=== PATIENT | male | born 1955 | race Hispanic/Latino ===

== ENCOUNTER 2017-01-13 09:27 | Inpatient (IN) | payer MEDICARE, OTHER ==
--- NOTE | 2017-01-13 10:01 | ED PDOC ---
Arrival/HPI - General Historian: Patient, Family (sister) - History of Present Illness Time/Duration: Other (see hpi) Context: Home - General Chief Complaint: Lower Extremity Problem/Injury Time Seen by Provider: 01/13/17 09:46 - History of Present Illness Narrative History of Present Illness (Text): 01/13/17 09:57 This 61 yo male with pmh schizophrenia, HTN, presents to this ED with sister c/ o right foot and ankle erythema x 3 weeks. Patient stated ankle/foot redness worsen 2 weeks ago. Patient was seen by his flag football coach 8 days ago, who prescribed him Bactrim DS, and Indomethacin. Patient went back to see his Metrology Specialist today for follow up. According to patient and sister, Metrology Specialist stated redness has worsen, and patient will need to got to ED for IV antibiotic. Denies fever, sob, recent travel, recent surgery, streaking erythema, calf pain , or chills. Dr. Virgil Davis, PMD (Pallavi Torres) Past Medical History - Provider Review Nursing Documentation Reviewed: Yes - Cardiac Hx Cardiac Disorders: Yes Hx Hypertension: Yes - Pulmonary Hx Respiratory Disorders: No - Neurological Hx Neurological Disorder: No - HEENT Hx HEENT Disorder: No - Renal Hx Renal Disorder: No - Endocrine/Metabolic Hx Endocrine Disorders: No - Hematological/Oncological Hx Blood Disorders: No - Integumentary Hx Dermatological Disorder: No - Musculoskeletal/Rheumatological Hx Musculoskeletal Disorders: No - Gastrointestinal Hx Gastrointestinal Disorders: No - Genitourinary/Gynecological Hx Genitourinary Disorders: No - Psychiatric Hx Psychophysiologic Disorder: Yes (mood disorder) Hx Substance Use: No Family/Social History Family/Social History: Other (non-contributory) Smoking Status: Former Smoker Hx Alcohol Use: No Hx Substance Use: No Allergies/Home Meds Allergies/Adverse Reactions: Allergies No Known Allergies Allergy (Verified 01/13/17 09:37) Home Medications: Home Meds Medication Instructions Recorded Confirmed Benztropine [Cogentin] 0.5 mg PO BID 01/13/17 01/13/17 Losartan Potassium [Losartan 50 mg PO DAILY 01/13/17 01/13/17 Potassium] Ziprasidone [Geodon] 40 mg PO BID 01/13/17 01/13/17 Review of Systems - Review of Systems Constitutional: Normal. absent: Fatigue, Weight Change, Fevers Eyes: Normal ENT: Normal Respiratory: Normal Cardiovascular: Normal Gastrointestinal: Normal Genitourinary Male: Normal Musculoskeletal: Other (see hpi) Skin: Normal Neurological: Normal Endocrine: Normal Hemo/Lymphatic: Normal Psychiatric: Normal Physical Exam Temperature: Afebrile Blood Pressure: Normal Pulse: Regular Respiratory Rate: Normal Appearance: Positive for: Well-Appearing, Non-Toxic, Comfortable Pain Distress: None Mental Status: Positive for: Alert and Oriented X 3 - Systems Exam Head: Present: Atraumatic, Normocephalic Pupils: Present: PERRL Extroacular Muscles: Present: EOMI Conjunctiva: Present: Normal Mouth: Present: Moist Mucous Membranes Neck: Present: Normal Range of Motion Respiratory/Chest: Present: Clear to Auscultation, Good Air Exchange. No: Respiratory Distress, Accessory Muscle Use Cardiovascular: Present: Regular Rate and Rhythm, Normal S1, S2. No: Murmurs Abdomen: Present: Normal Bowel Sounds. No: Tenderness, Distention, Peritoneal Signs Back: Present: Normal Inspection. No: CVA Tenderness Upper Extremity: Present: Normal Inspection, Normal ROM, NORMAL PULSES, Neurovascularly Intact, Capillary Refill < 2s. No: Cyanosis, Edema Lower Extremity: Present: NORMAL PULSES, Normal ROM, Erythema, Temperature Abnormalties (right ankle and foot feel warmth on palpation, with surrounding erythema up to mid right lower leg. (+) mild erythema onl left ankle.), Neurovascularly Intact, Capillary Refill < 2 s. No: Edema, CALF TENDERNESS, Yenifer's Sign, Tenderness, Swelling Neurological: Present: GCS=15, CN II-XII Intact, Speech Normal, Motor Func Grossly Intact, Normal Sensory Function, Normal Cerebellar Funct, Gait Normal, Memory Normal Skin: Present: Warm, Dry, Normal Color. No: Rashes Psychiatric: Present: Alert, Oriented x 3, Normal Insight, Normal Concentration Vital Signs Temp Pulse Resp BP Pulse Ox 01/13/17 11:48 89 18 145/74 98 01/13/17 09:36 99.3 F 94 H 16 147/84 97 Medical Decision Making Re-evaluation Time: 12:19 Reassessment Condition: Re-examined, Improving,but remains with symptoms - Lab Interpretations I have reviewed the lab results: Yes Interpretation: No clinic. lab abnormalty ED Course and Treatment: 01/13/17 10:15: I was available for consultation during PA evaluation. The chart was reviewed by me, and I agree with disposition. The documented history was done by the physician manager commercial real estate. The documented physical exam was done by the physician manager commercial real estate. The documented procedures were done by the physician manager commercial real estate. (Kun Mercado) 01/13/17 12:[address] Graves , who is covering for Dr. Virgil Davis. He agrees with plan for admission for cellulitis and failure of out-patient treatment. (Pallavi Torres) - Lab Interpretations Lab Results: 01/13/17 10:00 01/13/17 10:00 Lab Results 01/13/17 11:50: Urine Color Yellow, Urine Appearance Clear, Urine pH 6.0, Ur Specific [place] >= 1.030, Urine Protein Negative, Urine Glucose (UA) Negative, Urine Ketones Negative, Urine Blood Trace-lysed H, Urine Nitrate Negative, Urine Bilirubin Negative, Urine Urobilinogen 0.2, Ur Leukocyte Esterase Negative , Urine RBC 0 - 2, Urine WBC Negative 01/13/17 10:21: pO2 100 H, VBG pH 7.41, VBG pCO2 35.0 L, VBG HCO3 22.2, VBG Total CO2 23.3, VBG O2 Sat (Calc) 99.2 H, VBG Base Excess -1.8 L, VBG Potassium 4.5, Glucose 100, Lactate 1.3, FiO2 21.0, Sodium 135.0, Chloride 103.0, Venous Blood Potassium 4.5 01/13/17 10:20: Uric Acid 4.4 01/13/17 10:00: Sodium 138, Potassium 4.6, Chloride 105, Carbon Dioxide 19 L, Anion Gap 19, BUN 15, Creatinine 1.3, Est GFR ( Amer) > 60, Est GFR (Non- Af Amer) 56, Random Glucose 101, Calcium 9.4, Phosphorus 3.3, Magnesium 2.1, Total Bilirubin 1.0, AST 25, ALT 24, Alkaline Phosphatase 56, Troponin I < 0.01 , NT-Pro-B Natriuret Pep 65.0, Total Protein 8.0, Albumin 4.6, Globulin 3.4, Albumin/Globulin Ratio 1.4 01/13/17 10:00: PT 10.8, INR 1.00, APTT 29.0 01/13/17 10:00: WBC 5.4, RBC 4.63, Hgb 15.3, Hct 42.1, MCV 90.9, MCH 33.0, MCHC 36.3, RDW 13.7, Plt Count 87 L, MPV 8.8, Gran % 72.9 H, Lymph % (Auto) 17.2 L, Russell % (Auto) 7.1 H, Eos % (Auto) 2.1, Baso % (Auto) 0.7, Gran # 3.91, Lymph # 0.9 L, Russell # 0.4, Eos # 0.1, Baso # 0.04, ESR 5 - RAD Interpretation Narrative RAD Interpretations (Text): 01/13/17 11:21 Accession No. : [id number] Patient Name / ID : STEPHANIE COBB / [id number] Exam Date : 01/13/2017 10:14:07 ( Approved ) Study Comment : Sex / Age : M / 61Y Creator : Angela Glasgow V. Dictator : Angela Glasgow V. Weave Room Supervisor : [employer] Equipment Tender : Angela Glasgow V. Approver2 : Report Date : 01/13/2017 11:04:08 My Comment : HISTORY: admission COMPARISON: No prior. FINDINGS: LUNGS: Shallow lung volumes No consolidation. Right hilum borderline prominent -prominent vessel on end 1 consideration. Recommend comparison with prior studies to ensure stability and to exclude any right hilar neoplastic pathology. PLEURA: No significant pleural effusion identified, no pneumothorax apparent. CARDIOVASCULAR: Top-normal heart size OSSEOUS STRUCTURES: Thoracic spondylosis VISUALIZED UPPER ABDOMEN: Normal. OTHER FINDINGS: None. IMPRESSION: No infiltrate. Possible prominent right hilum due to vessel seen on end. No comparison studies to ensure stability. Comparison recommended. 01/13/17 12:26 Venous doppler lower extremity: No DVT , as per US (Torres,Nahim P) Radiology Orders: 01/13/17 10:04 CHEST PORTABLE [RAD] Stat 01/13/17 10:09 DUPLEX LOWER EXTRM VEIN BILAT [US] Stat 01/13/17 10:10 ANKLE RIGHT 3 VIEWS ROUTINE [RAD] Stat FOOT RIGHT 3 VIEWS ROUTINE [RAD] Stat - Medication Orders Current Medication Orders: Discontinued Medications Piperacillin Sod/Tazobactam Sod (Zosyn 4.5 Gm In Ns 100ml) 4.6 gm in 102.22 mls @ 200 mls/hr IVPB STAT STA PRN Reason: Protocol Stop: 01/13/17 10:41 Last Admin: 01/13/17 10:20 Dose: 200 mls/hr Vancomycin HCl (Vancomycin 1gm) 1 gm in 250 mls @ 167 mls/hr IVPB STAT STA PRN Reason: Protocol Stop: 01/13/17 11:42 Last Admin: 01/13/17 12:15 Dose: 167 mls/hr Disposition/Present on Arrival - Present on Arrival Any Indicators Present on Arrival: No History of DVT/PE: No History of Uncontrolled Diabetes: No Urinary Catheter: No History of Decub. Ulcer: No History Surgical Site Infection Following: None - Disposition Have Diagnosis and Disposition been Completed?: Yes Disposition Time: 12:21 Patient Plan: Discharge - Disposition Diagnosis: Cellulitis, Failure of outpatient treatment, Abnormal chest xray Disposition: HOSPITALIZED Patient Problems: Current Active Problems Problem Status Onset Cellulitis Acute Failure of outpatient treatment Acute Condition: STABLE Discharge Instructions (ExitCare): Cellulitis (ED) Referrals: PCP,NO [Primary Care Provider] - Follow up with primary Forms: [employer] (Irish)
[2017-01-13] MEDS ORDERED: Piperacill/Tazo 4.5gm in NS 100 ML IVPB STA (10:04)
[2017-01-13] MEDS ORDERED: Vancomycin 1gm in NS 250ml 250 ML IVPB STA (10:04)
[2017-01-13] MEDS ORDERED: PIPERACILL IVPB STA (10:11)
[2017-01-13] MEDS ORDERED: NS IVPB STA (10:11)
[2017-01-13] MEDS ORDERED: TAZO IVPB STA (10:11)
[2017-01-13] MEDS ORDERED: Vancomycin 1gm in NS 250ml 1 GM/250 ML BAG IVPB STA (10:13)
[2017-01-13 10:17] LABS: BASO # 0.04 K/mm3 (0.0-2.0); BASO % 0.7 % (0.0-3.0); EOS # 0.1 (0.0-0.7); EOS % 2.1 % (1.5-5.0); GRAN # 3.91 (1.4-6.5); GRAN % 72.9 % (50.0-68.0); HEMATOCRIT 42.1 % (42.0-52.0); LYMPH # 0.9 (1.2-3.4); LYMPH % 17.2 % (22.0-35.0); MEAN CELL VOLUME 90.9 fl (80.0-105.0); MEAN CORPUSCULAR HGB CONC 36.3 g/dl (31.0-37.0); MEAN PLATELET VOLUME 8.8 fl (7.0-11.0); MONO # 0.4 (0.1-0.6); MONO % 7.1 % (1.0-6.0); RED CELL DISTRIBUTION WIDTH 13.7 % (11.5-14.5); WHITE BLOOD COUNT 5.4 10^3/ul (4.5-11.0)
[2017-01-13 10:29] LABS: VENOUS BLOOD GAS BASE EXCESS -1.8 mmol/L (0.0-2.0); VENOUS BLOOD PH 7.41 (7.32-7.43)
[2017-01-13 10:33] LABS: ALB/GLOB RATIO 1.4 (1.1-1.8); ALKALINE PHOSPHATASE 56 U/L (38-133); ALT/SGPT 24 U/L (7-56); AST/SGOT 25 U/L (15-59); BLOOD UREA NITROGEN 15 mg/dL (7-21); CALCIUM 9.4 mg/dL (8.4-10.5); CARBON DIOXIDE 19 mmol/L (21-33); CHLORIDE 105 mmol/L (98-107); GFR AFRICAN-AMERICAN > 60; GLUCOSE,RANDOM 101 mg/dL (70-110); MAGNESIUM 2.1 mg/dL (1.7-2.2); PHOSPHOROUS 3.3 mg/dL (2.5-4.5); POTASSIUM 4.6 mmol/L (3.6-5.0); SODIUM 138 mmol/L (132-148)
[2017-01-13 10:44] LABS: TROPONIN I < 0.01 ng/mL
--- NOTE | 2017-01-13 11:05 | RAD ---
HISTORY: admission COMPARISON: No prior. FINDINGS: LUNGS: Shallow lung volumes No consolidation. Right hilum borderline prominent -prominent vessel on end 1 consideration. Recommend comparison with prior studies to ensure stability and to exclude any right hilar neoplastic pathology. PLEURA: No significant pleural effusion identified, no pneumothorax apparent. CARDIOVASCULAR: Top-normal heart size OSSEOUS STRUCTURES: Thoracic spondylosis VISUALIZED UPPER ABDOMEN: Normal. OTHER FINDINGS: None. IMPRESSION: No infiltrate. Possible prominent right hilum due to vessel seen on end. No comparison studies to ensure stability. Comparison recommended.
--- NOTE | 2017-01-13 11:52 | US ---
HISTORY: Leg pain and swelling. Evaluate for DVT PHYSICIAN(S): Clement Davis MD. TECHNIQUE: Duplex sonography and color-flow Doppler with graded compression were used to evaluate the deep venous systems of both lower extremities. The tibial veins are not adequately seen. FINDINGS: The visualized deep venous systems of both lower extremities are sonographically normal and compressible. Normal wave forms and augmentation are seen. There is no sonographic evidence for deep venous thrombosis in the visualized segments of both lower extremities. IMPRESSION: No sonographic evidence for deep venous thrombosis in the visualized segments of both lower extremities. Limited study.
[2017-01-13 12:05] LABS: URINE BILIRUBIN NEGATIVE (NEGATIVE); URINE BLOOD TRACE-LYSED (NEGATIVE); URINE GLUCOSE (UA) NEGATIVE (NEGATIVE); URINE KETONE NEGATIVE (NEGATIVE); URINE LEUKOCYTE ESTERASE NEGATIVE Leu/uL (NEGATIVE); URINE PROTEIN NEGATIVE mg/dL (<30 mg/dL); URINE UROBILINOGEN 0.2 E.U./dL (<1 E.U./dL)
[2017-01-13 12:06] LABS: URINE APPEARANCE CLEAR (CLEAR); URINE COLOR YELLOW (YELLOW)
[2017-01-13 12:12] LABS: URINE RBC 0 - 2 /hpf (0-2); URINE WBC NEGATIVE /hpf (0-6)
--- NOTE | 2017-01-13 12:18 | RAD ---
PROCEDURE: Right Foot Radiographs. HISTORY: swelling COMPARISON: None. FINDINGS: BONES: . No fracture. Inferior and posterior calcaneal spurring. Achilles tendon insertional blending enthesophyte. JOINTS: First metatarsal-phalangeal joint osteoarthrosis SOFT TISSUES: Normal. OTHER FINDINGS: None. IMPRESSION: No fracture Mild 1st metatarsal-phalangeal joint arthrosis. Calcaneal spurring
--- NOTE | 2017-01-13 12:22 | RAD ---
PROCEDURE: Right Ankle Radiographs. HISTORY: swelling COMPARISON: None FINDINGS: BONES: Hypertrophic changes border the border the medial malleolus. No fracture. Inferior posterior calcaneal spurring JOINTS: Partially visualized is 1st metatarsal-phalangeal joint arthrosis. Ankle mortise maintained. Talar dome intact SOFT TISSUES: Reticulated subcutaneous edema circumferential around the lower leg and ankle OTHER FINDINGS: None. IMPRESSION: No fracture or dislocation. Subcutaneous edema -probably relating to lymphedema Osseous hypertrophic productive changes
[2017-01-13] MEDS ORDERED: ZIPRASIDONE 40 MG PO SCH (16:00)
--- NOTE | 2017-01-13 16:27 | CP.PCM.CON ---
<Donny Simpson - Last Filed: 01/13/17 16:21> History of Present Illness - History of Present Illness History of Present Illness: 61 year old male patient with PMHx of schizophrenia, HTN was seen at bedside today with attending Dr. Jacobs concerning erythema to right lower extremity aroudn ankle. Patient is present with his who explains that the redness was first noticed 2 weeks ago, and without any trauma. She suspects a bug bite since she noticed a small bump at the anterior aspect of the right ankle which is not visible anymore. Patient does not have much pain to the area even on palpation. Patient denies any history of gout. Patient denies of any N/V/F/C associated with the redness. Past Patient History - Past Social History Smoking Status: Former Smoker - CARDIAC Hx Cardiac Disorders: Yes Hx Hypertension: Yes - PULMONARY Hx Respiratory Disorders: No - NEUROLOGICAL Hx Neurological Disorder: No - HEENT Hx HEENT Problems: No - RENAL Hx Chronic Kidney Disease: No - ENDOCRINE/METABOLIC Hx Endocrine Disorders: No - HEMATOLOGICAL/ONCOLOGICAL Hx Blood Disorders: No - INTEGUMENTARY Hx Dermatological Problems: No - MUSCULOSKELETAL/RHEUMATOLOGICAL Hx Musculoskeletal Disorders: No - GASTROINTESTINAL Hx Gastrointestinal Disorders: No - GENITOURINARY/GYNECOLOGICAL Hx Genitourinary Disorders: No - PSYCHIATRIC Hx Psychophysiologic Disorder: Yes (mood disorder) Hx Substance Use: No - SURGICAL HISTORY Hx Surgeries: No Meds Allergies/Adverse Reactions: Allergies Allergy/AdvReac Type Severity Reaction Status Date / Time No Known Allergies Allergy Verified 01/13/17 14:46 - Medications Medications: Current Medications Benztropine Mesylate (Cogentin) 0.5 mg PO BID [facility] Last Admin: 01/13/17 16:06 Dose: 0.5 mg Losartan Potassium (Cozaar) 50 mg PO DAILY [facility] Last Admin: 01/13/17 16:06 Dose: 50 mg Ziprasidone (Geodon Cap) 40 mg PO BID [facility] Physical Exam - Constitutional Appears: Well, Non-toxic, No Acute Distress - Head Exam Head Exam: ATRAUMATIC - Extremities Exam Additional comments: Right lower extremity exam DERM: No open wound is noted. No maceration is noted. Moderate erythema is noted to right ankle extending proximally to level of calf and distally to level of digits. No drainage is noted. No mal-odor noted. No point of puncture wound is noted to right lower extremity VASC: Palpable DP and PT noted bilaterally 2/4. MANAGER ART less than 3 seconds to all digits ORTHO: No pain on palpation to right ankle. NEURO: Gross sensation intact - Neurological Exam Neurological exam: Alert, Oriented x3 - Psychiatric Exam Psychiatric exam: Normal Affect, Normal Mood - Skin Skin Exam: Normal Color, Warm Results - Vital Signs Recent Vital Signs: Last Vital Signs Temp 98.3 F 01/13/17 16:00 Pulse 85 01/13/17 16:06 Resp 18 01/13/17 16:00 BP 139/80 01/13/17 16:06 Pulse Ox 100 01/13/17 16:00 - Labs Result Diagrams: 01/13/17 10:00 01/13/17 10:00 Assessment & Plan - Assessment and Plan (Free Text) Assessment: 61 yo male patient presents with cellulitis to right lower extremity poss. secondary to spider bite Plan: Patient was seen, evaluated and treated with all questions and concerns addressed Rounded with attending Dr. Jacbos Labs and vitals reviewed; No leukocytosis, Uric Acid 4.4, ESR 5, Afebrile Xray right ankle reveals no acute fracture Plan for bedside needle aspiration tomorrow Continue IV Abx as per ID Podiatry will continue to follow in-house <Summer Jacobs - Last Filed: 01/24/17 19:33> Results - Vital Signs Recent Vital Signs: Last Vital Signs Temp 99 F 01/16/17 08:03 Pulse 85 01/16/17 10:29 Resp 20 01/16/17 08:03 BP 135/83 01/16/17 10:29 Pulse Ox 97 01/16/17 08:03 - Labs Result Diagrams: 01/15/17 06:30 01/15/17 06:30 Attending/Attestation - Attestation I have personally seen and examined this patient.: Yes I have fully participated in the care of the patient.: Yes I have reviewed all pertinent clinical information: Yes
--- NOTE | 2017-01-13 17:04 | CARD ---
APPROVED REPORT EKG Measurement Heart [id number] MD [id number] <Conclusion> Normal sinus rhythm Inferior infarct, age undetermined Abnormal ECG
[2017-01-13 18:56] VITALS: BMI 30.1
[2017-01-13] MEDS ORDERED: Pneumococcal 23-Valent Vaccine IM ONE (18:56)
[2017-01-14 09:00] VITALS: RESP 20
--- NOTE | 2017-01-14 10:01 | CP.PCM.PN ---
<Donny Simpson - Last Filed: 01/14/17 09:56> Subjective - Date & Time of Evaluation Date of Evaluation: 01/14/17 Time of Evaluation: 09:56 - Subjective Subjective: 61 year old male patient was seen at bedside today with attending Dr. Jacobs concerning cellulitis to right lower extremity. Patient states that he notices improvements in terms of swelling and pain. Patient does not have much pain to the area even on palpation. Patient denies of any N/V/F/C associated with the redness. Objective - Vital Signs/Intake and Output Vital Signs (last 24 hours): Temp Pulse Resp BP Pulse Ox 98.7 F 76 20 143/89 99 01/14/17 08:58 01/14/17 08:58 01/14/17 08:58 01/14/17 08:58 01/14/17 08:58 Intake and Output: 01/14/17 01/14/17 06:59 18:59 Intake Total 240 Balance 240 - Medications Medications: Current Medications Benztropine Mesylate (Cogentin) 0.5 mg PO BID [facility] Last Admin: 01/13/17 16:06 Dose: 0.5 mg Losartan Potassium (Cozaar) 50 mg PO DAILY [facility] Last Admin: 01/13/17 16:06 Dose: 50 mg Ziprasidone (Geodon Cap) 40 mg PO BID [facility] - Labs Labs: PT 10.8 Seconds (9.9-11.8) 01/13/17 10:00 INR 1.00 (0.93-1.08) 01/13/17 10:00 APTT 29.0 Seconds (23.7-30.8) 01/13/17 10:00 - Constitutional Appears: Well, Non-toxic, No Acute Distress - Head Exam Head Exam: ATRAUMATIC - Extremities Exam Additional comments: Right lower extremity exam DERM: Erythema is noticeably decreased from that of yesterday No open wound is noted. No maceration is noted. Moderate erythema is noted to right ankle extending proximally to level of calf and distally to level of digits. No drainage is noted. No mal-odor noted. No point of puncture wound is noted to right lower extremity VASC: Swelling is decreased compared to yesterday. Palpable DP and PT noted bilaterally 2/4. MANAGER SAFE less than 3 seconds to all digits ORTHO: No pain on palpation to right ankle. NEURO: Gross sensation intact - Neurological Exam Neurological Exam: Alert, Awake, Oriented x3 - Psychiatric Exam Psychiatric exam: Normal Affect, Normal Mood - Skin Skin Exam: Normal Color, Warm Assessment and Plan - Assessment and Plan (Free Text) Assessment: 61 yo male patient presents with cellulitis to right lower extremity poss. secondary to spider bite Plan: Patient was seen, evaluated and treated with all questions and concerns addressed Rounded with attending Dr. Jacobs Labs and vitals reviewed; No leukocytosis, Uric Acid 4.4, ESR 5, Afebrile Xray right ankle reveals no acute fracture Needle aspiration not performed as there are noticeable improvements in terms of erythema, swelling and pain Continue IV Abx as per ID Podiatry will continue to follow in-house <Summer Jacobs - Last Filed: 01/24/17 19:35> Objective - Vital Signs/Intake and Output Vital Signs (last 24 hours): Temp Pulse Resp BP Pulse Ox 99 F 85 20 135/83 97 01/16/17 08:03 01/16/17 10:29 01/16/17 08:03 01/16/17 10:29 01/16/17 08:03 - Labs Labs: 01/15/17 06:30 01/15/17 06:30 PT 10.8 Seconds (9.9-11.8) 01/13/17 10:00 INR 1.00 (0.93-1.08) 01/13/17 10:00 APTT 29.0 Seconds (23.7-30.8) 01/13/17 10:00 Attending/Attestation - Attestation I have personally seen and examined this patient.: Yes I have fully participated in the care of the patient.: Yes I have reviewed all pertinent clinical information, including history, physical exam and plan: Yes
[2017-01-14 12:24] LABS: BASO # 0.02 K/mm3 (0.0-2.0); BASO % 0.4 % (0.0-3.0); EOS % 0.8 % (1.5-5.0); GRAN # 3.77 (1.4-6.5); GRAN % 72.2 % (50.0-68.0); HEMATOCRIT 38.4 % (42.0-52.0); LYMPH # 0.9 (1.2-3.4); LYMPH % 17.2 % (22.0-35.0); MEAN CORPUSCULAR HEMOGLOBIN 32.4 pg (25.0-35.0); MEAN CORPUSCULAR HGB CONC 34.9 g/dl (31.0-37.0); MEAN PLATELET VOLUME 8.9 fl (7.0-11.0); MONO # 0.5 (0.1-0.6); MONO % 9.4 % (1.0-6.0); WHITE BLOOD COUNT 5.2 10^3/ul (4.5-11.0)
[2017-01-14 12:51] LABS: FREE T4 1.03 ng/dL (0.78-2.19)
[2017-01-14 13:04] LABS: THYROID STIMULATING HORMONE 5.06 mIU/mL (0.46-4.68)
[2017-01-14] MEDS ORDERED: Vancomycin 1gm in NS 250ml 1 GM/250 ML BAG IVPB SCH (13:30)
[2017-01-14] MEDS ORDERED: Vancomycin 1gm in NS 250ml 1 GM/250 ML BAG IVPB STA (15:56)
[2017-01-14] MEDS ORDERED: Linezolid 600 mg in D5W 300 ml 600 MG/300 ML BAG IVPB SCH (22:00)
--- NOTE | 2017-01-14 23:10 | CON ---
DATE: 01/14/2017 HISTORY OF PRESENT ILLNESS: The patient is a 61-year-old white male, who was brought to the emergency room by his sister and at the advise of his steam locomotive firer/fireman due to increasing swelling and erythema of his right ankle lower leg. The patient has had redness for approximately three weeks of p.o. antibiotics, but failed to respond. Currently in the hospital for the antibiotics for cellulitis. He had a possible insect bite. Patient has a long history of schizophrenia. He has been under my care for many years. PAST MEDICAL HISTORY: Includes history of hypertension. SOCIAL HISTORY: He has a history of alcohol abuse, none in the past 10-15 days. He is non smoker, no substance abuse. MEDICATIONS: The patient has been on antipsychotic medicines for many years. Currently at home taking prescribed Geodon 40 mg twice a day and Cogentin 0.5 mg b.i.d. PERSONAL HISTORY: He is unmarried. He lives in a two-family home. His sister and family lives upstairs. The patient's mother from a lung cancer and father from pancreatic cancer. CURRENT LABORATORY DATA: His sodium 138, potassium 4.2, chloride 105, CO2 of 19, anion gap 19, BUN 15, and creatinine 1.3. Estimated GFR of 56. All his leukocytes, uric acid, all his liver functions are within normal range. He has C-reactive protein of 13.9 with interval 1 to 3. Albumin, globulin, total protein are normal. The patient's CBC has white count is 5400, hemoglobin 15.3, hematocrit 42.1 and he has platelet count of 87, 000. The patient's urinalysis essentially normal. His blood gas has PO2 of 100 on FiO2 21. Patient's venous pH is 7.41, venous CO2 is 35.0. CURRENT MEDICATIONS: Cogentin 0.5 mg b.i.d., Cozaar 50 mg daily, the patient is on trazodone 40 mg b.i.d. He had a dose of Zosyn IV and he had dose of vancomycin IV. The patient also had pneumococcal vaccine. REVIEW OF SYSTEM: He has tenderness to his right lower extremity, otherwise 12-point review of systems is noncontributory. PHYSICAL EXAMINATION: VITAL SIGNS: Blood pressure 143/89, pulse 76, afebrile, saturation 98% on room air. The patient has right lower extremity, which is red and swollen around his ankle area. NEUROLOGIC: He moves all extremities. No obvious focal neurological findings. He has slight tremor. PSYCHIATRIC: Mental status. He is awake, alert, coherent, lucid, sensorium is clear, oriented x3. No hallucination paranoia, depression or suicidal ideations. Recent memory intact. Speech is somewhat pressured, he is somewhat anxious. IMPRESSION: The patient has cellulitis possible secondary to insect bite in his right lower extremity. Has a history of chronic schizophrenia, mostly in remission. He has thrombocytopenia, also has an elevated C-reactive protein. The patient has possible history of cirrhosis. PLAN: We will continue Eder and Saleementin. We will monitor mental status. William Suazo MD G[facility]
[2017-01-15 07:19] LABS: MEAN CELL VOLUME 93.7 fl (80.0-105.0); MEAN CORPUSCULAR HEMOGLOBIN 32.1 pg (25.0-35.0); MEAN CORPUSCULAR HGB CONC 34.3 g/dl (31.0-37.0); MEAN PLATELET VOLUME 8.8 fl (7.0-11.0); RED CELL DISTRIBUTION WIDTH 14.2 % (11.5-14.5); WHITE BLOOD COUNT 4.4 10^3/ul (4.5-11.0)
[2017-01-15 07:37] LABS: ALB/GLOB RATIO 1.3 (1.1-1.8); ALKALINE PHOSPHATASE 46 U/L (38-133); ALT/SGPT 25 U/L (7-56); AST/SGOT 31 U/L (15-59); BILIRUBIN,TOTAL 1.4 mg/dL (0.2-1.3); BLOOD UREA NITROGEN 13 mg/dL (7-21); CALCIUM 8.6 mg/dL (8.4-10.5); CARBON DIOXIDE 24 mmol/L (21-33); CHLORIDE 102 mmol/L (98-107); GFR AFRICAN-AMERICAN > 60; GLUCOSE,RANDOM 90 mg/dL (70-110); POTASSIUM 4.7 mmol/L (3.6-5.0); SODIUM 135 mmol/L (132-148); TOTAL PROTEIN 7.1 g/dL (5.8-8.3)
[2017-01-15] MEDS: Ceftaroline 600 MG in Sodium Chloride 0.9% 100 ML IVPB SCH ×2 (10:27→21:35)
--- NOTE | 2017-01-15 11:53 | HP ---
CHIEF COMPLAINT AND HISTORY OF PRESENT ILLNESS: This is a 61-year-old male who has come in to the hospital with past medical history of hypertension, schizophrenia, and alcoholism. The patient was brought in by his sister complaining of right foot and ankle pain. There was redness that was there for the past 3 days. It has been getting progressively worse. He had gone to see his slicing machine operator/tender about 8 days ago and was given Bactrim for his infection. They did not improve, so he came in. He was advised by his slicing machine operator/tender coming to the ER for further management. The patient states that he is feeling well. He is not complaining of any headache or dizziness. No nausea or vomiting. No dysuria, frequency, nocturia. He is able to walk on his foot. All the review of symptoms are within normal limits except as mentioned. MEDICATIONS: None. ALLERGIES: NO KNOWN DRUG ALLERGIES. PAST MEDICAL HISTORY: Hypertension, schizophrenia,and alcohol. SOCIAL HISTORY: He was a heavy alcoholic, but quit. PAST SURGICAL HISTORY: Tonsillectomy. FAMILY HISTORY: Noncontributory. PHYSICAL EXAMINATION: VITAL SIGNS: He has a temperature of 98.7, pulse 76, Blood pressure 142/89, respirations 20, O2 saturation 99%. Height is 5 feet 10 inches, weight 210 pounds, and BMI 30.1. GENERAL: The patient lying in bed, uncomfortable, and in no acute distress. HEENT: Atraumatic and normocephalic. Anicteric sclerae. Moist mucosa. [place] conjunctivae. No oral lesions. NECK: No JVD, anterior and posterior adenopathy, thyromegaly, or bruits. CARDIOVASCULAR: S1 and S2 regular. No murmur, rubs, or gallop. LUNGS: Clear to auscultation bilaterally. No wheezes, rales, or rhonchi. ABDOMEN: Bowel sounds are positive. Soft, nontender and nondistended. No hepatosplenomegaly. No rebound and no guarding. EXTREMITIES: No cyanosis, clubbing, or edema. In the right foot there is erythema in the upper part of the foot. No lacerations. No discharge. No ulcers. NEUROLOGIC: No facial asymmetry. Tongue is midline. No uvula deviation. Power is 5/5 upper extremity and lower extremity. Sensation intact in upper extremity and lower extremity. PSYCHIATRIC: No blunted affect. No hallucinations. Denies depression. GENITOURINARY: No CVA tenderness. VASCULAR: 2+ pulses in the carotid pulses and pedal pulses. SKIN: No erythema or nodules. SPINE: Shows normal curvature. LABORATORY DATA: Have been reviewed. White count of 5.4, hemoglobin 15.3. INR is just one. He has a chemistry that shows sodium 138, potassium 4.6, and creatinine 1.3. He has TSH of 5.06. Vitamin D is 45. His urine shows glucose is negative, ketones are negative, nitrates are negative. He has CT scan done in March 2013 showing the spleen is in normal size. He has a chest x-ray done that shows no infiltrates. EKG done shows sinus rhythm at 76. No ST-T changes. Right foot x-ray shows no fracture, there is a mild first metatarsophalangeal joint arthrosis. Right ankle x-ray shows fractures and dislocation. He had an ultrasound of the legs that shows no evidence of DVT. ASSESSMENT: 1. Right foot cellulitis. 2. Schizophrenia. 3. Hypertension. 4. Thrombocytopenia. PLAN: The patient is currently comfortable. He is receiving losartan for his hypertension. He is on Geodon twice a day. I did speak to , who is his chief psychiatrist. He will follow the patient for his schizophrenia. His low platelets is most likely secondary to cirrhosis that he may have developed because of his alcoholism. He does not drink any more. The patient is on linezolid. We will get evaluation by infectious disease as well and also get consultation from hematology to evaluate for the thrombocytopenia. Luis Graves MD
[2017-01-15 13:01] LABS: FOLATE 3.4 ng/mL
--- NOTE | 2017-01-15 13:03 | CP.PCM.PN ---
<Donny Simpson - Last Filed: 01/15/17 13:02> Subjective - Date & Time of Evaluation Date of Evaluation: 01/15/17 Time of Evaluation: 10:20 - Subjective Subjective: 61 year old male patient was seen at bedside today concerning cellulitis to right lower extremity. Swelling, redness reduced. Patient does not have much pain to the area even on palpation. Patient denies of any N/V/F/C associated with the redness. Objective - Vital Signs/Intake and Output Vital Signs (last 24 hours): Temp Pulse Resp BP Pulse Ox 98.2 F 82 20 133/81 98 01/15/17 08:39 01/15/17 08:39 01/15/17 08:39 01/15/17 10:28 01/15/17 08:39 Intake and Output: 01/15/17 01/15/17 06:59 18:59 Intake Total 300 240 Balance 300 240 - Medications Medications: Current Medications Benztropine Mesylate (Cogentin) 0.5 mg PO BID [facility] Last Admin: 01/15/17 10:28 Dose: 0.5 mg Ceftaroline Fosamil 600 mg/ (Sodium Chloride) 100 mls @ 100 mls/hr IVPB Q12 [facility] PRN Reason: Protocol Stop: 01/24/17 10:01 Last Admin: 01/15/17 10:27 Dose: 100 mls/hr Losartan Potassium (Cozaar) 50 mg PO DAILY [facility] Last Admin: 01/15/17 10:28 Dose: 50 mg Ziprasidone (Geodon Cap) 40 mg PO BID [facility] Last Admin: 01/15/17 10:27 Dose: 40 mg - Labs Labs: 01/15/17 06:30 01/15/17 06:30 PT 10.8 Seconds (9.9-11.8) 01/13/17 10:00 INR 1.00 (0.93-1.08) 01/13/17 10:00 APTT 29.0 Seconds (23.7-30.8) 01/13/17 10:00 - Constitutional Appears: Well, Non-toxic, No Acute Distress - Extremities Exam Additional comments: Right lower extremity exam DERM: Erythema is noticeably decreased No open wound is noted. No maceration is noted. Moderate erythema is noted to right ankle extending proximally to level of calf and distally to level of digits. No drainage is noted. No mal-odor noted. No point of puncture wound is noted to right lower extremity VASC: Swelling is decreased compared to yesterday. Palpable DP and PT noted bilaterally 2/4. FORENSIC AUDIT EXPERT less than 3 seconds to all digits ORTHO: No pain on palpation to right ankle. NEURO: Gross sensation intact - Neurological Exam Neurological Exam: Alert, Awake, Oriented x3 - Psychiatric Exam Psychiatric exam: Normal Affect, Normal Mood - Skin Skin Exam: Normal Color, Warm Assessment and Plan - Assessment and Plan (Free Text) Assessment: 61 yo male patient presents with cellulitis to right lower extremity poss. secondary to spider bite Plan: Patient was seen, evaluated and treated with all questions and concerns addressed Discussed in detail with attending Dr. Tobar Labs and vitals reviewed; Continue IV Abx Podiatry will continue to follow in-house <Tan Tobar - Last Filed: 01/15/17 16:32> Objective - Vital Signs/Intake and Output Vital Signs (last 24 hours): Temp Pulse Resp BP Pulse Ox 98.2 F 82 20 133/81 98 01/15/17 08:39 01/15/17 08:39 01/15/17 08:39 01/15/17 10:28 01/15/17 08:39 Intake and Output: 01/15/17 01/15/17 06:59 18:59 Intake Total 300 240 Balance 300 240 - Medications Medications: Current Medications Benztropine Mesylate (Cogentin) 0.5 mg PO BID [facility] Last Admin: 01/15/17 10:28 Dose: 0.5 mg Ceftaroline Fosamil 600 mg/ (Sodium Chloride) 100 mls @ 100 mls/hr IVPB Q12 [facility] PRN Reason: Protocol Stop: 01/24/17 10:01 Last Admin: 01/15/17 10:27 Dose: 100 mls/hr Losartan Potassium (Cozaar) 50 mg PO DAILY [facility] Last Admin: 01/15/17 10:28 Dose: 50 mg Ziprasidone (Geodon Cap) 40 mg PO BID [facility] Last Admin: 01/15/17 10:27 Dose: 40 mg - Labs Labs: 01/15/17 06:30 01/15/17 06:30 PT 10.8 Seconds (9.9-11.8) 01/13/17 10:00 INR 1.00 (0.93-1.08) 01/13/17 10:00 APTT 29.0 Seconds (23.7-30.8) 01/13/17 10:00 Attending/Attestation - Attestation I have personally seen and examined this patient.: Yes I have fully participated in the care of the patient.: Yes I have reviewed all pertinent clinical information, including history, physical exam and plan: Yes
--- NOTE | 2017-01-15 13:26 | PN ---
DATE: 01/15/2017 SUBJECTIVE: The patient has no complaints of any chest pain. No shortness of breath. No headaches. He had initially come into the hospital because of cellulitis on the right foot. He was seen by infectious disease, and his antibiotics were adjusted. He had x-rays that showed no signs of osteomyelitis. His erythema redness started to improve. He has no fever or chills. He has no white count. PHYSICAL EXAMINATION: VITAL SIGNS: Temperature is 98.7, pulse is 76, blood pressure is 142/89, and respirations 20. GENERAL: The patient is lying in bed, flat, comfortable. HEENT: No oral lesion. Anicteric sclerae. Moist mucosa. NECK: No JVD, adenopathy, or thyromegaly. CARDIOVASCULAR: S1 and S2, regular. No murmurs, rubs, or gallops. LUNGS: Clear to auscultation bilaterally. No wheeze, rales, or rhonchi. ABDOMEN: Bowel sounds are positive, soft, nontender and nondistended. EXTREMITIES: No cyanosis, clubbing or edema. Right foot with erythema that is improving. ASSESSMENT: 1. Right foot cellulitis. 2. Schizophrenia, chronic, stable. 3. Thrombocytopenia, possibly from cirrhosis. 4. Hypertension. PLAN: The patient is currently comfortable. He is on Zyvox. The patient is on losartan for hypertension. He is receiving Geodon. We will await for the input from the infectious disease. It is possible the patient may be able to get p.o. antibiotics, although the patient feels outpatient treatment was Bactrim. He is on a heart-healthy diet. He is currently comfortable. Condition stable. Activities increase as tolerated. Luis Graves MD
--- NOTE | 2017-01-15 14:35 | CON ---
DATE: 01/15/2017 CHIEF COMPLAINT: Infection of the right leg, right ankle and foot times several days. HISTORY OF PRESENT ILLNESS: This is a 61-year-old male with a history of schizophrenia, hypertension, coronary artery disease, who was admitted with a diagnosis of cellulitis. Infectious disease consultation requested. REVIEW OF SYSTEMS: Reveals no fevers. No chills. No nausea or vomiting. No chest pain. No abdominal pain, diarrhea or constipation. No headaches and blurred vision. PAST MEDICAL HISTORY: Significant for schizophrenia, hypertension and coronary artery disease. PAST SURGICAL HISTORY: Significant for tonsillectomy. ALLERGIES: THE PATIENT HAS NO KNOWN ALLERGIES. MEDICATIONS: Revealed the patient to be on Cogentin, losartan, and Geodon. PHYSICAL EXAMINATION: VITAL SIGNS: The patient's temperature is 98, blood pressure is 130/70, respiratory rate of 18, heart rate of 80. HEENT: Unremarkable NECK: Supple. LUNGS: Decreased breath sounds. HEART: Normal S1 and S2. ABDOMEN: Soft, nontender. LABORATORY DATA: Reveals a white count of 4.4, hemoglobin of 13, and platelets of 70. Chemistry reveals the BUN of 13, creatinine of 1.0. She did have a creatinine of 1.3 two days ago, total bilirubin 1.4, AST and ALT is normal, alkaline phosphatase is normal, C-reactive protein is elevated at 13.98. Urinalysis is noted. Microbiology reveals the blood cultures are no growth. Consultation with Dr. William Suazo is noted. Dr. Simpson's progress note is reviewed and consultation is also reviewed. The patient also had an x-ray of the foot which revealed no fracture. The patient also had an x-ray of an ankle, no fractures. Chest x-ray, no infiltrate. EKG is noted which reveals a QTc of 450. Ultrasound of the extremity is noted. Review of orders reveals the patient to be on vancomycin, Zyvox is on hold. Examination of the right foot and ankle has erythema. No break in the skin. Pulses are intact, no discharge. ASSESSMENT AND PLAN: A 61-year-old male with schizophrenia, hypertension, coronary artery disease who is admitted with compromised renal function, creatinine of 1.3 and erythema in the right ankle, on psychiatric medications, unable to use of Zyvox and not able to use vancomycin because of the creatinine of 1.3 with #1 is right ankle and right foot cellulitis, concerned about methicillin-resistant staphylococcus aureus with negative blood cultures. We will also order a MRSA screen and an HIV test. Further recommendations upon availability of initial results. Case discuss with Dr. Silva at length. Virgil Parnell MD
--- NOTE | 2017-01-15 16:18 | CP.PCM.CON ---
<Fly Heredia - Last Filed: 01/15/17 18:22> History of Present Illness - History of Present Illness History of Present Illness: Heme/onc consult note for Dr Barahona. 61 M with pmh of Hep c (tx with inteferon) , schizophrenia, HTN, and ETOH abuse , presents with RLE cellulites. Pt was previously seen by his bunch maker which prescribed him bactrim aproximalty 1 week ago. He states that he did not see any imprvment and he came to the ED. Pt states that it is painful when he walks with it but he is rafi to walk on it. Pain is 7/10 in severity. He denies any fevers or chills. We are consulted for thrombocytopenia found on labs. PMH: hep c, schizophrenia, HTN, and ETOH abuse, CAD? PSH: Tonsillectomy Med: refer to mar ALL: NKA SH: Pior etoh abuse but states he has quit. Denies any smoking or drug use FH: Denies Review of Systems - Review of Systems All systems: reviewed and no additional remarkable complaints except (HPI) Past Patient History - Past Social History Smoking Status: Former Smoker - CARDIAC Hx Cardiac Disorders: Yes Hx Hypertension: Yes - PULMONARY Hx Respiratory Disorders: Yes (TONSILLECTOMY) Other/Comment: H/O OF SMOKING CIGARETTES .QUIT PPD. - NEUROLOGICAL Hx Neurological Disorder: No - HEENT Hx HEENT Problems: No - RENAL Hx Chronic Kidney Disease: No - ENDOCRINE/METABOLIC Hx Endocrine Disorders: No - HEMATOLOGICAL/ONCOLOGICAL Hx Blood Disorders: No - INTEGUMENTARY Hx Dermatological Problems: Yes Other/Comment: [id number] CELLULITIS TO BILATERAL [place] MORE TO RIGHT.DENIES PAIN.ERYTHEMA.PINPOINT REDDENED RASH. - MUSCULOSKELETAL/RHEUMATOLOGICAL Hx Musculoskeletal Disorders: No Hx Falls: No - GASTROINTESTINAL Hx Gastrointestinal Disorders: No - GENITOURINARY/GYNECOLOGICAL Hx Genitourinary Disorders: No - PSYCHIATRIC Hx Psychophysiologic Disorder: Yes (mood disorder) Hx Schizophrenia: Yes Hx Substance Use: No Other/Comment: USED TO SMOKE AND DRINK ALCOHOL. - SURGICAL HISTORY Hx Surgeries: Yes (TONSILLECTOMY,LEFT PALM STITCHED-HAND WENT THROUGH A WINDOW PANE.) Meds Allergies/Adverse Reactions: Allergies Allergy/AdvReac Type Severity Reaction Status Date / Time No Known Allergies Allergy Verified 01/13/17 14:46 - Medications Medications: Current Medications Benztropine Mesylate (Cogentin) 0.5 mg PO BID [facility] Last Admin: 01/15/17 10:28 Dose: 0.5 mg Ceftaroline Fosamil 600 mg/ (Sodium Chloride) 100 mls @ 100 mls/hr IVPB Q12 [facility] PRN Reason: Protocol Stop: 01/24/17 10:01 Last Admin: 01/15/17 10:27 Dose: 100 mls/hr Losartan Potassium (Cozaar) 50 mg PO DAILY [facility] Last Admin: 01/15/17 10:28 Dose: 50 mg Ziprasidone (Geodon Cap) 40 mg PO BID [facility] Last Admin: 01/15/17 10:27 Dose: 40 mg Physical Exam - Constitutional Appears: No Acute Distress - Head Exam Head Exam: ATRAUMATIC, NORMOCEPHALIC - Eye Exam Eye Exam: EOMI, PERRL - ENT Exam ENT Exam: Mucous Membranes Moist - Neck Exam Neck exam: Positive for: Full Rom - Respiratory Exam Respiratory Exam: Clear to Auscultation Bilateral. absent: Rales, Rhonchi, Wheezes - Cardiovascular Exam Cardiovascular Exam: REGULAR RHYTHM, RRR, +S1, +S2 - GI/Abdominal Exam GI & Abdominal Exam: Normal Bowel Sounds, Soft. absent: Tenderness - Extremities Exam Extremities exam: Negative for: calf tenderness, pedal edema Additional comments: EXT: RLE erthema, slightly warm to touch - Neurological Exam Neurological exam: Alert, CN II-XII Intact, Oriented x3 - Psychiatric Exam Psychiatric exam: Normal Affect, Normal Mood - Skin Skin Exam: Dry, Intact, Normal Color, Warm Results - Vital Signs Recent Vital Signs: Last Vital Signs Temp 98.2 F 01/15/17 08:39 Pulse 82 01/15/17 08:39 Resp 20 01/15/17 08:39 BP 133/81 01/15/17 10:28 Pulse Ox 98 01/15/17 08:39 - Labs Result Diagrams: 01/15/17 06:30 01/15/17 06:30 Labs: Laboratory Results - last 24 hr 01/14/17 01/15/17 01/15/17 12:10 06:30 06:30 WBC 4.4 L RBC 4.27 Hgb 13.7 L Hct 40.0 L MCV 93.7 MCH 32.1 MCHC 34.3 RDW 14.2 Plt Count 70 L MPV 8.8 Sodium 135 Potassium 4.7 Chloride 102 Carbon Dioxide 24 Anion Gap 14 BUN 13 Creatinine 1.0 Est GFR ( Amer) > 60 Est GFR (Non-Af Amer) > 60 Random Glucose 90 Calcium 8.6 Total Bilirubin 1.4 H AST 31 ALT 25 Alkaline Phosphatase 46 Total Protein 7.1 Albumin 4.1 Globulin 3.1 Albumin/Globulin Ratio 1.3 Vitamin B12 195 L 25-OH Vitamin D Total 45.0 Folate 3.4 Assessment & Plan - Assessment and Plan (Free Text) Assessment: 61 M with pmh of Hep c (tx with inteferon) , schizophrenia, HTN, and ETOH abuse , presents with RLE cellulites found to be thrombocytopenic to 70. - Pt with reported hx of Hep C tx with inteferon in the past - Thrombocytopenia: will order anti plt ab, Abd US, Sulfur & colloid liver/ spleen nuclear scan - No indication of transfusion at this time - F/u cold agglutin and manual count - F/u ID recs - Abx - Cont ceftaroline - F/u podiatry recs - Psych consulted for recs Case and plan was reviewed and discussed in detail with Dr Barahnoa. <Sergio Barahona P - Last Filed: 01/15/17 22:27> Meds - Medications Medications: Current Medications Benztropine Mesylate (Cogentin) 0.5 mg PO BID [facility] Last Admin: 01/15/17 17:54 Dose: 0.5 mg Ceftaroline Fosamil 600 mg/ (Sodium Chloride) 100 mls @ 100 mls/hr IVPB Q12 [facility] PRN Reason: Protocol Stop: 01/24/17 10:01 Last Admin: 01/15/17 21:35 Dose: 100 mls/hr Losartan Potassium (Cozaar) 50 mg PO DAILY [facility] Last Admin: 01/15/17 10:28 Dose: 50 mg Multivitamins (Thera Tab) 1 tab PO 0800 [facility] Ziprasidone (Geodon Cap) 40 mg PO BID [facility] Last Admin: 01/15/17 17:54 Dose: 40 mg Results - Vital Signs Recent Vital Signs: Last Vital Signs Temp 97.8 F 01/15/17 16:00 Pulse 78 01/15/17 16:00 Resp 20 01/15/17 16:00 BP 129/80 01/15/17 16:00 Pulse Ox 98 01/15/17 16:00 - Labs Result Diagrams: 01/15/17 06:30 01/15/17 06:30 Labs: Laboratory Results - last 24 hr 01/15/17 01/15/17 01/15/17 06:30 06:30 16:28 WBC 4.4 L RBC 4.27 Hgb 13.7 L Hct 40.0 L MCV 93.7 MCH 32.1 MCHC 34.3 RDW 14.2 Plt Count 70 L Manual Plt Count MPV 8.8 Sodium 135 Potassium 4.7 Chloride 102 Carbon Dioxide 24 Anion Gap 14 BUN 13 Creatinine 1.0 Est GFR ( Amer) > 60 Est GFR (Non-Af Amer) > 60 Random Glucose 90 Calcium 8.6 Total Bilirubin 1.4 H AST 31 ALT 25 Alkaline Phosphatase 46 Total Protein 7.1 Albumin 4.1 Globulin 3.1 Albumin/Globulin Ratio 1.3 Vitamin B12 195 L Folate 3.4 Hepatitis A IgM Ab Negative Hep Bs Antigen Negative Hep B Core IgM Ab Negative 01/15/17 16:28 WBC RBC Hgb Hct MCV MCH MCHC RDW Plt Count Manual Plt Count 90 L MPV Sodium Potassium Chloride Carbon Dioxide Anion Gap BUN Creatinine Est GFR ( Amer) Est GFR (Non-Af Amer) Random Glucose Calcium Total Bilirubin AST ALT Alkaline Phosphatase Total Protein Albumin Globulin Albumin/Globulin Ratio Vitamin B12 Folate Hepatitis A IgM Ab Hep Bs Antigen Hep B Core IgM Ab Attending/Attestation - Attestation I have personally seen and examined this patient.: Yes I have fully participated in the care of the patient.: Yes I have reviewed all pertinent clinical information: Yes
--- NOTE | 2017-01-15 18:22 | US ---
HISTORY: Thrombocyopenia COMPARISON: Comparison is made to the previous CT of the abdomen and pelvis dated 04/07/2013 TECHNIQUE: Sonographic evaluation of the abdomen. FINDINGS: LIVER: Measures 15.9 cm. Heterogeneous and increased echogenicity of the liver parenchyma. No mass. No intrahepatic bile duct dilatation. GALLBLADDER: Unremarkable. No gallstones. COMMON BILE DUCT: Measures 5 mm. No stones. No dilatation. PANCREAS: Unremarkable as visualized. No mass. No ductal dilatation. RIGHT KIDNEY: Measures 10.3 x 5.1 x 6.3cm. Normal echogenicity. No calculus, mass, or hydronephrosis. LEFT KIDNEY: Measures 9.9 x 6.1 x 6.4cm. Normal echogenicity. No calculus, mass, or hydronephrosis. SPLEEN: The spleen is mildly enlarged measures 13.5 centimeter. AORTA: No aneurysmal dilatation. IVC: Unremarkable. OTHER FINDINGS: None. IMPRESSION: Heterogeneous echogenic liver suggestive of [id number] steatosis. Mild splenomegaly measures up to 13.5 centimeter.
--- NOTE | 2017-01-15 23:13 | PN ---
DATE: 01/13/2017 SUBJECTIVE: Patient is a 61-year-old white male currently being treated for an insect bite and cellulitis of his right lower extremity. Patient has a history of schizophrenia. He has been on chronic major tranquilizers for many years. He also has cirrhosis, it was treated many years ago. Alcohol abuse and hepatitis C. He also has impaired renal function. Reviewed consultation notes including infectious disease technology sales consultant. Patient's mental status reveals that he is awake, alert, coherent, lucid, oriented x3. No hallucinations, paranoia, or suicidal ideation. Patient's sister and [id number] are at bedside. Patient's mood is mildly euphoric. No other psychotic symptomatology. Affect slightly restricted. LABORATORY DATA: The patient's current laboratory data, white count is 4400, hemoglobin is 13.7, platelet count manually is 90,000. Patient's metabolic profile is fully over to normal range. He has a total bilirubin of 1.4, B12 is over 195, TSH minimally elevated at 5.06. Patient has had no growth in the urine or blood cultures after 48 hours. CURRENT MEDICATIONS: Include ceftaroline 600 mg IV q. 12 hours, Cogentin 0.5 mg b.i.d., Cozaar 50 mg daily, Geodon 40 mg b.i.d., therapeutic vitamins. Patient also has had 1 dose of Zyvox which is compatible with ziprasidone, his antipsychotic medication. PHYSICAL EXAMINATION VITAL SIGNS: Blood pressure 129/80, pulse 78, afebrile, respirations are 20 per minute. Patient reviewed orders. He has antibodies ordered and hepatitis panel. IMPRESSION: The patient has chronic schizophrenia, stable. He has cellulitis and insect bite in right lower extremity. He has probable cirrhosis secondary to hepatitis C. Patient has thrombocytopenia. PLAN: Patient can receive Zyvox if necessary; there is no inter-reaction with ziprasidone. We will continue Geodon and continue Cogentin, and continue to monitor mental status. William Suazo MD
[2017-01-16] MEDS ORDERED: Multivitamin Therapeutic Tab PO SCH (08:00)
[2017-01-16 08:03] VITALS: BP 135/83; PULSE 85; TEMP 99; O2SAT 97
--- NOTE | 2017-01-16 08:20 | CP.PCM.PN ---
<Donny Simpson - Last Filed: 01/16/17 08:17> Subjective - Date & Time of Evaluation Date of Evaluation: 01/16/17 Time of Evaluation: 08:17 - Subjective Subjective: 61 year old male patient was seen at bedside today concerning cellulitis to right lower extremity. AAO x 3. Swelling, redness continue to decrease. Patient does not have pain to right lower extremity. Patient denies of any other pedal complaints. Patient denies of any N/V/F/C today. Objective - Vital Signs/Intake and Output Vital Signs (last 24 hours): Temp Pulse Resp BP Pulse Ox 99 F 85 20 135/83 97 01/16/17 08:03 01/16/17 08:03 01/16/17 08:03 01/16/17 08:03 01/16/17 08:03 - Medications Medications: Current Medications Benztropine Mesylate (Cogentin) 0.5 mg PO BID [facility] Last Admin: 01/15/17 17:54 Dose: 0.5 mg Ceftaroline Fosamil 600 mg/ (Sodium Chloride) 100 mls @ 100 mls/hr IVPB Q12 [facility] PRN Reason: Protocol Stop: 01/24/17 10:01 Last Admin: 01/15/17 21:35 Dose: 100 mls/hr Losartan Potassium (Cozaar) 50 mg PO DAILY [facility] Last Admin: 01/15/17 10:28 Dose: 50 mg Multivitamins (Thera Tab) 1 tab PO 0800 [facility] Ziprasidone (Geodon Cap) 40 mg PO BID [facility] Last Admin: 01/15/17 17:54 Dose: 40 mg - Labs Labs: 01/15/17 06:30 01/15/17 06:30 PT 10.8 Seconds (9.9-11.8) 01/13/17 10:00 INR 1.00 (0.93-1.08) 01/13/17 10:00 APTT 29.0 Seconds (23.7-30.8) 01/13/17 10:00 - Constitutional Appears: Well, Non-toxic, No Acute Distress - Head Exam Head Exam: ATRAUMATIC - Extremities Exam Additional comments: Right lower extremity exam DERM: Erythema is noticeably decreased No open wound is noted. No maceration is noted. Moderate erythema is noted to right ankle and dorsum of right mid foot. No drainage is noted. No mal-odor noted. No point of puncture wound is noted to right lower extremity VASC: Swelling is decreased. Palpable DP and PT noted bilaterally 2/4. 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 NEURO: Gross sensation intact - Neurological Exam Neurological Exam: Alert, Awake, Oriented x3 - Psychiatric Exam Psychiatric exam: Normal Affect, Normal Mood - Skin Skin Exam: Normal Color, Warm Assessment and Plan - Assessment and Plan (Free Text) Assessment: 61 yo male patient presents with cellulitis to right lower extremity poss. secondary to spider bite Plan: Patient was seen, evaluated and treated with all questions and concerns addressed Discussed in detail with attending Dr. Tobar Labs and vitals reviewed; Continue IV Abx Podiatry will continue to follow in-house <Tan Tobar - Last Filed: 01/16/17 09:27> Objective - Vital Signs/Intake and Output Vital Signs (last 24 hours): Temp Pulse Resp BP Pulse Ox 99 F 85 20 135/83 97 01/16/17 08:03 01/16/17 08:03 01/16/17 08:03 01/16/17 08:03 01/16/17 08:03 - Medications Medications: Current Medications Benztropine Mesylate (Cogentin) 0.5 mg PO BID [facility] Last Admin: 01/15/17 17:54 Dose: 0.5 mg Ceftaroline Fosamil 600 mg/ (Sodium Chloride) 100 mls @ 100 mls/hr IVPB Q12 [facility] PRN Reason: Protocol Stop: 01/24/17 10:01 Last Admin: 01/15/17 21:35 Dose: 100 mls/hr Losartan Potassium (Cozaar) 50 mg PO DAILY [facility] Last Admin: 01/15/17 10:28 Dose: 50 mg Multivitamins (Thera Tab) 1 tab PO 0800 [facility] Last Admin: 01/16/17 09:00 Dose: 1 tab Ziprasidone (Geodon Cap) 40 mg PO BID [facility] Last Admin: 01/15/17 17:54 Dose: 40 mg - Labs Labs: 01/15/17 06:30 01/15/17 06:30 PT 10.8 Seconds (9.9-11.8) 01/13/17 10:00 INR 1.00 (0.93-1.08) 01/13/17 10:00 APTT 29.0 Seconds (23.7-30.8) 01/13/17 10:00 Attending/Attestation - Attestation I have personally seen and examined this patient.: Yes I have fully participated in the care of the patient.: Yes I have reviewed all pertinent clinical information, including history, physical exam and plan: Yes
[2017-01-16] MEDS: Ceftaroline 600 MG in Sodium Chloride 0.9% 100 ML IVPB SCH (10:34)
--- NOTE | 2017-01-17 00:13 | PN ---
DATE: 01/16/2017 SUBJECTIVE: The patient was seen earlier today in the room 378 and the patient is in bed; in no acute distress, nontoxic. Doing well. Was seen earlier today. PHYSICAL EXAMINATION VITAL SIGNS: On exam, the patient's temperature is 98, blood pressure is 130/80, respiratory rate of 20, heart rate of 78. HEENT: Unremarkable. NECK: Supple. LUNGS: Decreased breath sounds. HEART: Normal S1 and S2. ABDOMEN: Soft. LABORATORY DATA: Reveals a white count is 4.4, hemoglobin of 13, platelets of 70. Chemistry reveals a BUN of 13, creatinine of 1.0. Urinalysis is noted and the serology is noted, HIV is negative. Hepatitis profile is negative. Microbiology reveals a blood and urine cultures are negative and examination of the leg appears much improved. ASSESSMENT AND PLAN: This is a 61-year-old male with schizophrenia, hypertension, coronary artery disease, admitted with a compromised renal function and right ankle and right foot cellulitis, which is not greatly improved today, and the patient was to be discharged, will discharge on p.o. doxycycline as discussed with PMD covering doctor. Dr. Tobar's note is reviewed. We will follow the patient as an outpatient. Virgil Parnell MD
[2017-01-19 03:45] LABS: PLATELET AB INDIRECT (IGM) NEGATIVE (NEGATIVE)
--- NOTE | 2017-01-23 17:53 | NM ---
PROCEDURE: NUCLEAR LIVER-SPLEEN SCAN HISTORY: Thrombocytopenia - Sulfur and colloid nuclear scan COMPARISON: Distant prior abdomen pelvis CT examination 04/07/2013. TECHNIQUE: Following the intravenous administration of technetium 99 M sulfur colloid at a dose of 5.5 mCi, a nuclear liver spleen and scan was performed in various planes. FINDINGS: Homogeneous uptake is appreciated throughout the liver and spleen with no focal area hyper activity or hypo activity appreciated throughout. IMPRESSION: Normal liver-spleen scan.
--- NOTE | 2017-02-11 05:30 | DS ---
This is a 61-year-old male, who came to the hospital, was found to have a right foot cellulitis. The patient was started on IV antibiotics and had improvement of his symptoms. He had been on Bactrim as an outpatient. Please see the note dictated on 01/16/2017, for details. The patient was discharged. Luis Graves MD
== END 2017-01-16 11:50 | disposition home or self-care (01) | DRG 603 ==
LOC: ED 09:27 → ERH 12:23 → 3RSO 14:38
PROVIDERS: ADMIT Internal Medicine Nephrology; ATTEND Internal Medicine Nephrology
DX: L03.115 Cellulitis of right lower limb (principal); D69.6 Thrombocytopenia, unspecified; K74.60 Unspecified cirrhosis of liver; F20.9 Schizophrenia, unspecified; I10 Essential (primary) hypertension; I25.10 Atherosclerotic heart disease of native coronary artery without angina pectoris; F10.21 Alcohol dependence, in remission; Z86.19 Personal history of other infectious and parasitic diseases; Z87.891 Personal history of nicotine dependence; W57.XXXA Bitten or stung by nonvenomous insect and other nonvenomous arthropods, initial encounter

== ENCOUNTER 2017-04-25 09:56 | Emergency (ER) | payer MEDICARE, OTHER ==
[2017-04-25 09:57] VITALS: BMI 30.1
[2017-04-25 10:09] VITALS: BP 149/86; PULSE 81; RESP 19; TEMP 99.1; O2SAT 98
[2017-04-25] MEDS ORDERED: Morphine 2 mg/ml ISec IM STA (10:17)
--- NOTE | 2017-04-25 10:28 | ED PDOC ---
Arrival/HPI - General Chief Complaint: Upper Extremity Problem/Injury Time Seen by Provider: 04/25/17 10:09 Historian: Patient, Family - History of Present Illness Narrative History of Present Illness (Text): 04/25/17 10:24 62yr old male presents today with right shoulder pain s/p fall 3 days. pt states he tripped over a curb 3 days ago and fell landing on right shoulder. pt states since the fall he has been unable to fully move the right arm at the shoulder. pt did not take any medications for pain. denies hitting his head. denies headaches, dizziness, weakness. denies cp or sob. no abdominal pain. no n /v/c. no other complaints Time/Duration: Other (3 days) Symptom Onset: Sudden Symptom Course: Unchanged Quality: Aching, Tightness Severity Level: 7 Past Medical History - Provider Review Nursing Documentation Reviewed: Yes - Travel History Have you recently traveled outside [place] w/in the past 3 mons?: No - Infectious Disease Hx of Infectious Diseases: None - Cardiac Hx Cardiac Disorders: Yes Hx Hypertension: Yes - Pulmonary Hx Respiratory Disorders: Yes (TONSILLECTOMY) Other/Comment: H/O OF SMOKING CIGARETTES .QUIT PPD. - Neurological Hx Neurological Disorder: No - HEENT Hx HEENT Disorder: No - Renal Hx Renal Disorder: No - Endocrine/Metabolic Hx Endocrine Disorders: No - Hematological/Oncological Hx Blood Disorders: No - Integumentary Hx Dermatological Disorder: Yes Other/Comment: [id number] CELLULITIS TO BILATERAL LE MORE TO RIGHT.DENIES PAIN.ERYTHEMA.PINPOINT REDDENED RASH. - Musculoskeletal/Rheumatological Hx Musculoskeletal Disorders: No Hx Falls: No - Gastrointestinal Hx Gastrointestinal Disorders: No - Genitourinary/Gynecological Hx Genitourinary Disorders: No - Psychiatric Hx Psychophysiologic Disorder: Yes (mood disorder) Hx Schizophrenia: Yes Hx Substance Use: No Other/Comment: USED TO SMOKE AND DRINK ALCOHOL. - Anesthesia Hx Anesthesia: Yes Hx Anesthesia Reactions: No Hx Malignant Hyperthermia: No Family/Social History - Physician Review Nursing Documentation Reviewed: Yes Family/Social History: Unknown Family HX Smoking Status: Former Smoker Hx Alcohol Use: Yes (H/O.QUIT) Hx Substance Use: No Allergies/Home Meds Allergies/Adverse Reactions: Allergies No Known Allergies Allergy (Verified 04/25/17 10:09) Home Medications: Home Meds Medication Instructions Recorded Confirmed Benztropine [Cogentin] 0.5 mg PO BID 01/13/17 04/25/17 Losartan Potassium 50 mg PO DAILY 01/13/17 04/25/17 Ziprasidone [Geodon] 40 mg PO BID 01/13/17 04/25/17 Review of Systems - Review of Systems Constitutional: absent: Fatigue, Fevers Respiratory: absent: SOB, Cough Cardiovascular: absent: Chest Pain, Palpitations Gastrointestinal: absent: Abdominal Pain, Nausea, Vomiting Genitourinary Male: absent: Dysuria Musculoskeletal: Arthralgias. absent: Back Pain, Neck Pain Skin: absent: Rash, Pruritis Neurological: absent: Headache, Dizziness Psychiatric: absent: Anxiety, Depression, Suicidal Ideation Physical Exam Vital Signs Reviewed: Yes Vital Signs Temp Pulse Resp BP Pulse Ox 04/25/17 10:04 99.1 F 81 19 149/86 98 Temperature: Afebrile Blood Pressure: Normal Pulse: Regular Respiratory Rate: Normal Appearance: Positive for: Well-Appearing, Non-Toxic, Comfortable Pain Distress: None Mental Status: Positive for: Alert and Oriented X 3 - Systems Exam Head: Present: Atraumatic Pupils: Present: PERRL Extroacular Muscles: Present: EOMI Conjunctiva: Present: Normal Mouth: Present: Moist Mucous Membranes Neck: Present: Normal Range of Motion. No: MIDLINE TENDERNESS, Paraspinal Tenderness Respiratory/Chest: Present: Clear to Auscultation, Good Air Exchange. No: Respiratory Distress, Accessory Muscle Use, Tender to Palpation Cardiovascular: Present: Regular Rate and Rhythm, Normal S1, S2. No: Murmurs Abdomen: No: Tenderness, Distention, Rebound, Guarding Back: Present: Normal Inspection. No: Midline Tenderness, Paraspinal Tenderness Upper Extremity: Present: NORMAL PULSES, Tenderness (right shoulder; + ttp of anterior aspect of shoulder; + lateral deformity noted. limited rom of shoulder. ), Neurovascularly Intact, Capillary Refill < 2s, Deformity. No: Normal ROM, Swelling, Erythema, Temperature Abnormalties Neurological: Present: GCS=15, Speech Normal Skin: Present: Warm, Dry, Normal Color. No: Rashes Psychiatric: Present: Alert, Oriented x 3 Medical Decision Making ED Course and Treatment: 04/25/17 10:30 62yr old male with right shoulder pain and limited rom and deformity x 3 days s/ p fall. alert, oriented, no distress. stable vitals. morphine IM xray right shoulder; FINDINGS: BONES: Cortical discontinuity about the humeral head contour suspicious for fracture. The distal clavicle and underlying ribs appear intact. JOINTS: Anterior inferior dislocation of the humeral head. SOFT TISSUES: Soft tissue swelling. No evidence of radiopaque foreign body. IMPRESSION: Anterior inferior dislocation of the humeral head. Cortical discontinuity about the humeral head contour suspicious for fracture. Soft tissue swelling 04/25/17 11:[address] castle who will see patient in er. 04/25/17 11:23 dr. castle at bedside performing reduction. 04/25/17 12:06 post reduction xrays; dislocation reduced. fracture visualized. dr. castle aware of results. he will f/u with patient in the office pt placed into shoulder immobilizer pt reassessment; pt non toxic well appearing; no distress stable vitals. all results discussed in depth with patient and family. advised f/u with orthopedist within the next 2 days. percocet every 6 hours as needed for pain. return immediately if symptoms worsen, persist or if new symptoms develop. impression: shoulder dislocation, fracture, humerus Motrin every 6 hours as needed for pain Percocet 1 tablet every 6 hours as needed for moderate to severe pain: May cause drowsiness Follow-up with the orthopedist within the next 2 days Return immediately if symptoms worsen persist or if new concerning symptoms develop 04/25/17 17:03 - RAD Interpretation Radiology Orders: 04/25/17 10:17 SHOULDER RIGHT [RAD] Stat 04/25/17 11:35 SHOULDER RIGHT [RAD] Stat - Medication Orders Current Medication Orders: Discontinued Medications Morphine Sulfate (Morphine) 2 mg IM STAT STA Stop: 04/25/17 10:18 Last Admin: 04/25/17 10:23 Dose: 2 mg MAR Pain Assessment Document 04/25/17 10:23 [place] (Rec: 04/25/17 10:23 [place] [id number]) Pain Reassessment Is this a pain reassessment? No Sleep Is patient sleeping during reassessment? No Presence of Pain Presence of Pain Yes Pain Scale Used Pain Scale Used Numeric Location Left, Right or Bilateral Right Pain Location Body Site Arm IM Administration Charges Document 04/25/17 10:23 [place] (Rec: 04/25/17 10:23 [place] [id number]) Charges for Administration # of IM Administrations 1 Disposition/Present on Arrival - Present on Arrival Any Indicators Present on Arrival: No History of DVT/PE: No History of Uncontrolled Diabetes: No Urinary Catheter: No History of Decub. Ulcer: No History Surgical Site Infection Following: None - Disposition Have Diagnosis and Disposition been Completed?: Yes Diagnosis: Shoulder dislocation, Fracture, humerus Disposition: HOME/ ROUTINE Disposition Time: 12:09 Patient Plan: Discharge Condition: GOOD Discharge Instructions (ExitCare): Arm Fracture in Adults (ED), Shoulder Dislocation (ED) Additional Instructions: Motrin every 6 hours as needed for pain Percocet 1 tablet every 6 hours as needed for moderate to severe pain: May cause drowsiness Follow-up with the orthopedist within the next 2 days Return immediately if symptoms worsen persist or if new concerning symptoms develop Prescriptions: Ibuprofen [Motrin] 600 mg PO Q6H PRN #20 tab PRN Reason: pain/fever reduction oxyCODONE/Acetaminophen [Percocet 5/325 mg Tab] 1 tab PO Q6H PRN #8 tab PRN Reason: moderate to severe pain Referrals: Alexis Davis MD [Primary Care Provider] - Follow up with primary Kendell Castle DO [Staff Provider] - Follow up with primary Forms: scroll kit (Lithuanian)
--- NOTE | 2017-04-25 10:52 | RAD ---
PROCEDURE: Radiographs of the Right Shoulder HISTORY: fall 3 days ago. pain. deformity COMPARISON: Chest x-ray performed 01/13/17 FINDINGS: BONES: Cortical discontinuity about the humeral head contour suspicious for fracture. The distal clavicle and underlying ribs appear intact. JOINTS: Anterior inferior dislocation of the humeral head. SOFT TISSUES: Soft tissue swelling. No evidence of radiopaque foreign body. IMPRESSION: Anterior inferior dislocation of the humeral head. Cortical discontinuity about the humeral head contour suspicious for fracture. Soft tissue swelling.
--- NOTE | 2017-04-25 12:30 | RAD ---
PROCEDURE: Radiographs of the Right Shoulder, two views HISTORY: post reduction COMPARISON: Right shoulder radiographs performed earlier the same day. FINDINGS: BONES: Defect of the humeral head consistent with acute fracture fragment. The distal clavicle and underlying ribs appear intact. JOINTS: Humeral head appears located. SOFT TISSUES: Soft tissue swelling. No evidence of radiopaque foreign body. IMPRESSION: Defect of the humeral head consistent with acute fracture fragment. Soft tissue swelling.
--- NOTE | 2017-04-26 01:13 | CON ---
DATE: ORTHOPEDIC CONSULT AND PROCEDURE REPORT HISTORY OF PRESENT ILLNESS: A 62-year-old male, seen in the emergency room on the morning of 04/25/2017 for right shoulder pain. He was x-rayed by the ER and he had an anterior fracture dislocation at the right thumb and shoulder. We anesthetized the shoulder with Marcaine and Xylocaine and when it took, we did a close reduction, retraction and rotation, it popped back in. X-rays postreduction showed reduced anterior dislocation in good position. There is a small avulsion fracture at the greater tuberosity which does not need surgery at this time. there was intact neurovascular status to the hand and axillary nerve. Put him in a sling and I will follow him closely in the office. FINAL DIAGNOSIS: Fracture dislocation, right shoulder, successfully reduced with hematoma block and I will follow closely in the office for followup x-rays. He is going to stay on his sling at least for a month. Kendell Humphreys DO GABRIEL
--- NOTE | 2017-04-26 08:36 | CON ---
DATE: 04/25/2017 ORTHOPEDIC CONSULTATION LOCATION: Emergency Room, [facility]. HISTORY OF PRESENT ILLNESS: A 62-year-old male came in complaining of right shoulder pain, found out to have a fracture dislocation, right shoulder with a small avulsion fracture of the greater tuberosity and anterior dislocation, subcoracoid of the right shoulder; right hand-dominant. This occurred on 04/22/2017. Had good neurologic status, can move the fingers, no paresthesia around the deltoid. After we did a hematoma block with intraarticular injection of Marcaine and Xylocaine 20 mL, we gave the time to take it in and did gentle traction of the arm in a combination of external rotation and adduction and we felt an audible pop as indicating that the anterior dislocated shoulder was in place under the acromion. X-rays confirmed improved reduction on both AP and Y views. Patient was placed in a sling. I will follow him in the office in 10 days. FINAL DIAGNOSIS: Fracture dislocation of the right shoulder, anterior. PLAN: Instructions are to keep it in a string, keep the arm free from external rotation and abduction and if he has any trouble, he is to call me. Kendell Humphreys DO
== END 2017-04-25 12:11 | disposition home or self-care (01) ==
LOC: ED 09:56
DX: S42.291A Other displaced fracture of upper end of right humerus, initial encounter for closed fracture (principal); W01.0XXA Fall on same level from slipping, tripping and stumbling without subsequent striking against object, initial encounter; Y92.480 Sidewalk as the place of occurrence of the external cause
CPT/HCPCS: 23650; 73030; 96372; 99284; J2270

== ENCOUNTER 2017-10-06 09:35 | Inpatient (IN) | payer MEDICARE, OTHER ==
[2017-10-06] MEDS ORDERED: Piperacill/Tazo 4.5gm in NS 4.5 GM/100 ML BAG IVPB STA (11:05)
[2017-10-06] MEDS ORDERED: Vancomycin 1gm in NS 250ml 1 GM/250 ML BAG IVPB STA (11:05)
[2017-10-06] MEDS ORDERED: TDAP Vaccine 0.5 mL Syr IM ONE (11:08)
[2017-10-06] MEDS ORDERED: Sodium Chloride 0.9% 1,000 ML IV SCH ×2 (11:15→16:39)
[2017-10-06 11:25] LABS: VENOUS BLOOD GAS BASE EXCESS -1.7 mmol/L (0.0-2.0); VENOUS BLOOD GAS PO2 48 mm/Hg (30-55); VENOUS BLOOD PH 7.34 (7.32-7.43)
--- NOTE | 2017-10-06 11:27 | ED PDOC ---
Arrival/HPI - General Chief Complaint: Lower Extremity Problem/Injury Time Seen by Provider: 10/06/17 10:52 Historian: Patient - History of Present Illness Narrative History of Present Illness (Text): 10/06/17 11:15 62 year old male, whose past medical history includes schizophrenia, hypertension, and alcohol abuse, presents to the emergency department complaining of 3 weeks onset of left lower extremity skin changes consistent with cellulites. Patient states the initial wound is to the left hind foot that progressed up to the medial ankle. Patient was seen by her PCP Dr. Kidd who prescribed 2 antibiotics x 2weeks. His last dose was 6 days ago. Patient was reevaluated by Dr. Kidd yesterday and expressed concerned that patient's left lower leg wound/cellulites is progressing and instructed patient to go to the emergency department for evaluation. He states the foot and ankle would/ cellulites had improved, but the lower left leg wound/cellulites is moving upwards. Patient denies any fever/chills/sweats, chest pain/shortness of breath/ palpitations, abdominal pain/nausea/vomiting, numbness/tingling, urinary/bowel incontinence, fall/trauma/sick contact/travel. Patient arrived to the emergency department for further evaluation. PMD: Dr. Kdid Tetanus: Update Unknown pt lives at home with family Time/Duration: Other (3 weeks) Symptom Onset: Gradual Symptom Course: Worsening Activities at Onset: Light Context: Home Past Medical History - Provider Review Nursing Documentation Reviewed: Yes - Travel History Have you recently traveled outside [place] w/in the past 3 mons?: No - Past History Past History: No Previous - Infectious Disease Hx of Infectious Diseases: None - Tetanus Immunization Tetanus Immunization: Unknown - Cardiac Hx Cardiac Disorders: Yes Hx Hypertension: Yes - Pulmonary Hx Respiratory Disorders: Yes (TONSILLECTOMY) Other/Comment: H/O OF SMOKING CIGARETTES .QUIT PPD. - Neurological Hx Neurological Disorder: No - HEENT Hx HEENT Disorder: No - Renal Hx Renal Disorder: No - Endocrine/Metabolic Hx Endocrine Disorders: No - Hematological/Oncological Hx Blood Disorders: No - Integumentary Hx Dermatological Disorder: Yes Other/Comment: [id number] CELLULITIS TO BILATERAL LE MORE TO RIGHT.DENIES PAIN.ERYTHEMA.PINPOINT REDDENED RASH. - Musculoskeletal/Rheumatological Hx Musculoskeletal Disorders: No Hx Falls: No - Gastrointestinal Hx Gastrointestinal Disorders: No - Genitourinary/Gynecological Hx Genitourinary Disorders: No - Psychiatric Hx Psychophysiologic Disorder: Yes (mood disorder) Hx Schizophrenia: Yes Hx Substance Use: No Other/Comment: USED TO SMOKE AND DRINK ALCOHOL. - Anesthesia Hx Anesthesia: Yes Hx Anesthesia Reactions: No Hx Malignant Hyperthermia: No Family/Social History - Physician Review Nursing Documentation Reviewed: Yes Family/Social History: No Known Family HX Smoking Status: Former Smoker Hx Alcohol Use: Yes (H/O.QUIT) Hx Substance Use: No Hx Substance Use Treatment: No Allergies/Home Meds Allergies/Adverse Reactions: Allergies No Known Allergies Allergy (Verified 04/25/17 10:09) Home Medications: Home Meds Medication Instructions Recorded Confirmed Benztropine [Cogentin] 0.5 mg PO BID 01/13/17 10/06/17 Losartan Potassium 50 mg PO DAILY 01/13/17 10/06/17 Ziprasidone [Geodon Cap] 40 mg PO BID 01/13/17 10/06/17 Folic Acid [Folic Acid] 1 tab PO DAILY 10/06/17 10/06/17 Review of Systems - Physician Review All systems were reviewed & negative as marked: Yes - Review of Systems Constitutional: absent: Fevers, Night Sweats, Other (Chills) Eyes: Normal ENT: Normal Respiratory: absent: SOB Cardiovascular: absent: Chest Pain, Palpitations Gastrointestinal: absent: Abdominal Pain, Diarrhea, Nausea, Vomiting, Other ( urinary/bowel incontinence) Genitourinary Male: Normal Musculoskeletal: Normal Skin: Cellulitis (wound/cellulitis on the left lower extremity ) Neurological: Normal Endocrine: Normal Hemo/Lymphatic: Normal Psychiatric: Normal Physical Exam - Physical Exam Narrative Physical Exam (Text): General: alert/awake, GCS = 15, oriented x 3, resting in bed, mildly uncomfortable, cooperative, interactive; NAD Head: NC/AT EYE: PERRLA, EOMI, sclera anicteric, no nystagmus, no photophobia Facial: WNL Oral: Fair dentition, uvula/tongue are midline, no exudate/lesions, no drooling/ stridor, no dysphonia NECK: intact ROM, no midline tenderness, no nuchal rigidity, no meningeal signs ; no step off Chest: CTA b/l, no w/r/r; no tachypenia, no accessory muscle use noted Cardiac: +S1, +S2, no m/r/r Abdominal: +BS, soft/nd/nt, well nourished patient; no masses/rebound/guarding/ rigidity; no thakur's sign, no mcburney's point tenderness ext: intact ROM to upper ext, slightly decr ROM to b/l lower ext with left worse than right, strength 5/5 grossly intact in all limbs, neurovasc intact b/l ; + swelling noted b/l lower ext up to proximal lower tib/fib region ~ +1/5; NO maximo's sign b/l; noted posterior left knee as well as right knee large ecchymosis with extension into posterior b/l thigh region, irregularly shaped skin ecchymosis without any tenderness/fluctuance; also noted left lower tib/ fib from proximal ankle up to proximal tib/fib region with near circumferential skin erythema with out any skin blisters noted consistent with leg cellullitis; no NIKOSKY's sign, no bullae/pustules/ulcerations/open sores/wounds noted, no gross bleeding, no expressible discharge noted on exam SKIN: cap refill ~ 1 sec, no ulcerations, no petechiae; as described above left leg cellulitic wound NEURO: CNII-XII WNL, no facial asymmetries, no slurr speech, oriented x 3 NIH stroke scale ~ 0 Psych: normal insight, flat affect Vital Signs Reviewed: Yes Vital Signs Temp Pulse Resp BP Pulse Ox 10/06/17 15:37 80 18 121/76 97 10/06/17 12:17 85 18 119/82 100 10/06/17 10:00 98.8 F 94 H 18 124/67 100 Temperature: Afebrile Blood Pressure: Normal Pulse: Regular Respiratory Rate: Normal Appearance: Positive for: Well-Appearing, Non-Toxic Pain Distress: None Mental Status: Positive for: Alert and Oriented X 3 Medical Decision Making ED Course and Treatment: 10/06/17 11:15 Impression: left leg cellulitis, failed outpt txt 62 year old male presents complaining of 3 weeks onset of lower extremity skin changes consistent with cellulites. Patient state lower left leg wound/ cellulites is moving upward I have considered all differential diagnoses regarding patients chief medical complaints/clinical findings which include but are not limited to: left leg cellulitis, failed outpt txt Plan: -- Labs -- EKG -- VBG -- Tibia Fibula Bilat X-ray -- Bootrsix Vaccine Inj, IC Fluids, Vancomycin, Zosyn 4.5 gm -- Blood Culture -- Procalcitonin Serum -- Urinalysis -- Duplex Lower Extrem Vein Bilat US -- Reassess and disposition Progress Notes: 1230 pt is currently doing well pt denied any pain pt denied any distress vital signs are stable paging Dr kidd 1:30pm - Dr Kidd had not return call, will continue to seek her consult 2:15pm - Dr Kidd replied, states she spoke to Dr Dale and pt is to be admitted to Dr Graves and consult Dr Ricks (ID) 2:25pm - I spoke to Dr Graves, made aware, agrees with admission pt is currently comfortable pt is not in any distress, resting in bed 10/06/17 15:30 pt is made aware of his medical results pt agrees with admission Re-evaluation Time: 12:30 Reassessment Condition: Unchanged - Lab Interpretations Lab Results: 10/06/17 11:00 10/06/17 11:00 Lab Results 10/06/17 11:48: Urine Color Dark yellow, Urine Appearance Clear, Urine pH 5.5, Ur Specific [place] 1.025, Urine Protein 30 H, Urine Glucose (UA) Negative, Urine Ketones Negative, Urine Blood Negative, Urine Nitrate Positive H, Urine Bilirubin Small H, Urine Urobilinogen 1.0 H, Ur Leukocyte Esterase Negative, Urine RBC 0 - 2, Urine WBC 1 - 3, Ur Epithelial Cells None, Calcium Oxalate Crystal Small, Amorphous Sediment Few, Urine Bacteria Many, Hyaline Casts 0 - 2 , Coarse Granular Casts Trace H 10/06/17 11:41: PT 14.2 H, INR 1.23 H, APTT 26.9 10/06/17 11:00: Blood Type A POSITIVE, Antibody Screen Negative, BBK History Checked No verified bt 10/06/17 11:00: Sodium 141, Chloride 104, Potassium 3.8, Carbon Dioxide 21, Anion Gap 20, BUN 15, Creatinine 0.9, Est GFR ( Amer) > 60, Est GFR (Non- Af Amer) > 60, Random Glucose 101, Calcium 8.9, Phosphorus 2.8, Magnesium 2.3 H , Total Bilirubin 2.6 H, AST 23, ALT 13, Alkaline Phosphatase 43, Total Protein 7.4, Albumin 4.1, Globulin 3.2, Albumin/Globulin Ratio 1.3 10/06/17 11:00: pO2 48, VBG pH 7.34, VBG pCO2 45.0, VBG HCO3 24.3, VBG Total CO2 25.7, VBG O2 Sat (Calc) 83.1 H, VBG Base Excess -1.7 L, VBG Potassium 3.8, Sodium 136.0, Chloride 104.0, Glucose 102, Lactate 3.5 H, FiO2 21.0, Venous Blood Potassium 3.8 10/06/17 11:00: WBC 7.0 D, RBC 3.38 L, Hgb 10.6 L D, Hct 31.5 L, MCV 93.2, MCH 31.4, MCHC 33.7, RDW 14.1, Plt Count 143, MPV 9.2, Gran % 81.4 H, Lymph % (Auto ) 11.5 L, Will % (Auto) 6.0, Eos % (Auto) 1.0 L, Baso % (Auto) 0.1, Gran # 5.73 , Lymph # (Auto) 0.8 L, Will # (Auto) 0.4, Eos # (Auto) 0.1, Baso # (Auto) 0.01 I have reviewed the lab results: Yes Interpretation: Abnormal lab values (elevated Lactic; abnl U/A) - RAD Interpretation Narrative RAD Interpretations (Text): PROCEDURE: Radiographs of the bilateral Tibiae and Fibulae. Dictator : Sai Christine MD Report Date : 10/06/2017 12:39:53 IMPRESSION: No evidence of acute displaced fracture nor dislocation. No evidence of cortical destructive changes to suggest osteomyelitis however the possibility of early osteomyelitis not excluded. Soft tissue swelling and infiltration subcutaneous tissues left lower extremity likely representing cellulitis. . Consider followup MRI if further evaluation is required. Degenerative osteoarthritis as above. ---- U/S B/L leg: NO DVT b/l Radiology Orders: 10/06/17 11:09 TIBIA FIBULA BI [RAD] Stat 10/06/17 11:10 DUPLEX LOWER EXTRM VEIN BILAT [US] [place] Tax Auditor: Radiologist - EKG Interpretation EKG Interpretation (Text): 10/06/17 15:49 NSR at 75 bpm, normal axis, no ectopy, qs in leads III, inverted T in leads III , V1, non-specific st changes, diffuse low voltage inf leads, ABNL EKG; unchanged compare with old ekg 12/2016 Interpreted by ED Physician: Yes Type: 12 lead EKG Comparison: Similar to previous EKG - Medication Orders Current Medication Orders: Sodium Chloride (Sodium Chloride 0.9%) 1,000 mls @ 150 mls/hr IV .[id number] BHANU Last Admin: 10/06/17 12:58 Dose: 150 mls/hr eMAR Start Stop Document 10/06/17 12:58 GMD (Rec: 10/06/17 12:58 GMD [id number]) Intravenous Solution Start Date 10/06/17 Start Time 12:58 Discontinued Medications Vancomycin HCl (Vancomycin 1gm) 1 gm in 250 mls @ 167 mls/hr IVPB STAT STA PRN Reason: Protocol Stop: 10/06/17 12:34 Last Admin: 10/06/17 15:26 Dose: 167 mls/hr eMAR Start Stop Document 10/06/17 15:26 GMD (Rec: 10/06/17 15:26 GMD [id number]) Intravenous Solution Start Date 10/06/17 Start Time 15:26 End Date 10/06/17 End time 16:56 Total Infusion Time 90 Piperacillin Sod/Tazobactam Sod (Zosyn 4.5 Gm In Ns 100ml) 4.5 gm in 100 mls @ 200 mls/hr IVPB STAT STA PRN Reason: Protocol Stop: 10/06/17 11:34 Last Admin: 10/06/17 12:52 Dose: 200 mls/hr eMAR Start Stop Document 10/06/17 12:52 GMD (Rec: 10/06/17 12:53 GMD [id number]) Intravenous Solution Start Date 05/16/18 Start Time 12:52 End Date 10/06/17 End time 13:22 Total Infusion Time 30 Tetanus/Reduced Diphtheria/Acell Pertussis (Boostrix Vaccine Inj) 0.5 ml IM .ONCE ONE Stop: 10/06/17 11:09 Last Admin: 10/06/17 12:52 Dose: 0.5 ml Immunization Registry Document 10/06/17 12:52 GMD (Rec: 10/06/17 12:52 GMD [id number]) Immunization Registry Consent Date 04/25/17 - Scribe Statement The provider has reviewed the documentation as recorded by the Dioniibe Farheen Ibarra Provider Scribe Attestation: All medical record entries made by the Yahaira were at my direction and personally dictated by me. I have reviewed the chart and agree that the record accurately reflects my personal performance of the history, physical exam, medical decision making, and the department course for this patient. I have also personally directed, reviewed, and agree with the discharge instructions and disposition. Disposition/Present on Arrival - Present on Arrival Any Indicators Present on Arrival: No History of DVT/PE: No History of Uncontrolled Diabetes: No Urinary Catheter: No History of Decub. Ulcer: No History Surgical Site Infection Following: None - Disposition Have Diagnosis and Disposition been Completed?: Yes Diagnosis: Left leg cellulitis, Failure of outpatient treatment, Superficial bruising of lower leg Disposition: HOSPITALIZED Disposition Time: 14:30 Patient Plan: Admission Patient Problems: Current Active Problems Problem Status Onset Failure of outpatient treatment Acute Left leg cellulitis Acute Condition: STABLE
[2017-10-06 11:30] LABS: BASO # 0.01 K/mm3 (0.0-2.0); BASO % 0.1 % (0.0-3.0); EOS # 0.1 (0.0-0.7); GRAN # 5.73 (1.4-6.5); GRAN % 81.4 % (50.0-68.0); HEMOGLOBIN 10.6 g/dL (14.0-18.0); LYMPH # 0.8 (1.2-3.4); LYMPH % 11.5 % (22.0-35.0); MEAN CELL VOLUME 93.2 fl (80.0-105.0); MEAN CORPUSCULAR HEMOGLOBIN 31.4 pg (25.0-35.0); MEAN CORPUSCULAR HGB CONC 33.7 g/dl (31.0-37.0); MEAN PLATELET VOLUME 9.2 fl (7.0-11.0); MONO # 0.4 (0.1-0.6); RBC 3.38 10^6/uL (3.5-6.1); RED CELL DISTRIBUTION WIDTH 14.1 % (11.5-14.5)
[2017-10-06 11:38] LABS: ALB/GLOB RATIO 1.3 (1.1-1.8); ALBUMIN 4.1 g/dL (3.0-4.8); ALT/SGPT 13 U/L (7-56); AST/SGOT 23 U/L (17-59); BLOOD UREA NITROGEN 15 mg/dL (7-21); CALCIUM 8.9 mg/dL (8.4-10.5); GFR AFRICAN-AMERICAN > 60; GFR NON-AFRICAN AMERICAN > 60
[2017-10-06 12:06] LABS: PH,URINE 5.5 (4.7-8.0); URINE BILIRUBIN SMALL (NEGATIVE); URINE BLOOD NEGATIVE (NEGATIVE); URINE GLUCOSE (UA) NEGATIVE (NEGATIVE); URINE LEUKOCYTE ESTERASE NEGATIVE Leu/uL (NEGATIVE); URINE PROTEIN 30 mg/dL (<30 mg/dL)
[2017-10-06 12:15] LABS: URINE APPEARANCE CLEAR (CLEAR); URINE COLOR DARK YELLOW (YELLOW)
[2017-10-06 12:21] LABS: INR 1.23 (0.93-1.08); PARTIAL THROMBOPLASTIN TIME 26.9 Seconds (25.1-36.5); PROTHROMBIN TIME 14.2 SECONDS (9.4-12.5)
[2017-10-06 12:27] LABS: URINE CALCIUM OXALATE CRYSTALS SMALL /hpf; URINE HYALINE CAST 0 - 2 /hpf; URINE RBC 0 - 2 /hpf (0-2)
[2017-10-06 12:28] LABS: URINE AMORPHOUS SEDIMENT FEW; URINE BACTERIA MANY (NEG); URINE COARSE GRANULAR CAST TRACE /hpf (0-2)
--- NOTE | 2017-10-06 12:41 | RAD ---
PROCEDURE: Radiographs of the bilateral Tibiae and Fibulae. HISTORY: r rule out osteomyelitis. COMPARISON: None available. TECHNIQUE: Frontal and lateral views obtained. FINDINGS: BONES: RIGHT TIBIA: No evidence of acute displaced fracture nor dislocation. The osseous structures appear intact. No obvious cortical destructive changes. Degenerative osteoarthritis right knee including the proximal tibiofibular articulation. Mild degenerative osteoarthritis right tibiotalar articulation with slight osteophyte formation arising from the inferior tip of the medial malleolus. Plantar and posterior calcaneal enthesophyte formation noted as well. LEFT TIBIA: No evidence of acute displaced fracture nor dislocation. Osseous structures appear grossly intact. No obvious cortical destructive changes. Degenerative osteoarthritis left knee as well as and proximal left tibia fibular articulation. Degenerative changes left tibia and talar articulation with osteophyte formation arising from the inferior tip medial malleolus. JOINT SPACES: As above. SOFT TISSUES: RIGHT TIBIA: Normal. . No evidence of subcutaneous emphysema LEFT TIBIA: Mild infiltration changes within the subcutaneous tissues right lower extremity nonspecific. Findings could represent cellulitis. Clinical correlation recommended. . No evidence of subcutaneous emphysema OTHER FINDINGS: None. IMPRESSION: No evidence of acute displaced fracture nor dislocation. No evidence of cortical destructive changes to suggest osteomyelitis however the possibility of early osteomyelitis not excluded. Soft tissue swelling and infiltration subcutaneous tissues left lower extremity likely representing cellulitis. . Consider followup MRI if further evaluation is required. Degenerative osteoarthritis as above.
[2017-10-06 15:04] LABS: VENOUS BLOOD GAS BASE EXCESS 0.5 mmol/L (0.0-2.0); VENOUS BLOOD GAS PO2 49 mm/Hg (30-55); VENOUS BLOOD PH 7.38 (7.32-7.43)
--- NOTE | 2017-10-06 20:01 | US ---
HISTORY: Leg pain and swelling. Evaluate for DVT PHYSICIAN(S): Clement Davis MD. TECHNIQUE: Duplex sonography and color-flow Doppler with graded compression were used to evaluate the deep venous systems of both lower extremities. The left tibial veins are not well seen FINDINGS: The visualized deep venous systems of both lower extremities are sonographically normal and compressible. Normal wave forms and augmentation are seen. There is no sonographic evidence for deep venous thrombosis in the visualized segments of both lower extremities. IMPRESSION: No sonographic evidence for deep venous thrombosis in the visualized segments of both lower extremities.
--- NOTE | 2017-10-06 21:43 | CARD ---
APPROVED REPORT EKG Measurement Heart [id number] <Conclusion> Normal sinus rhythm Nonspecific ST and T wave abnormality Abnormal ECG
[2017-10-06] MEDS ORDERED: Pneumococcal 23-Valent Vaccine IM ONE (21:49)
[2017-10-06 21:50] VITALS: BMI 29.4
--- NOTE | 2017-10-07 07:51 | CP.PCM.HP ---
Addendum entered and electronically signed by Juju Raza DO 10/07/17 10: 17: All imaging reviewed. No evidence of DVT at this time. Original Note: <Juju Raza - Last Filed: 10/07/17 09:55> History of Present Illness - History of Present Illness History of Present Illness: H&P for Saranya Rucker PGY2 This is a 62yo male with past medical history of HTN and schizophrenia who came to the ED for L leg redness and swelling x 1 month. Patient reports he was given antibiotics by Dr. Kidd for 2 weeks. He says the swelling and redness improved since then, but is still present. Patient states his redness and swelling included his L foot and ankle, but has now improved. His leg was evaluated by Dr. Kidd who instructed him to go to the ED. He denies any pain, increased swelling, drainage from the leg, fever/chills, chest pain, shortness of breath, nausea/vomiting/diarrhea or constipation. Patient was on Doxycyline and Augmentin for 2 weeks according to [facility] pharmacy. Patient denies trouble ambulating. Past medical history: HTN, schizophrenia Past surgical history: surgery of L thumb as teenager Home meds: As per MAR Allergies: NKDA Social history: Quit EtOH use 17yrs ago. Former tobacco user (quit 12yrs ago). Denies drug use. Lives in multi-family home. Sister lives upstairs. Independent in all ADLs Family history: Non-contributory Present on Admission - Present on Admission Any Indicators Present on Admission: No Review of Systems - Review of Systems All systems: reviewed and no additional remarkable complaints except Review of Systems: 12 point ROS reviewed as per HPI and is otherwise negative. Past Patient History - Infectious Disease Hx of Infectious Diseases: None - Tetanus Immunizations Tetanus Immunization: Unknown - Past Social History Smoking Status: Former Smoker - CARDIAC Hx Cardiac Disorders: Yes Hx Hypertension: Yes - PULMONARY Hx Respiratory Disorders: Yes (TONSILLECTOMY) Other/Comment: H/O OF SMOKING CIGARETTES .QUIT PPD. - NEUROLOGICAL Hx Neurological Disorder: No - HEENT Hx HEENT Problems: Yes (TONSILLECTOMY) - RENAL Hx Chronic Kidney Disease: No - ENDOCRINE/METABOLIC Hx Endocrine Disorders: No - HEMATOLOGICAL/ONCOLOGICAL Hx Blood Disorders: No - INTEGUMENTARY Hx Dermatological Problems: Yes Other/Comment: [id number] CELLULITIS TO BILATERAL LE MORE TO RIGHT.DENIES PAIN.ERYTHEMA.PINPOINT REDDENED RASH. 10-06-17 BILATERAL LEG CELLULITIS.BILATERAL LEG EDEMA AND ECCHYMOSIS EXTENDS TO THIGH. RIGHT LEG REDNESS EXTENDS UPTWARD TO THIGH WITH A DEMARCATION LINE PLACED. LEFT LEG , GABRIEL BONE WITH BLUISH GREENISH HUE,BACK OF KNEE HAS A LARGE ECCHYMOSIS EXTENDS TO THIGH. - MUSCULOSKELETAL/RHEUMATOLOGICAL Hx Musculoskeletal Disorders: Yes (SHOULDER DISLOCATION. RIGHT) Hx Falls: Yes - GASTROINTESTINAL Hx Gastrointestinal Disorders: No - GENITOURINARY/GYNECOLOGICAL Hx Genitourinary Disorders: No - PSYCHIATRIC Hx Psychophysiologic Disorder: Yes (mood disorder) Hx Schizophrenia: Yes Hx Substance Use: No Other/Comment: USED TO SMOKE AND DRINK ALCOHOL. - SURGICAL HISTORY Hx Surgeries: Yes (TONSILLECTOMY,LEFT PALM STITCHED-HAND WENT THROUGH A WINDOW PANE.) - ANESTHESIA Hx Anesthesia: Yes Hx Anesthesia Reactions: No Hx Malignant Hyperthermia: No Meds Allergies/Adverse Reactions: Allergies Allergy/AdvReac Type Severity Reaction Status Date / Time No Known Allergies Allergy Verified 10/06/17 17:09 Physical Exam - Constitutional Appears: In Acute Distress - Head Exam Head Exam: ATRAUMATIC, NORMAL INSPECTION, NORMOCEPHALIC - Eye Exam Eye Exam: EOMI, Normal appearance Pupil Exam: NORMAL ACCOMODATION - ENT Exam ENT Exam: Mucous Membranes Moist - Neck Exam Neck exam: Positive for: Normal Inspection - Respiratory Exam Respiratory Exam: Clear to Auscultation Bilateral, NORMAL BREATHING PATTERN. absent: Rales, Rhonchi - Cardiovascular Exam Cardiovascular Exam: REGULAR RHYTHM, +S1, +S2. absent: Gallop, Rubs, Systolic Murmur - GI/Abdominal Exam GI & Abdominal Exam: Normal Bowel Sounds, Soft. absent: Mass, Rebound, Tenderness - Extremities Exam Additional comments: L lower extremity has erythema and swelling from above ankle to mid calf. No open wounds or drainage noted. - Neurological Exam Neurological exam: Alert, CN II-XII Intact, Oriented x3 - Psychiatric Exam Psychiatric exam: Normal Affect, Normal Mood - Skin Skin Exam: Dry, Intact, Warm Results - Vital Signs Recent Vital Signs: Last Vital Signs Temp 98.8 F 10/06/17 21:22 Pulse 80 10/06/17 21:22 Resp 18 10/06/17 21:22 BP 121/76 10/06/17 21:22 Pulse Ox 97 10/06/17 15:37 - Labs Result Diagrams: 10/06/17 11:00 10/06/17 11:00 Labs: Laboratory Results - last 24 hr 10/06/17 14:46 pO2 49 VBG pH 7.38 VBG pCO2 44.0 VBG HCO3 26.0 VBG Total CO2 27.4 VBG O2 Sat (Calc) 86.1 H VBG Base Excess 0.5 VBG Potassium 4.0 Sodium 136.0 Chloride 105.0 Glucose 96 Lactate 1.1 FiO2 21.0 Venous Blood Potassium 4.0 Assessment & Plan - Assessment and Plan (Free Text) Assessment: This is a 62yo male with past medical history of HTN and schizophrenia who is admitted for: 1. L Leg cellulitis (failed outpatient treatment) 2. HTN 3. schizophrenia 4. Anemia (most likely anemia of chronic disease) Plan: Patient is on Teflaro for L leg cellulitis. He has no evidence of leukocytosis or fever at this time. ID is on consult. Will continue home medications. Cozaar for HTN as well as Cogentin and Geodon for his schizophrenia. Patient will continue to take folic acid and follow up with Dr. Kidd as outpatient for his anemia. He has no overt signs of bleeding at this time and is hemodynamically stable. Will await PT eval for discharge planning. Case seen, discussed and reviewed with Dr. Graves. Saranya Raza PGY2 - Date & Time Date: 10/07/17 Time: 09:55 <Luis Graves - Last Filed: 10/07/17 21:13> Results - Vital Signs Recent Vital Signs: Last Vital Signs Temp 98 F 10/07/17 06:00 Pulse 70 10/07/17 10:28 Resp 20 10/07/17 06:00 BP 148/90 10/07/17 10:28 Pulse Ox 98 10/07/17 06:00 - Labs Result Diagrams: 10/06/17 11:00 10/06/17 11:00 Labs: Laboratory Results - last 24 hr 10/07/17 08:05 Blood Type Confirm A POSITIVE Assessment & Plan - Assessment and Plan (Free Text) Plan: Pt seen and examined. Agree with above note of biomedical engineering technologist. Labs and medications have been reviewed. Pt with cellulitis of L leg. Pt started on IV Abx. He has hx of ITP. He failed out-pt treatment for the cellulitis.
[2017-10-07] MEDS: Ceftaroline 600 MG in Sodium Chloride 0.9% 100 ML IVPB SCH ×2 (10:27→22:14)
--- NOTE | 2017-10-07 10:30 | CON ---
DATE: 10/07/2017 REASON FOR CONSULTATION: Left lower extremity cellulitis, ITP. HISTORY OF PRESENT ILLNESS: Mr. Huerta is a 62-year-old male seen in the office. He developed left lower extremity cellulitis two weeks ago, he was advised admission in the hospital, but he refused. He was given oral antibiotics, Augmentin and doxycycline. Cellulitis in left lower extremity improved, but on completion of antibiotic, he had again flare-up of cellulitis on the left lower extremity, increased erythema and swelling. He was still able to ambulate. He was advised admission to the hospital for IV antibiotics and further evaluation. Blood counts have been stable. In the past month, platelet counts have been more than 100,000. Lowest platelet count was 60,000. PAST MEDICAL HISTORY: ITP, hypertension, schizophrenia, recurrent cellulitis of left lower extremity. PAST SURGICAL HISTORY: Tonsillectomy. REVIEW OF SYSTEMS: As per HPI. Rest of 12-point review of systems reviewed negative. PERSONAL HISTORY: Ex-smoker. History alcohol abuse. ALLERGIES: NO KNOWN DRUG ALLERGIES. HOME MEDICATIONS: Cogentin, losartan, Geodon, folic acid. PHYSICAL EXAMINATION: GENERAL: Comfortable in bed, in no acute distress. VITAL SIGNS: Temperature 98.8, heart rate 80 per minute, respiratory rate 15 per minute, blood pressure 120/70, pulse ox is 97% on room air. HEENT: No pallor. NECK: No lymphadenopathy. CHEST: Air entry present and equal bilateral. No added sound. CARDIOVASCULAR EXAM: S1, S2 normal. No murmur. No gallop. ABDOMEN: Soft, nontender. No hepatosplenomegaly. EXTREMITIES: Left extremity erythema present, swelling present. No open wounds. FISCAL OFFICER: Alert, oriented x3. No focal sensorimotor deficits. SPINE: Nontender. LABORATORY DATA: White count 7, hemoglobin 10.6, hematocrit 31.5, platelet 143. Sodium 141, potassium 3.8, BUN 15, creatinine 0.9, glucose 101. Doppler, left lower extremity, no DVT. ASSESSMENT AND PLAN: 1. Left lower extremity cellulitis. Failed oral antibiotics. Completed 2 weeks of Augmentin and doxycycline. Infectious Disease consultation, Dr. Parnell appreciated. Currently, on ceftaroline. Blood count stable. Platelet count is 143. We will continue to monitor closely the blood counts. 2. Mild anemia, hemoglobin 10.6. We will do anemia workup, iron studies. 3. Renal function stable. Creatinine 0.9. Coags mildly elevated. INR 1.3. 4. Bilirubin elevated to 2.6. We will repeat the LFTs. Thank you, Dr. Graves for allowing us to participate in Mr. Huerta's care. We will continue to follow. Jojo Kidd MD G[facility]EL
--- NOTE | 2017-10-07 17:00 | US ---
PROCEDURE: Lower extremity KRISHNA exam HISTORY: Peripheral vascular disease with pain and claudication. Previous smoker PHYSICIAN(S): Clement Davis MD. FINDINGS: The resting KRISHNA's are normal: right, 1.29and left, 1.17. The brachial systolic pressures are symmetric. The high thigh pressures and waveforms are relatively normal. The calf PVR waveforms augment normally. No significant gradients are noted across the thighs. The ankle and metatarsal waveforms are relatively normal and symmetric. No significant pressure gradients are noted across the lower legs. IMPRESSION: 1. Normal KRISHNA and PVR examination at rest.
--- NOTE | 2017-10-07 20:49 | MRI ---
EXAM: MR Left Lower Extremity Without Intravenous Contrast, Foot EXAM DATE/TIME: 10/07/2017 2:53 PM CLINICAL HISTORY: The patient age is 62 years old and is male; Pain; Foot; Left; Additional info: R/O osteo Facility exam id and description: Mri footwoconl foot w/o contrast left TECHNIQUE: Multiplanar magnetic resonance images of the left foot without intravenous contrast. COMPARISON: No relevant prior studies available. FINDINGS: Limitations: A partial failure of fat saturation limits evaluation of the toes on the coronal sequence. LIGAMENTS: Medial collateral: Limited by a failure of fat saturation. Lateral collateral: Limited by a failure of fat saturation. Lisfranc: No visualized acute tear. TENDONS: Flexor: There is increased fluid surrounding the flexor hallucis tendon at the plantar aspect of the foot, consistent with tenosynovitis. Extensor: No visualized acute tear. Peroneal: No visualized acute tear of the distal peroneus longus tendon. This tendon is incompletely visualized. Muscles: Muscle atrophy is visualized. Fluid: No significant joint effusion. Bones/joints: There is no definitive acute marrow edema involving the visualized foot to suggest osteomyelitis. There is a small cyst within the base of the proximal first phalanx, likely secondary to arthropathy. No dislocation. Soft tissues: There is mild soft tissue swelling of the foot, suggestive of cellulitis in the appropriate clinical setting. Other findings: This study concentrates on the mid to forefoot. IMPRESSION: 1. There is no definitive acute marrow edema involving the visualized foot to suggest osteomyelitis. 2. There is tenosynovitis of the flexor hallucis tendon. 3. There is mild soft tissue swelling of the foot, suggestive of cellulitis in the appropriate clinical setting. 4. Additional findings described above.
--- NOTE | 2017-10-08 01:23 | CON ---
DATE: 10/07/2017 LOCATION: The patient was seen in room 573, bed 2. CHIEF COMPLAINT: Left lower extremity erythema times several days. HISTORY OF PRESENT ILLNESS: This is a 62-year-old male with history of schizophrenia, hypertension, coronary artery disease, history of right foot cellulitis, history of renal disease, alcohol abuse, history of tonsillectomy, has no known allergies who was admitted now with diagnosis of left leg cellulitis and Infectious Diseases consultation requested for antibiotics. The patient states that he has had low-grade fevers with no chills. No chest pain, shortness of breath or cough. No hemoptysis, abdominal pain or diarrhea. REVIEW OF SYSTEMS: Twelve-point review of systems was performed. PAST MEDICAL HISTORY: Significant for schizophrenia, hypertension, coronary artery disease, right foot cellulitis, renal disease, and alcohol use. PAST SURGICAL HISTORY: Significant for tonsillectomy. ALLERGIES: THE PATIENT HAS NO KNOWN ALLERGIES. MEDICATIONS AT HOME: Include folic acid, lorazepam, Cogentin, and Geodon. PHYSICAL EXAMINATION: GENERAL: The patient is in bed, appears comfortable, somewhat disheveled. VITAL SIGNS: Temperature of 98, blood pressure is 107/50, respiratory rate of 20, heart rate of 80, it was up as far as 94. The patient's BMI is 29. HEENT: Unremarkable. NECK: Supple. LUNGS: Decreased breath sounds. HEART: Normal S1, S2. ABDOMEN: Soft, nontender. No organomegaly. No rebound. No guarding. No masses. EXTREMITIES: Examination of the left leg showed significant erythema and edema, warm to touch. No discharge. Pulses are intact. LABORATORY EXAMINATION: Reveals a white count of 7, hemoglobin of 10, platelets of 143. Chemistries reveals the patient has a BUN of 15, creatinine of 0.9, procalcitonin 0.19. Urinalysis reveals many bacteria with hyaline casts 0 to 2, coarse granular cast is trace, negative leukocyte esterase. The patient does have proteinuria of 30 with a positive nitrates and bilirubin. Microbiology reveals the blood cultures have no growth at 24 hours. The urine cultures has no growth at 24 hours. Imaging; the patient has had a tibia-fibula x-ray, which was read by Dr. Sai Reyes with no evidence of any acute displaced fracture nor dislocation. No cortical destruction to suggest osteomyelitis. Degenerative osteoarthritis is noted. The patient also had an EEG, which reveals a QTC of 443, had an HIV test negative in 2017. The patient also had an ultrasound of the lower extremity, had a venous Doppler's with no evidence of DVT is noted. History and physical examination is reviewed. Dr. Jojo Kidd's consultation regarding ITP is also renewed and reviewed. The patient was given Augmentin and doxycycline as outpatient without improvement. ASSESSMENT AND PLAN: A 62-year-old male with schizophrenia, hypertension, coronary artery disease, cellulitis of right foot, renal disease and alcohol abuse, admitted now with a left lower extremity cellulitis, failed as outpatient with two antibiotics, with proteinuria and renal insufficiency. We will treat with Teflaro. We will order an arterial Doppler's of the lower extremities. We will also order an MRI of the left lower extremity without contrast, the left ankle and the left foot. In addition, we will also order sed rate, and C-reactive protein, and we will make further recommendations upon availability of initial results. Virgil Parnell MD
[2017-10-08 08:57] VITALS: O2SAT 100
--- NOTE | 2017-10-08 09:02 | CP.PCM.PN ---
<Juju Raza - Last Filed: 10/08/17 11:06> Subjective - Date & Time of Evaluation Date of Evaluation: 10/08/17 Time of Evaluation: 08:00 - Subjective Subjective: Progress Note for Saranya Rucker PGY2 Patient seen and examined at bedside. As per nursing staff, there were no acute overnight events. Patient was ambulating well without assistance on examination. He reports feeling well today. He denies pain, chest pain, shortness of breath, fever/chills, nausea/vomiting/diarrhea, constipation, numbness or tingling. Objective - Vital Signs/Intake and Output Vital Signs (last 24 hours): Temp Pulse Resp BP Pulse Ox 98.3 F 78 20 142/74 100 10/08/17 06:00 10/08/17 06:00 10/08/17 06:00 10/08/17 06:00 10/08/17 06:00 Intake and Output: 10/08/17 10/08/17 06:59 18:59 Intake Total 120 Balance 120 - Medications Medications: Current Medications Benztropine Mesylate (Cogentin) 0.5 mg PO BID [facility] Last Admin: 10/07/17 17:35 Dose: 0.5 mg Folic Acid (Folic Acid) 1 mg PO DAILY [facility] Last Admin: 10/07/17 10:28 Dose: 1 mg Ceftaroline Fosamil 600 mg/ (Sodium Chloride) 100 mls @ 100 mls/hr IVPB Q12 [facility] PRN Reason: Protocol Stop: 10/16/17 10:01 Last Admin: 10/07/17 22:14 Dose: 100 mls/hr Losartan Potassium (Cozaar) 50 mg PO DAILY [facility] Last Admin: 10/07/17 10:28 Dose: 50 mg Ziprasidone (Geodon Cap) 40 mg PO BID [facility] Last Admin: 10/07/17 17:34 Dose: 40 mg - Labs Labs: PT 14.2 SECONDS (9.4-12.5) H 10/06/17 11:41 INR 1.23 (0.93-1.08) H 10/06/17 11:41 APTT 26.9 Seconds (25.1-36.5) 10/06/17 11:41 - Constitutional Appears: No Acute Distress - Head Exam Head Exam: ATRAUMATIC, NORMAL INSPECTION, NORMOCEPHALIC - Eye Exam Eye Exam: Normal appearance, PERRL Pupil Exam: NORMAL ACCOMODATION, PERRL - ENT Exam ENT Exam: Mucous Membranes Moist - Respiratory Exam Respiratory Exam: Clear to Ausculation Bilateral, NORMAL BREATHING PATTERN. absent: Rales, Rhonchi, Wheezes - Cardiovascular Exam Cardiovascular Exam: REGULAR RHYTHM, +S1, +S2. absent: Gallop, Rubs, Murmur - GI/Abdominal Exam GI & Abdominal Exam: Soft, Normal Bowel Sounds. absent: Rigid, Tenderness, Mass , Rebound - Extremities Exam Extremities Exam: Pedal Edema (on L leg ). absent: Calf Tenderness - Neurological Exam Neurological Exam: Alert, Awake, CN II-XII Intact, Normal Gait, Oriented x3 - Psychiatric Exam Psychiatric exam: Normal Affect - Skin Skin Exam: Dry, Erythema (on L pagan from ankle to mid calf. no drainage noted ) , Warm Assessment and Plan - Assessment and Plan (Free Text) Assessment: This is a 62yo male with past medical history of HTN and schizophrenia who is admitted for: 1. L Leg cellulitis (failed outpatient treatment) 2. HTN 3. Schizophrenia 4. Anemia (anemia of chronic disease) Plan: Patient is on Teflaro. Labs were reviewed. Imaging was reviewed and no evidence of osteomyelitis or DVT were noted. KRISHNA was normal. ID was consulted and recommendations were appreciated. We will continue his Cozaar, Geodon and Cogentin. His hgb is stable at this time and will continue Folic acid. He will follow up with Dr. Kidd as outpatient. He is able to ambulate without assistance. Patient will need one more day of IV antibiotics. Plan for discharge is tomorrow. Case seen, discussed and reviewed with Dr. Graves. Saranya Raza PGY2 <Luis Graves - Last Filed: 10/08/17 13:03> Objective - Vital Signs/Intake and Output Vital Signs (last 24 hours): Temp Pulse Resp BP Pulse Ox 98.3 F 78 20 142/74 100 10/08/17 06:00 10/08/17 06:00 10/08/17 06:00 10/08/17 09:07 10/08/17 06:00 Intake and Output: 10/08/17 10/08/17 06:59 18:59 Intake Total 120 Balance 120 - Medications Medications: Current Medications Benztropine Mesylate (Cogentin) 0.5 mg PO BID [facility] Last Admin: 10/08/17 09:07 Dose: 0.5 mg Folic Acid (Folic Acid) 1 mg PO DAILY [facility] Last Admin: 10/08/17 09:08 Dose: 1 mg Ceftaroline Fosamil 600 mg/ (Sodium Chloride) 100 mls @ 100 mls/hr IVPB Q12 [facility] PRN Reason: Protocol Stop: 10/16/17 10:01 Last Admin: 10/08/17 09:09 Dose: 100 mls/hr Losartan Potassium (Cozaar) 50 mg PO DAILY [facility] Last Admin: 10/08/17 09:07 Dose: 50 mg Ziprasidone (Geodon Cap) 40 mg PO BID [facility] Last Admin: 10/08/17 09:06 Dose: 40 mg - Labs Labs: PT 14.2 SECONDS (9.4-12.5) H 10/06/17 11:41 INR 1.23 (0.93-1.08) H 10/06/17 11:41 APTT 26.9 Seconds (25.1-36.5) 10/06/17 11:41 Assessment and Plan - Assessment and Plan (Free Text) Plan: Pt seen and examined. Agree with the note of the medical diagnostic radiographer. Labs and medications have been reviewed. Continue with Teflaro. ID input appreciated. No hallucinations or psychosis. Will speak to ID about length of antibiotics.
[2017-10-08] MEDS: Ceftaroline 600 MG in Sodium Chloride 0.9% 100 ML IVPB SCH ×2 (09:09→22:36)
--- NOTE | 2017-10-08 09:31 | MRI ---
PROCEDURE: MRI Left Ankle HISTORY: Pain. COMPARISON: None available. TECHNIQUE: Multiecho multiplanar sequences were performed through the left ankle without the use of intravenous contrast. FINDINGS: ANTERIOR EXTENSOR TENDONS: Normal. MEDIAL FLEXOR TENDONS: Normal. PERONEAL TENDONS: Normal. ANTERIOR INFERIOR TIBIOFIBULAR (SYNDESMOSIS): Normal. POSTERIOR INFERIOR TIBIOFIBULAR (SYNDESMOSIS): Normal. ANTERIOR TALOFIBULAR LIGAMENT: Normal. POSTERIOR TALOFIBULAR LIGAMENT: Normal. PLANTAR FASCIA: Plantar heel spurring.. SINUS TARSI: Normal. ACHILLES TENDON: Normal. Retro calcaneal heel spurring. 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 CALCANEOFIBULAR LIGAMENT: Normal. SPRING (PLANTAR CALCANEO-NAVICULAR) LIGAMENT: Normal. BONES: Normal marrow signal. CARTILAGE: Preserved. JOINT FLUID: Normal. MUSCLES: Normal. OTHER FINDINGS: Bimalleolar soft tissue swelling.. IMPRESSION: Chronic partial tear of the deltoid lesion with partial ossification. Circumferential soft tissue swelling. Retrocalcaneal and plantar heel spurs..
--- NOTE | 2017-10-08 14:56 | CP.PCM.PN ---
Subjective - Date & Time of Evaluation Date of Evaluation: 10/08/17 Time of Evaluation: 12:30 - Subjective Subjective: Comfortable in bed, less pain in the left leg, no fevers. Objective - Vital Signs/Intake and Output Vital Signs (last 24 hours): Temp Pulse Resp BP Pulse Ox 98.3 F 78 20 142/74 100 10/08/17 06:00 10/08/17 06:00 10/08/17 06:00 10/08/17 09:07 10/08/17 06:00 Intake and Output: 10/08/17 10/08/17 06:59 18:59 Intake Total 120 Balance 120 - Medications Medications: Current Medications Benztropine Mesylate (Cogentin) 0.5 mg PO BID [facility] Last Admin: 10/08/17 09:07 Dose: 0.5 mg Folic Acid (Folic Acid) 1 mg PO DAILY [facility] Last Admin: 10/08/17 09:08 Dose: 1 mg Ceftaroline Fosamil 600 mg/ (Sodium Chloride) 100 mls @ 100 mls/hr IVPB Q12 [facility] PRN Reason: Protocol Stop: 10/16/17 10:01 Last Admin: 10/08/17 09:09 Dose: 100 mls/hr Losartan Potassium (Cozaar) 50 mg PO DAILY [facility] Last Admin: 10/08/17 09:07 Dose: 50 mg Ziprasidone (Geodon Cap) 40 mg PO BID [facility] Last Admin: 10/08/17 09:06 Dose: 40 mg - Labs Labs: PT 14.2 SECONDS (9.4-12.5) H 10/06/17 11:41 INR 1.23 (0.93-1.08) H 10/06/17 11:41 APTT 26.9 Seconds (25.1-36.5) 10/06/17 11:41 - Constitutional Appears: Chronically Ill - Head Exam Head Exam: NORMAL INSPECTION - ENT Exam ENT Exam: Mucous Membranes Moist - Neck Exam Neck Exam: absent: Lymphadenopathy, Meningismus - Respiratory Exam Respiratory Exam: Decreased Breath Sounds - Cardiovascular Exam Cardiovascular Exam: +S1, +S2 - GI/Abdominal Exam GI & Abdominal Exam: Soft. absent: Tenderness - Extremities Exam Additional comments: left leg with decreasing swelling and erythema, resolving hematoma Assessment and Plan - Assessment and Plan (Free Text) Plan: Assessment left leg cellulitis with tenosynovitis, slowly improving, with no evidence of osteomyelitis or abscess HTN schizophrenia alcohol abuse HTN chronic renal failure Plan continue Teflaro day 2; cultures have been negative; if patient continues to improve, may be able to switch to PO antibiotics by tomorrow
[2017-10-09 08:00] VITALS: BP 126/69; PULSE 72; RESP 20; TEMP 98
--- NOTE | 2017-10-09 09:50 | PN ---
DATE: 10/09/2017 SUBJECTIVE: The patient seen in room 573, bed 3. No fevers and no chills. No nausea or vomiting. The patient's leg is much improved. PHYSICAL EXAMINATION: VITAL SIGNS: Temperature is 98, blood pressure is 120/70, respiratory rate of 16. HEENT: Examination of HEENT is unremarkable. NECK: Supple. LUNGS: Have decreased breath sounds. HEART: Normal S1, S2. ABDOMEN: Soft. EXTREMITIES: Examination of leg is much improved. LABORATORY DATA: Laboratory examination reveals a white count of 7, hemoglobin of 10, platelets of 143 and the chemistries reveals the patient has BUN of 15, creatinine of 0.5. Microbiology reveals the blood cultures are negative, urine cultures are negative. ASSESSMENT AND PLAN: A 62-year-old male, seen earlier today in 573, bed 3 with a left leg cellulitis and tenosynovitis, slowly improving. No evidence of osteomyelitis on MRI. Currently, on Teflaro day #3, may be able to switch to p.o. doxycycline and p.o. Augmentin x10 days. Review of the MRI is noted. Negative for osteomyelitis. Tenosynovitis is noted. Virgil Parnell MD
--- NOTE | 2017-10-10 07:42 | DS ---
HISTORY OF PRESENT ILLNESS: This is a 62-year-old male who had come into the hospital with left-sided cellulitis. The patient was placed on Teflaro. He had improvement of his symptoms. He has no pain or swelling. He was seen by Infectious Disease. He is going to be discharged home today to follow up as an outpatient. He has no complaints of any headaches or dizziness. PHYSICAL EXAMINATION: VITAL SIGNS: Temperature is 98, pulse is 72, blood pressure 126/69, respirations 20, O2 saturation is 100%. GENERAL: The patient is lying in bed, flat, comfortable. HEENT: No oral lesion. Anicteric sclerae. Moist mucosa. NECK: No JVD, adenopathy, or thyromegaly. CARDIOVASCULAR: S1 and S2, regular. No murmurs, rubs, or gallops. LUNGS: Clear to auscultation bilaterally. No wheeze, rales, or rhonchi. ABDOMEN: Bowel sounds are positive, soft, nontender and nondistended. EXTREMITIES: No cyanosis, clubbing or edema. ASSESSMENT: 1. Left leg cellulitis. 2. Hypertension. 3. Schizophrenia. 4. Anemia, chronic. 5. Idiopathic thrombocytopenic purpura PLAN: The patient is on Teflaro. He will be switched over to oral antibiotics with doxycycline and Augmentin. I did speak to Dr. Parnell regarding the case. He is going to get 10 more days. He is going to follow up with Dr. Kidd as well for his ITP. Patient is on his Geodon, he is going to continue. He is on losartan for his hypertension. He is on a heart-healthy diet. CONDITION: Stable. ACTIVITIES: Increase as tolerated. Follow up with Dr. Graves, in 1-2 weeks. Follow up with Dr. Kidd in 2 to 3 weeks. Luis Graves MD
== END 2017-10-09 12:12 | disposition home or self-care (01) | DRG 603 ==
LOC: ED 09:35 → ERH 13:56 → 5RSO 16:00
PROVIDERS: ADMIT Internal Medicine Nephrology; ATTEND Internal Medicine Nephrology
DX: L03.116 Cellulitis of left lower limb (principal); D69.3 Immune thrombocytopenic purpura; L03.115 Cellulitis of right lower limb; M19.90 Unspecified osteoarthritis, unspecified site; M65.9 Synovitis and tenosynovitis, unspecified; I12.9 Hypertensive chronic kidney disease with stage 1 through stage 4 chronic kidney disease, or unspecified chronic kidney disease; N18.9 Chronic kidney disease, unspecified; F20.9 Schizophrenia, unspecified; F10.10 Alcohol abuse, uncomplicated; D63.8 Anemia in other chronic diseases classified elsewhere; F39 Unspecified mood [affective] disorder; I25.10 Atherosclerotic heart disease of native coronary artery without angina pectoris; S80.10XA Contusion of unspecified lower leg, initial encounter; Z87.891 Personal history of nicotine dependence

== ENCOUNTER 2017-11-03 10:32 | Inpatient (IN) | payer MEDICARE, OTHER ==
[2017-11-03 10:49] VITALS: BMI 27.9
--- NOTE | 2017-11-03 11:26 | ED PDOC ---
Arrival/HPI - General Chief Complaint: Lower Extremity Problem/Injury Time Seen by Provider: 11/03/17 11:03 Historian: Patient, Spouse - History of Present Illness Narrative History of Present Illness (Text): 11/03/17 11:23 Patient reports "infection" to bilateral legs for the past 15 days. Also reports bruising to his legs which he noted today. No injury. Denies any pain or numbness. States that he has no strength, but throughout his entire body. He was recently admitted one month ago for L leg cellulitis, completed a course of IV abx and then was discharged on 10 days of PO abx. However he states he only completed 7 of 10 days of the PO abx because he kept choking on the pills. He denies fever, nausea, vomiting or any pain. notes that patient has not been eating much for the past two weeks. Time/Duration: > week Symptom Course: Unchanged Past Medical History - Provider Review Nursing Documentation Reviewed: Yes - Travel History Have you recently traveled outside [place] w/in the past 3 mons?: No - Infectious Disease Hx of Infectious Diseases: None - Tetanus Immunization Tetanus Immunization: Unknown - Cardiac Hx Cardiac Disorders: Yes Hx Hypertension: Yes - Pulmonary Hx Respiratory Disorders: Yes (TONSILLECTOMY) Other/Comment: H/O OF SMOKING CIGARETTES .QUIT PPD. - Neurological Hx Neurological Disorder: No - HEENT Hx HEENT Disorder: Yes (TONSILLECTOMY) - Renal Hx Renal Disorder: No - Endocrine/Metabolic Hx Endocrine Disorders: No - Hematological/Oncological Hx Blood Disorders: No - Integumentary Hx Dermatological Disorder: Yes Other/Comment: [id number] CELLULITIS TO BILATERAL LE MORE TO RIGHT.DENIES PAIN.ERYTHEMA.PINPOINT REDDENED RASH. 18 BILATERAL LEG CELLULITIS.BILATERAL LEG EDEMA AND ECCHYMOSIS EXTENDS TO THIGH. RIGHT LEG REDNESS EXTENDS UPTWARD TO THIGH WITH A DEMARCATION LINE PLACED. LEFT LEG , GABRIEL BONE WITH BLUISH GREENISH HUE,BACK OF KNEE HAS A LARGE ECCHYMOSIS EXTENDS TO THIGH. - Musculoskeletal/Rheumatological Hx Musculoskeletal Disorders: Yes (SHOULDER DISLOCATION. RIGHT) Hx Falls: Yes - Gastrointestinal Hx Gastrointestinal Disorders: No - Genitourinary/Gynecological Hx Genitourinary Disorders: No - Psychiatric Hx Psychophysiologic Disorder: Yes (mood disorder) Hx Schizophrenia: Yes Hx Substance Use: No Other/Comment: USED TO SMOKE AND DRINK ALCOHOL. - Anesthesia Hx Anesthesia: Yes Hx Anesthesia Reactions: No Hx Malignant Hyperthermia: No Family/Social History - Physician Review Nursing Documentation Reviewed: Yes Family/Social History: Unknown Family HX Smoking Status: Former Smoker Hx Alcohol Use: Yes (ETOH ABUSE. QUIT) Hx Substance Use: No Hx Substance Use Treatment: No Allergies/Home Meds Allergies/Adverse Reactions: Allergies No Known Allergies Allergy (Verified 10/06/17 17:09) Home Medications: Home Meds Medication Instructions Recorded Confirmed Benztropine [Cogentin] 0.5 mg PO BID 01/13/17 11/03/17 Losartan Potassium 50 mg PO DAILY 01/13/17 11/03/17 Ziprasidone [Geodon Cap] 40 mg PO BID 01/13/17 11/03/17 Folic Acid 1 tab PO DAILY 10/06/17 11/03/17 OLANZapine [Zyprexa Zydis] 1 tab PO BID 11/03/17 11/03/17 Review of Systems - Review of Systems Constitutional: Fatigue, Other (Decreased PO intake) Eyes: Normal ENT: Normal Respiratory: Normal Cardiovascular: Normal Gastrointestinal: Normal Musculoskeletal: Other (No leg pain) Skin: Other (Ecchymosis) Hemo/Lymphatic: Easy Bruising. absent: Easy Bleeding Physical Exam Vital Signs Reviewed: Yes Vital Signs Temp Pulse Resp BP Pulse Ox 11/03/17 15:29 97.6 F 78 18 104/57 L 11/03/17 15:21 97.6 F 77 17 104/57 L 100 11/03/17 10:50 98.4 F 120 H 18 92/60 L 100 Temperature: Afebrile Blood Pressure: Hypotensive Pulse: Tachycardic Respiratory Rate: Normal Appearance: Positive for: Uncomfortable Pain Distress: None Mental Status: Positive for: Alert and Oriented X 3 - Systems Exam Head: Present: Atraumatic Pupils: Present: PERRL Extroacular Muscles: Present: EOMI Conjunctiva: Present: Normal Mouth: Present: Moist Mucous Membranes Respiratory/Chest: Present: Clear to Auscultation Cardiovascular: Present: Tachycardic Abdomen: No: Tenderness, Rebound, Guarding Rectal: Present: Normal Rectal Tone. No: Occult Blood, Rectal Tenderness, Gross Blood, Melena, Hemorrhoids, Fissures, Nodule/Mass/Lesions Upper Extremity: Present: Normal Inspection Lower Extremity: Present: NORMAL PULSES, Other (Scattered ecchymosis and petechiae to bilateral lower extremities, from the knees down) Skin: Present: Warm, Other (Jaundice) Psychiatric: Present: Alert Medical Decision Making ED Course and Treatment: 11/03/17 11:37 Labs ordered. 1L NS bolus ordered. 11/03/17 12:30 Elevated lactate and anemia noted. Type/screen and 2u PRBC ordered. Consent obtained. Second liter NS given. Rectal exam done, patient hemoccult negative. Zosyn ivpb ordered for sepsis prophylaxis given initial hypotension and tachycardia, with elevated lactate, however this is likely secondary to anemia/ blood loss rather than sepsis. 11/03/17 14:[address] Graves who accepts admission. Bridging orders placed. Re-evaluation Time: 14:29 Reassessment Condition: Improved (BP 100/54, HR 88) - Lab Interpretations Lab Results: 11/03/17 12:08 11/03/17 12:08 Lab Results 11/03/17 12:45: Blood Type A POSITIVE, Antibody Screen Negative, Crossmatch See Detail, BBK History Checked Patient has bt 11/03/17 12:08: Lactic Acid 4.5 H* 11/03/17 12:08: Sodium 142, Potassium 3.6, Chloride 106, Carbon Dioxide 18 L, Anion Gap 21 H, BUN 21, Creatinine 1.3, Est GFR ( Amer) > 60, Est GFR ( Non-Af Amer) 56, Random Glucose 126 H, Calcium 8.9, Phosphorus 2.6, Magnesium 2.1, Total Bilirubin 4.7 H, AST 41, ALT 20, Alkaline Phosphatase 43, Total Protein 6.9, Albumin 3.8, Globulin 3.1, Albumin/Globulin Ratio 1.2 11/03/17 12:08: PT 17.8 H, INR 1.53 H, APTT 26.3 11/03/17 12:08: WBC 6.5, RBC 2.14 L, Hgb 6.8 L* D, Hct 21.2 L, MCV 99.1 D, MCH 31.8, MCHC 32.1, RDW 17.6 H, Plt Count 196, MPV 9.4, Gran % 91.6 H, Lymph % ( Auto) 6.3 L, [place] % (Auto) 2.1, Eos % (Auto) 0.0 L, Baso % (Auto) 0.0, Gran # 5.98, Lymph # (Auto) 0.4 L, [place] # (Auto) 0.1, Eos # (Auto) 0.0, Baso # (Auto) 0.00, Neutrophils % (Manual) 94 H, Lymphocytes % (Manual) 5 L, Monocytes % ( Manual) 1, Platelet Evaluation Normal, Hypochromasia Slight - RAD Interpretation Narrative RAD Interpretations (Text): Accession No. : [id number] Patient Name / ID : STEPHANIE COBB / [id number] Exam Date : 11/03/2017 11:47:05 ( Approved ) Study Comment : Sex / Age : M / 62Y Creator : Angela Schwartz Dictator : Angela Schwartz Prom Burn Off Operator : Software Application Tester : Angela Schwartz Approver2 : Report Date : 11/03/2017 12:31:53 My Comment : HISTORY: Sepsis Patient COMPARISON: 01/13/2017 FINDINGS: LUNGS: No active pulmonary disease. The right hilar appearance is less pronounced on the current study -the prior appearance is attributed to the right hilar vessels being prominent seen on end. PLEURA: No significant pleural effusion identified, no pneumothorax apparent. CARDIOVASCULAR: Normal. OSSEOUS STRUCTURES: Thoracic spondylosis VISUALIZED UPPER ABDOMEN: Normal. OTHER FINDINGS: None. IMPRESSION: No active disease. Radiology Orders: 11/03/17 11:33 CHEST PORTABLE [RAD] Stat Inspector Screen Printing: Radiologist - EKG Interpretation EKG Interpretation (Text): Sinus tachycardia rate 108 short AK at 104, normal QRS, prolonged QTc 549, normal axis, ST depression/TWI in lateral leads Interpreted by ED Physician: Yes Type: 12 lead EKG Comparison: Different from prev. EKG (when compared to 10/06/17, ST/T changes are new) - Medication Orders Current Medication Orders: Discontinued Medications Sodium Chloride (Sodium Chloride 0.9%) 1,000 mls @ 999 mls/hr IV .Q1H1M STA Stop: 11/03/17 12:30 Last Admin: 11/03/17 12:22 Dose: 999 mls/hr eMAR Start Stop Document 11/03/17 12:22 HI (Rec: 11/03/17 12:22 HI [id number]) Intravenous Solution Start Date 11/03/17 Start Time 12:22 Piperacillin Sod/Tazobactam Sod (Zosyn 4.5 Gm In Ns 100ml) 4.5 gm in 100 mls @ 200 mls/hr IVPB STAT STA PRN Reason: Protocol Stop: 11/03/17 13:49 Last Admin: 11/03/17 14:17 Dose: 200 mls/hr eMAR Start Stop Document 11/03/17 14:17 HI (Rec: 11/03/17 14:17 HI [id number] Intravenous Solution Start Date 11/03/17 Start Time 14:17 Disposition/Present on Arrival - Present on Arrival Any Indicators Present on Arrival: No History of DVT/PE: No History of Uncontrolled Diabetes: No Urinary Catheter: No History of Decub. Ulcer: No History Surgical Site Infection Following: None - Disposition Have Diagnosis and Disposition been Completed?: Yes Diagnosis: Anemia Disposition: HOSPITALIZED Disposition Time: 14:28 (Admitted to Dr. Graves) Patient Plan: Admission, Telemetry Patient Problems: Current Active Problems Problem Status Onset Anemia Acute Condition: GUARDED
[2017-11-03] MEDS ORDERED: Sodium Chloride 0.9% 1,000 ML IV STA (11:30)
[2017-11-03 12:15] LABS: GRAN # 5.98 (1.4-6.5); GRAN % 91.6 % (50.0-68.0); LYMPH # 0.4 (1.2-3.4); LYMPH % 6.3 % (22.0-35.0); MEAN CELL VOLUME 99.1 fl (80.0-105.0); MEAN CORPUSCULAR HEMOGLOBIN 31.8 pg (25.0-35.0); MEAN CORPUSCULAR HGB CONC 32.1 g/dl (31.0-37.0); MEAN PLATELET VOLUME 9.4 fl (7.0-11.0); MONO # 0.1 (0.1-0.6); MONO % 2.1 % (1.0-6.0); PLATELET COUNT 196 10^3/uL (120.0-450.0); RBC 2.14 10^6/uL (3.5-6.1); RED CELL DISTRIBUTION WIDTH 17.6 % (11.5-14.5); WHITE BLOOD COUNT 6.5 10^3/ul (4.5-11.0)
[2017-11-03 12:24] LABS: HEMOGLOBIN 6.8 g/dL (14.0-18.0)
[2017-11-03 12:27] LABS: ALB/GLOB RATIO 1.2 (1.1-1.8); ALBUMIN 3.8 g/dL (3.0-4.8); ALT/SGPT 20 U/L (7-56); AST/SGOT 41 U/L (17-59); BLOOD UREA NITROGEN 21 mg/dL (7-21); CALCIUM 8.9 mg/dL (8.4-10.5); GFR AFRICAN-AMERICAN > 60; GFR NON-AFRICAN AMERICAN 56
[2017-11-03 12:29] LABS: PARTIAL THROMBOPLASTIN TIME 26.3 Seconds (25.1-36.5)
--- NOTE | 2017-11-03 12:33 | RAD ---
HISTORY: Sepsis Patient COMPARISON: 01/13/2017 FINDINGS: LUNGS: No active pulmonary disease. The right hilar appearance is less pronounced on the current study -the prior appearance is attributed to the right hilar vessels being prominent seen on end. PLEURA: No significant pleural effusion identified, no pneumothorax apparent. CARDIOVASCULAR: Normal. OSSEOUS STRUCTURES: Thoracic spondylosis VISUALIZED UPPER ABDOMEN: Normal. OTHER FINDINGS: None. IMPRESSION: No active disease.
[2017-11-03 12:35] LABS: INR 1.53 (0.93-1.08); PROTHROMBIN TIME 17.8 SECONDS (9.4-12.5)
[2017-11-03] MEDS ORDERED: Piperacill/Tazo 4.5gm in NS 4.5 GM/100 ML BAG IVPB STA (13:20)
[2017-11-03 13:28] LABS: HYPOCHROMIA SLIGHT; LYMPHOCYTE 5 % (22.0-35.0); MONOCYTE 1 % (1.0-6.0); NEUTROPHIL 94 % (50.0-70.0); PLATELET ESTIMATE NORMAL (NORMAL)
[2017-11-03] MEDS ORDERED: Pneumococcal 23-Valent Vaccine IM ONE (21:44)
[2017-11-03] MEDS: ceFAZolin 1 gm in NS 1 GM/100 ML BAG IVPB SCH (23:50)
[2017-11-04 01:40] LABS: URINE BILIRUBIN NEGATIVE (NEGATIVE); URINE BLOOD NEGATIVE (NEGATIVE); URINE GLUCOSE (UA) NEGATIVE (NEGATIVE); URINE LEUKOCYTE ESTERASE NEGATIVE Leu/uL (NEGATIVE); URINE PROTEIN NEGATIVE mg/dL (<30 mg/dL); URINE UROBILINOGEN 0.2 E.U./dL (<1 E.U./dL)
[2017-11-04 01:49] LABS: URINE APPEARANCE CLEAR (CLEAR); URINE COLOR DARK YELLOW (YELLOW)
[2017-11-04] MEDS: ceFAZolin 1 gm in NS 1 GM/100 ML BAG IVPB SCH ×3 (05:31→21:30)
[2017-11-04 07:06] LABS: HEMOGLOBIN 7.5 g/dL (14.0-18.0); MEAN CELL VOLUME 96.2 fl (80.0-105.0); MEAN CORPUSCULAR HEMOGLOBIN 31.5 pg (25.0-35.0); MEAN CORPUSCULAR HGB CONC 32.8 g/dl (31.0-37.0); MEAN PLATELET VOLUME 9.5 fl (7.0-11.0); RBC 2.38 10^6/uL (3.5-6.1); RED CELL DISTRIBUTION WIDTH 18.9 % (11.5-14.5)
--- NOTE | 2017-11-04 07:38 | CP.PCM.CON ---
<Juju Raza - Last Filed: 11/04/17 11:33> History of Present Illness - History of Present Illness History of Present Illness: GI Consult Note for Saranya Marino PGY2 Reason for consult: Anemia This is a 62yo male with past medical history of HTN, schizophrenia, ITP, hep C (treated) who came to ED for "infection in his legs". Patient reports he was taking PO antibiotics for cellulitis, but was only able to complete 7 of 10 days of antibiotics. He reports the pills were very had to swallow. Patient states he then noticed some bruising in his legs bilaterally. He denies having any trauma, nausea/vomiting/diarrhea, fever/chills, chest pain, shortness of breath, abdominal pain, numbness or tingling. Patient states he has never had an EGD or colonoscopy before. He sees Dr. Kidd as outpatient, but has not seen her since his last admission about 1 month ago. He denies having any dark colored stool or blood in stool. His bowel movements are regular. Patient states he does have some decrease in appetite, but denies weight loss. Past medical history: HTN, schizophrenia, ITP, Hep C (treated) Past surgical history: surgery of L thumb as teenager, no EGD or colonoscopy Home meds: Reviewed as per MAR Allergies: NKDA Social history: Quit EtOH use 17yrs ago. Former tobacco user (quit 12yrs ago). Denies drug use. Lives in multi-family home. Sister lives upstairs. Independent in all ADLs Family history: Dad- pancreatic cancer (), Mom- lung cancer () Heme: Dr. Kidd Review of Systems - Review of Systems All systems: reviewed and no additional remarkable complaints except Review of Systems: 12 point ROS reviewed as per HPI and is otherwise negative. Past Patient History - Infectious Disease Hx of Infectious Diseases: None - Tetanus Immunizations Tetanus Immunization: Unknown - Past Social History Smoking Status: Former Smoker - CARDIAC Hx Cardiac Disorders: Yes Hx Hypertension: Yes - PULMONARY Hx Respiratory Disorders: Yes (TONSILLECTOMY) Other/Comment: H/O OF SMOKING CIGARETTES .QUIT PPD. - NEUROLOGICAL Hx Neurological Disorder: No - HEENT Hx HEENT Problems: Yes (TONSILLECTOMY) - RENAL Hx Chronic Kidney Disease: No - ENDOCRINE/METABOLIC Hx Endocrine Disorders: No - HEMATOLOGICAL/ONCOLOGICAL Hx Blood Disorders: No - INTEGUMENTARY Hx Dermatological Problems: Yes Other/Comment: [id number] CELLULITIS TO BILATERAL LE MORE TO RIGHT.DENIES PAIN.ERYTHEMA.PINPOINT REDDENED RASH. 10-06-17 BILATERAL LEG CELLULITIS.BILATERAL LEG EDEMA AND ECCHYMOSIS EXTENDS TO THIGH. RIGHT LEG REDNESS EXTENDS UPTWARD TO THIGH WITH A DEMARCATION LINE PLACED. LEFT LEG , GABRIEL BONE WITH BLUISH GREENISH HUE,BACK OF KNEE HAS A LARGE ECCHYMOSIS EXTENDS TO THIGH. - MUSCULOSKELETAL/RHEUMATOLOGICAL Hx Musculoskeletal Disorders: Yes (SHOULDER DISLOCATION. RIGHT) Hx Falls: Yes - GASTROINTESTINAL Hx Gastrointestinal Disorders: No - GENITOURINARY/GYNECOLOGICAL Hx Genitourinary Disorders: No - PSYCHIATRIC Hx Psychophysiologic Disorder: Yes (mood disorder) Hx Schizophrenia: Yes Hx Substance Use: No Other/Comment: USED TO SMOKE AND DRINK ALCOHOL. - SURGICAL HISTORY Hx Surgeries: Yes (TONSILLECTOMY,LEFT PALM STITCHED-HAND WENT THROUGH A WINDOW PANE.) - ANESTHESIA Hx Anesthesia: Yes Hx Anesthesia Reactions: No Hx Malignant Hyperthermia: No Meds Allergies/Adverse Reactions: Allergies Allergy/AdvReac Type Severity Reaction Status Date / Time No Known Allergies Allergy Verified 11/03/17 19:36 - Medications Medications: Current Medications Folic Acid (Folic Acid) 1 mg PO DAILY [facility] Cefazolin Sodium (Ancef 1gm In Ns) 1 gm in 100 mls @ 100 mls/hr IVPB Q8 [facility] PRN Reason: Protocol Last Admin: 11/04/17 05:31 Dose: 100 mls/hr Losartan Potassium (Cozaar) 50 mg PO DAILY [facility] Physical Exam - Constitutional Appears: No Acute Distress - Head Exam Head Exam: ATRAUMATIC, NORMAL INSPECTION, NORMOCEPHALIC - Eye Exam Eye Exam: Normal appearance, PERRL Pupil Exam: NORMAL ACCOMODATION, PERRL - ENT Exam ENT Exam: Mucous Membranes Moist - Respiratory Exam Respiratory Exam: Clear to Auscultation Bilateral, NORMAL BREATHING PATTERN. absent: Rales, Rhonchi, Wheezes - Cardiovascular Exam Cardiovascular Exam: REGULAR RHYTHM, +S1, +S2. absent: Gallop, Rubs, Systolic Murmur - GI/Abdominal Exam GI & Abdominal Exam: Normal Bowel Sounds, Soft. absent: Rebound, Rigid, Tenderness - Extremities Exam Additional comments: discoloration to shins bilaterally - Neurological Exam Neurological exam: Alert, CN II-XII Intact, Oriented x3 - Psychiatric Exam Psychiatric exam: Normal Affect, Normal Mood - Skin Skin Exam: Dry, Warm Results - Vital Signs Recent Vital Signs: Last Vital Signs Temp 98.5 F 11/04/17 05:54 Pulse 88 11/04/17 05:54 Resp 19 11/04/17 05:54 BP 139/79 11/04/17 05:54 Pulse Ox 100 11/04/17 05:54 - Labs Result Diagrams: 11/04/17 06:30 11/04/17 06:30 Labs: Laboratory Results - last 24 hr 11/04/17 11/04/17 11/04/17 00:01 06:30 06:30 WBC 4.0 L D RBC 2.38 L Hgb 7.5 L Hct 22.9 L MCV 96.2 MCH 31.5 MCHC 32.8 RDW 18.9 H Plt Count 128 MPV 9.5 Retic Count 6.69 H Urine Color Dark yellow Urine Appearance Clear Urine pH 6.0 Ur Specific [place] 1.015 Urine Protein Negative Urine Glucose (UA) Negative Urine Ketones Negative Urine Blood Negative Urine Nitrate Negative Urine Bilirubin Negative Urine Urobilinogen 0.2 Ur Leukocyte Esterase Negative Assessment & Plan - Assessment and Plan (Free Text) Assessment: This is a 62yo male with past medical history of HTN, schizophrenia, ITP, hep C (treated) who is admitted for 1. Anemia (most likely hemolytic) 2. Cellulitis of lower extremities 3. Hx of ITP 4. Hx of Hep C (treated) 5. Schizophrenia Plan: Patient is s/p 2U PRBC. No overt signs of bleeding. Anemia seems hemolytic in nature (bilirubin elevated, reticulocyte count elevated). We will obtain LDH, haptoglobin and AFP levels. Will obtain hep panel and hepatitis C viral load. Recommend hematology consult. Will continue to monitor Hgb. Will obtain abdominal U/S to rule out splenomegaly and to evaluated the gallbladder in the setting of elevated bilirubin. Will obtain stool occult blood. Patient does have bilateral lower extremity edema. Duplex U/S and KRISHNA one month ago were negative. Consider repeat lower extremity ultrasound. Case seen, discussed and reviewed with Dr. Beverly. Saranya Raza PGY2 - Date & Time Date: 11/04/17 Time: 08:47 <Hiren Beverly V - Last Filed: 11/04/17 23:26> Meds - Medications Medications: Current Medications Folic Acid (Folic Acid) 1 mg PO DAILY [facility] Last Admin: 11/04/17 10:05 Dose: 1 mg Cefazolin Sodium (Ancef 1gm In Ns) 1 gm in 100 mls @ 100 mls/hr IVPB Q8 [facility] PRN Reason: Protocol Last Admin: 11/04/17 21:30 Dose: 100 mls/hr Sodium Chloride (Sodium Chloride 0.9%) 1,000 mls @ 100 mls/hr IV .Q10H [facility] Stop: 11/05/17 10:00 Last Admin: 11/04/17 20:30 Dose: Not Given Losartan Potassium (Cozaar) 50 mg PO DAILY [facility] Last Admin: 11/04/17 10:07 Dose: 50 mg Olanzapine (Zyprexa) 5 mg PO 1000,2200 [facility] Last Admin: 11/04/17 21:31 Dose: 5 mg Results - Vital Signs Recent Vital Signs: Last Vital Signs Temp 98.4 F 11/04/17 18:00 Pulse 112 H 11/04/17 18:00 Resp 16 11/04/17 18:00 BP 129/82 11/04/17 18:00 Pulse Ox 100 11/04/17 05:54 - Labs Result Diagrams: 11/04/17 06:30 11/04/17 06:30 Labs: Laboratory Results - last 24 hr 11/04/17 11/04/17 11/04/17 00:01 06:30 06:30 WBC 4.0 L D RBC 2.38 L Hgb 7.5 L Hct 22.9 L MCV 96.2 MCH 31.5 MCHC 32.8 RDW 18.9 H Plt Count 128 MPV 9.5 Gran % Lymph % (Auto) [place] % (Auto) Eos % (Auto) Baso % (Auto) Gran # Lymph # (Auto) [place] # (Auto) Eos # (Auto) Baso # (Auto) Retic Count Haptoglobin Sodium 143 Potassium 3.3 L Chloride 110 H Carbon Dioxide 20 L Anion Gap 16 BUN 17 Creatinine 1.1 Est GFR ( Amer) > 60 Est GFR (Non-Af Amer) > 60 Random Glucose 90 Calcium 8.1 L Iron TIBC % Saturation Ferritin Total Bilirubin 4.0 H Direct Bilirubin AST 19 ALT 21 Alkaline Phosphatase 33 L D Lactate Dehydrogenase Total Protein 5.9 Albumin 3.1 Globulin 2.8 Albumin/Globulin Ratio 1.1 Alpha Fetoprotein Vitamin B12 Folate Urine Color Dark yellow Urine Appearance Clear Urine pH 6.0 Ur Specific [place] 1.015 Urine Protein Negative Urine Glucose (UA) Negative Urine Ketones Negative Urine Blood Negative Urine Nitrate Negative Urine Bilirubin Negative Urine Urobilinogen 0.2 Ur Leukocyte Esterase Negative Urine RBC Urine WBC Ur Epithelial Cells Urine Bacteria Hepatitis A IgM Ab Hep Bs Antigen Hep B Core IgM Ab Hepatitis C Antibody GUILLERMO, Poly Interpret Indirect Antiglob Test 11/04/17 11/04/17 11/04/17 06:30 06:30 06:30 WBC RBC Hgb Hct MCV MCH MCHC RDW Plt Count MPV Gran % Lymph % (Auto) [place] % (Auto) Eos % (Auto) Baso % (Auto) Gran # Lymph # (Auto) [place] # (Auto) Eos # (Auto) Baso # (Auto) Retic Count 6.69 H Haptoglobin Sodium Potassium Chloride Carbon Dioxide Anion Gap BUN Creatinine Est GFR ( Amer) Est GFR (Non-Af Amer) Random Glucose Calcium Iron TIBC % Saturation Ferritin Total Bilirubin Direct Bilirubin 0.6 H AST ALT Alkaline Phosphatase Lactate Dehydrogenase 394 Total Protein Albumin Globulin Albumin/Globulin Ratio Alpha Fetoprotein Vitamin B12 Folate Urine Color Urine Appearance Urine pH Ur Specific [place] Urine Protein Urine Glucose (UA) Urine Ketones Urine Blood Urine Nitrate Urine Bilirubin Urine Urobilinogen Ur Leukocyte Esterase Urine RBC Urine WBC Ur Epithelial Cells Urine Bacteria Hepatitis A IgM Ab Negative Hep Bs Antigen Negative Hep B Core IgM Ab Negative Hepatitis C Antibody Reactive GUILLERMO, Poly Interpret Indirect Antiglob Test 11/04/17 11/04/17 11/04/17 06:30 06:30 06:30 WBC 3.9 L RBC 2.41 L Hgb 7.5 L Hct 23.2 L MCV 96.3 MCH 31.1 MCHC 32.3 RDW 18.9 H Plt Count 131 MPV 9.5 Gran % 70.4 H Lymph % (Auto) 22.1 [place] % (Auto) 6.2 H Eos % (Auto) 1.0 L Baso % (Auto) 0.3 Gran # 2.75 Lymph # (Auto) 0.9 L [place] # (Auto) 0.2 Eos # (Auto) 0.0 Baso # (Auto) 0.01 Retic Count Haptoglobin 113.6 Sodium Potassium Chloride Carbon Dioxide Anion Gap BUN Creatinine Est GFR ( Amer) Est GFR (Non-Af Amer) Random Glucose Calcium Iron TIBC % Saturation Ferritin Total Bilirubin Direct Bilirubin AST ALT Alkaline Phosphatase Lactate Dehydrogenase Total Protein Albumin Globulin Albumin/Globulin Ratio Alpha Fetoprotein 3.6 Vitamin B12 Folate Urine Color Urine Appearance Urine pH Ur Specific [place] Urine Protein Urine Glucose (UA) Urine Ketones Urine Blood Urine Nitrate Urine Bilirubin Urine Urobilinogen Ur Leukocyte Esterase Urine RBC Urine WBC Ur Epithelial Cells Urine Bacteria Hepatitis A IgM Ab Hep Bs Antigen Hep B Core IgM Ab Hepatitis C Antibody GUILLERMO, Poly Interpret Indirect Antiglob Test 11/04/17 11/04/17 11/04/17 10:10 10:10 10:10 WBC RBC Hgb Hct MCV MCH MCHC RDW Plt Count MPV Gran % Lymph % (Auto) [place] % (Auto) Eos % (Auto) Baso % (Auto) Gran # Lymph # (Auto) [place] # (Auto) Eos # (Auto) Baso # (Auto) Retic Count Haptoglobin Sodium Potassium Chloride Carbon Dioxide Anion Gap BUN Creatinine Est GFR ( Amer) Est GFR (Non-Af Amer) Random Glucose Calcium Iron 61 TIBC 290 % Saturation 21 Ferritin 223.0 Total Bilirubin Direct Bilirubin AST ALT Alkaline Phosphatase Lactate Dehydrogenase 370 Total Protein Albumin Globulin Albumin/Globulin Ratio Alpha Fetoprotein Vitamin B12 234 L Folate 5.4 Urine Color Urine Appearance Urine pH Ur Specific [place] Urine Protein Urine Glucose (UA) Urine Ketones Urine Blood Urine Nitrate Urine Bilirubin Urine Urobilinogen Ur Leukocyte Esterase Urine RBC Urine WBC Ur Epithelial Cells Urine Bacteria Hepatitis A IgM Ab Hep Bs Antigen Hep B Core IgM Ab Hepatitis C Antibody GUILLERMO, Poly Interpret Indirect Antiglob Test 11/04/17 11/04/17 10:10 15:38 WBC RBC Hgb Hct MCV MCH MCHC RDW Plt Count MPV Gran % Lymph % (Auto) [place] % (Auto) Eos % (Auto) Baso % (Auto) Gran # Lymph # (Auto) [place] # (Auto) Eos # (Auto) Baso # (Auto) Retic Count Haptoglobin Sodium Potassium Chloride Carbon Dioxide Anion Gap BUN Creatinine Est GFR ( Amer) Est GFR (Non-Af Amer) Random Glucose Calcium Iron TIBC % Saturation Ferritin Total Bilirubin Direct Bilirubin AST ALT Alkaline Phosphatase Lactate Dehydrogenase Total Protein Albumin Globulin Albumin/Globulin Ratio Alpha Fetoprotein Vitamin B12 Folate Urine Color Dark yellow Urine Appearance Clear Urine pH 6.0 Ur Specific [place] 1.020 Urine Protein Trace H Urine Glucose (UA) Negative Urine Ketones Negative Urine Blood Negative Urine Nitrate Positive H Urine Bilirubin Negative Urine Urobilinogen 0.2 Ur Leukocyte Esterase Negative Urine RBC 0 - 2 Urine WBC 0 - 2 Ur Epithelial Cells 0 - 2 Urine Bacteria Neg Hepatitis A IgM Ab Hep Bs Antigen Hep B Core IgM Ab Hepatitis C Antibody GUILLERMO, Poly Interpret Negative Indirect Antiglob Test Negative Attending/Attestation - Attestation I have personally seen and examined this patient.: Yes I have fully participated in the care of the patient.: Yes I have reviewed all pertinent clinical information: Yes Notes (Text): This is an addendum to GI consult report dictated by the Ethics Officer.The patient was seen and examined earlier. Medical records, lab studies, imagings were reviewed. Last 24 hours events reviewed. Agreed with the above treatment plan as outlined in Ethics Officer 's notes the with the addition of the following hemolytic anemia history of ITP Cellulitis was on antibiotics teflora Now on ancef On examination abdomen soft no tenderness Hemolytic anemia? drug induced ?te[place]ora repeat sonogram reviewed Hematology follow-up WILL MELVI Kidd 11/04/17 23:20
[2017-11-04 07:41] LABS: BILIRUBIN,DIRECT 0.6 mg/dL (0.0-0.4)
[2017-11-04 07:43] LABS: ALB/GLOB RATIO 1.1 (1.1-1.8); ALBUMIN 3.1 g/dL (3.0-4.8); ALT/SGPT 21 U/L (7-56); AST/SGOT 19 U/L (17-59); BLOOD UREA NITROGEN 17 mg/dL (7-21); CALCIUM 8.1 mg/dL (8.4-10.5); GFR AFRICAN-AMERICAN > 60; GFR NON-AFRICAN AMERICAN > 60
[2017-11-04] MEDS ORDERED: Potassium Chloride 20 mEq ER Tab PO ONE (08:23)
[2017-11-04 08:37] LABS: BASO # 0.01 K/mm3 (0.0-2.0); BASO % 0.3 % (0.0-3.0); GRAN # 2.75 (1.4-6.5); GRAN % 70.4 % (50.0-68.0); HEMOGLOBIN 7.5 g/dL (14.0-18.0); LYMPH # 0.9 (1.2-3.4); LYMPH % 22.1 % (22.0-35.0); MEAN CELL VOLUME 96.3 fl (80.0-105.0); MEAN CORPUSCULAR HEMOGLOBIN 31.1 pg (25.0-35.0); MEAN CORPUSCULAR HGB CONC 32.3 g/dl (31.0-37.0); MEAN PLATELET VOLUME 9.5 fl (7.0-11.0); MONO # 0.2 (0.1-0.6); MONO % 6.2 % (1.0-6.0); RBC 2.41 10^6/uL (3.5-6.1); RED CELL DISTRIBUTION WIDTH 18.9 % (11.5-14.5); WHITE BLOOD COUNT 3.9 10^3/ul (4.5-11.0)
--- NOTE | 2017-11-04 09:48 | HP ---
DATE OF EXAM: 11/04/2017 HISTORY OF PRESENT ILLNESS: Mr. Huerta is a 62-year-old male admitted to the hospital for bilateral lower extremity cellulitis. He follows in the clinic for ITP. During this admission, hemoglobin was found to be 6.8 g/dL. He was admitted last month for lower extremity cellulitis and completed 10 days of oral and IV antibiotics. No fever, no cough with expectoration. Platelet count has been stable in office for past few months. It has been around 90,000. PAST MEDICAL HISTORY: ITP, hypertension, mood disorder. PAST SURGICAL HISTORY: Tonsillectomy. PERSONAL HISTORY: Former smoker. No history of alcohol abuse. SOCIAL HISTORY: Lives at home. ALLERGIES: NO KNOWN DRUG ALLERGIES. HOME MEDICATIONS: Cogentin, losartan, Geodon, folic acid, Zyprexa. REVIEW OF SYSTEMS: As per HPI. Rest of 12-point review of systems reviewed, negative. PHYSICAL EXAMINATION GENERAL: Comfortable in bed, in no acute distress. VITAL SIGNS: Temperature 98.7, heart rate is 80 per minute, respiratory rate 18 per minute, blood pressure 104/57,pulse ox is 100% on room air. HEENT: Pallor positive. NECK: No lymphadenopathy. CHEST: Air entry present and equal bilateral. No added sound. CARDIOVASCULAR: S1 and S2 normal. No murmur. No gallop. ABDOMEN: Soft, nontender. No hepatosplenomegaly. EXTREMITIES: Bilateral lower extremity cellulitis. LABORATORY DATA: White count 6.5, hemoglobin 6.8, hematocrit 21.2, platelets 196. Sodium 146, potassium 3.6, BUN 21, creatinine 1.3, glucose 126. Hemoccult negative. Chest x-ray, no active disease. EKG normal sinus rhythm. ASSESSMENT AND PLAN: 1. Bilateral lower extremity cellulitis. 2. Severe anemia. 3. History of idiopathic thrombocytopenic purpura. 4. Mood disorder. PLAN: He will be admitted to tele monitoring, 2 units of blood transfusion to be given. Lower extremity cellulitis. ID consulted. Recommended Ancef every 8 hours, started. We will continue folic acid and losartan. Bilirubin elevated at 4. Urobilinogen negative. He might be hemolysis, we will sent workup for hemolysis, slide will be reviewed. LDH, haptoglobin will be sent. Repeat UA. GI consultation with Dr. Beverly requested, ID consultation with Dr. Parnell. Psych consultation, Dr. Suazo. Jojo Kidd MD [facility]
[2017-11-04 10:25] LABS: IRON 61 ug/dL (45-180)
[2017-11-04 10:34] LABS: % IRON SATURATION 21 % (20-55); TOTAL IRON BINDING CAPACITY 290 ug/dL (261-462)
[2017-11-04] MEDS: Sodium Chloride 0.9% 1,000 ML IV SCH ×2 (10:45→20:30)
--- NOTE | 2017-11-04 12:24 | CP.PCM.CON ---
History of Present Illness - History of Present Illness History of Present Illness: 62 year old male with PMH of HTN, schizophrenia, alcohol abuse, HTN, chronic renal failure [place] [facility] [place] that he was not able to complete his therapy for cellulitis of his legs because he was choking on his pills and he was only able to finish half the course of his antibiotics. He states that his legs have improved but still feels he needs antibiotics. He denies fever or chills, has somewhat decreased appetite, no nausea or vomiting, on chest pain, no cough or rhinorrhea, no abdominal pain, no chest pain, no diarrhea, no dysuria. Infectious Diseases consult is requested to further evaluate and manage. Review of Systems - Review of Systems All systems: reviewed and no additional remarkable complaints except (as per HPI ) Past Patient History - Infectious Disease Hx of Infectious Diseases: None - Tetanus Immunizations Tetanus Immunization: Unknown - Past Social History Smoking Status: Former Smoker - CARDIAC Hx Cardiac Disorders: Yes Hx Hypertension: Yes - PULMONARY Hx Respiratory Disorders: Yes (TONSILLECTOMY) Other/Comment: H/O OF SMOKING CIGARETTES .QUIT PPD. - NEUROLOGICAL Hx Neurological Disorder: No - HEENT Hx HEENT Problems: Yes (TONSILLECTOMY) - RENAL Hx Chronic Kidney Disease: No - ENDOCRINE/METABOLIC Hx Endocrine Disorders: No - HEMATOLOGICAL/ONCOLOGICAL Hx Blood Disorders: No - INTEGUMENTARY Hx Dermatological Problems: Yes Other/Comment: [id number] CELLULITIS TO BILATERAL LE MORE TO RIGHT.DENIES PAIN.ERYTHEMA.PINPOINT REDDENED RASH. 5-16-18 BILATERAL LEG CELLULITIS.BILATERAL LEG EDEMA AND ECCHYMOSIS EXTENDS TO THIGH. RIGHT LEG REDNESS EXTENDS UPTWARD TO THIGH WITH A DEMARCATION LINE PLACED. LEFT LEG , GABRIEL BONE WITH BLUISH GREENISH HUE,BACK OF KNEE HAS A LARGE ECCHYMOSIS EXTENDS TO THIGH. - MUSCULOSKELETAL/RHEUMATOLOGICAL Hx Musculoskeletal Disorders: Yes (SHOULDER DISLOCATION. RIGHT) Hx Falls: Yes - GASTROINTESTINAL Hx Gastrointestinal Disorders: No - GENITOURINARY/GYNECOLOGICAL Hx Genitourinary Disorders: No - PSYCHIATRIC Hx Psychophysiologic Disorder: Yes (mood disorder) Hx Schizophrenia: Yes Hx Substance Use: No Other/Comment: USED TO SMOKE AND DRINK ALCOHOL. - SURGICAL HISTORY Hx Surgeries: Yes (TONSILLECTOMY,LEFT PALM STITCHED-HAND WENT THROUGH A WINDOW PANE.) - ANESTHESIA Hx Anesthesia: Yes Hx Anesthesia Reactions: No Hx Malignant Hyperthermia: No Meds Allergies/Adverse Reactions: Allergies Allergy/AdvReac Type Severity Reaction Status Date / Time No Known Allergies Allergy Verified 11/03/17 19:36 - Medications Medications: Current Medications Folic Acid (Folic Acid) 1 mg PO DAILY [facility] Cefazolin Sodium (Ancef 1gm In Ns) 1 gm in 100 mls @ 100 mls/hr IVPB Q8 [facility] PRN Reason: Protocol Losartan Potassium (Cozaar) 50 mg PO DAILY [facility] Physical Exam - Constitutional Appears: Non-toxic, Chronically Ill - Head Exam Head Exam: NORMAL INSPECTION - ENT Exam ENT Exam: Mucous Membranes Moist - Neck Exam Neck exam: Negative for: Lymphadenopathy, Meningismus - Respiratory Exam Respiratory Exam: Decreased Breath Sounds - Cardiovascular Exam Cardiovascular Exam: +S1, +S2 - GI/Abdominal Exam GI & Abdominal Exam: Soft. absent: Tenderness - Extremities Exam Additional comments: both lower extremities with some swelling but no erythema or tenderness Results - Vital Signs Recent Vital Signs: Last Vital Signs Temp 98 F 11/03/17 21:04 Pulse 89 11/03/17 21:04 Resp 20 11/03/17 21:04 BP 118/61 11/03/17 21:04 Pulse Ox 100 11/03/17 16:45 - Labs Result Diagrams: 11/04/17 06:30 11/04/17 06:30 Assessment & Plan - Assessment and Plan (Free Text) Plan: Assessment left leg cellulitis with tenosynovitis, clinically improved, with no evidence of osteomyelitis or abscess HTN schizophrenia alcohol abuse HTN chronic renal failure Plan was on Teflaro and PO antibiotics - will start Cefazolin , check blood cx and will monitor clinically
[2017-11-04 12:33] LABS: HEPATITIS B SURFACE AG Negative (NEGATIVE)
[2017-11-04 12:39] LABS: HEPATITIS A IGM NEGATIVE (NEGATIVE); HEPATITIS B CORE AB NEGATIVE (NEGATIVE)
--- NOTE | 2017-11-04 13:25 | US ---
HISTORY: anemia, ITP, hep C COMPARISON: None. TECHNIQUE: Sonographic evaluation of the abdomen. FINDINGS: LIVER: Measures 15.2 cm. Normal echogenicity of the liver parenchyma. No mass. No intrahepatic bile duct dilatation. GALLBLADDER: Cholelithiasis. Contracted gallbladder. Thickening of the gallbladder wall, up to 4 mm, likely related to contracted status. No pericholecystic fluid. Negative sonographic Long sign. COMMON BILE DUCT: Measures 5 mm. No stones. No dilatation. PANCREAS: Unremarkable as visualized. No mass. No ductal dilatation. RIGHT KIDNEY: Measures 10.9cm. Normal echogenicity. No calculus, mass, or hydronephrosis. LEFT KIDNEY: Measures 10.2cm. Normal echogenicity. No calculus, mass, or hydronephrosis. SPLEEN: Mild splenomegaly. The spleen measures 14.1 cm in greatest dimension. AORTA: No aneurysmal dilatation. IVC: Unremarkable. OTHER FINDINGS: None. IMPRESSION: Cholelithiasis without evidence cholecystitis. Mild splenomegaly. Otherwise unremarkable.
[2017-11-04 14:14] LABS: HEPATITIS C ANTIBODY REACTIVE (NEGATIVE)
[2017-11-04 15:53] LABS: URINE APPEARANCE CLEAR (CLEAR); URINE BILIRUBIN NEGATIVE (NEGATIVE); URINE BLOOD NEGATIVE (NEGATIVE); URINE COLOR DARK YELLOW (YELLOW); URINE GLUCOSE (UA) NEGATIVE (NEGATIVE); URINE LEUKOCYTE ESTERASE NEGATIVE Leu/uL (NEGATIVE); URINE PROTEIN TRACE mg/dL (<30 mg/dL); URINE UROBILINOGEN 0.2 E.U./dL (<1 E.U./dL)
[2017-11-04 16:06] LABS: URINE BACTERIA NEG (NEG); URINE EPITHELIAL CELLS 0 - 2 /hpf (0-5); URINE RBC 0 - 2 /hpf (0-2); URINE WBC 0 - 2 /hpf (0-6)
[2017-11-04 17:43] LABS: FOLATE 5.4 ng/mL
--- NOTE | 2017-11-05 02:38 | CON ---
DATE: 11/04/2017 PSYCHIATRIC CONSULTATION HISTORY OF PRESENT ILLNESS: Patient is a 62-year-old white male. I reviewed the chart. Patient was admitted to the hospital yesterday after being brought to the emergency room. I saw him. He has been under my care for many years for schizophrenia. He failed to appear for his usual appointment 2 days ago in my office. Called his sister and went to visit him at home. He has been going out of his house very little since being treated here last month for a cellulitis of his leg. He has been also eating poorly at home when he has had no appetite. Patient has gotten out of the bed at home, sitting in a chair. However, patient gives no reason for his not wanting to leave the house. PAST MEDICAL HISTORY: Includes a history of hepatitis C. He has a history of alcohol abuse in the past. He has a history of hypertension. He has a history of recent cellulitis. Patient has also a recent history in the past of thrombocytopenia. SOCIAL HISTORY: As follows: He is unmarried. He has currently been a nonsmoker for 10 years. No alcohol abuse or substance abuse for past many years. He lives in a 2-family home with a sister who lives upstairs with her . Patient's mother from lung cancer approximately 5 years ago. Father from pancreatic cancer 8 years ago. I see him in recent years every 3 months, although he has been under the care for 20 years or more. LABORATORY DATA: His CBC reveals a white count of 6500. On admission, his hemoglobin was 6.8; after 2 units of packed red cells today, it was 7.5. His platelet count today was 128. His MCV was 96.3. Today his white count is 3900. Patient's reticulocyte count is 6.69. His haptoglobin is 113, which is normal. His lactic acid was 4.5. His sodium 143, potassium 3.3, chloride 110, CO2 20, anion gap 16, BUN 17, creatinine 1.1, estimated GFR greater than 60, calcium 8.1. His total bilirubin is 4. His total iron binding capacity and percent saturation were all normal. Alkaline phosphatase is 33, direct bilirubin elevated at 0.6. LDH is 394. Rest of his profile is within normal range. Patient was seen in consultation by Infectious Disease physician. He had abdominal ultrasound, which showed cholelithiasis without cholecystitis. He had mild splenomegaly. Patient had a chest x-ray on admission, which revealed no pleural effusions, no active pulmonary disease. CURRENT MEDICATIONS: Include Ancef IV, normal saline, Cozaar, folate. REVIEW OF SYSTEMS: He feels weak. He says "I'm at fall risk, I was told" but denies dizziness or syncope. Patient's other 12-point review is noncontributory. PHYSICAL EXAMINATION: VITAL SIGNS: Blood pressure 129/82, pulse of 88, afebrile, respirations 16 per minute. EXTREMITIES: He has a swollen discolored lower left extremity. PSYCHIATRIC: His mental status: He is awake. He is alert. He is coherent. His affect is somewhat flat. His sensorium is clear, recognizes me, able to give a history; however, somewhat vague and evasive about certain questions. Denies suicidal ideation. No hallucinations or paranoid delusions. Denies depression. IMPRESSION: Patient has a history of chronic schizophrenia, he has severe anemia, he has elevated direct bilirubin, elevated bilirubin; probably he has hemolytic anemia, history of hepatitis C, history of cellulitis and swelling of left lower extremity, and bruising on the back of his left extremity. Patient has a history in the past of idiopathic thrombocytopenic purpura. History in the distant past of alcohol abuse and hypertension. PLAN: Patient was switched in the recent days from Geodon 40 mg twice a day to Zyprexa. We will restart Zyprexa 5 mg in a.m. and at bedtime, and we will evaluate patient p.r.n. at your request. William Suazo MD
[2017-11-05] MEDS: ceFAZolin 1 gm in NS 1 GM/100 ML BAG IVPB SCH ×3 (05:09→21:59)
[2017-11-05] MEDS: Sodium Chloride 0.9% 1,000 ML IV SCH (05:10)
[2017-11-05 07:43] LABS: MEAN CELL VOLUME 92.3 fl (80.0-105.0); MEAN CORPUSCULAR HEMOGLOBIN 30.9 pg (25.0-35.0); MEAN CORPUSCULAR HGB CONC 33.5 g/dl (31.0-37.0); MEAN PLATELET VOLUME 9.5 fl (7.0-11.0); RBC 2.85 10^6/uL (3.5-6.1); RED CELL DISTRIBUTION WIDTH 19.5 % (11.5-14.5); WHITE BLOOD COUNT 3.6 10^3/ul (4.5-11.0)
[2017-11-05 07:50] LABS: HEMOGLOBIN 8.8 g/dL (14.0-18.0)
--- NOTE | 2017-11-05 08:13 | CP.PCM.PN ---
<Juju Raza - Last Filed: 11/05/17 10:25> Subjective - Date & Time of Evaluation Date of Evaluation: 11/05/17 Time of Evaluation: 07:00 - Subjective Subjective: GI Progress Note for Saranya Marino PGY2 Patient seen and examined at bedside. There were no acute overnight events as per nursing staff. Patient feels well today. He denies chest pain, abdominal pain, shortness of breath, nausea/vomiting/diarrhea/constipation, fever/chills, melena, numbness/tingling. Objective - Vital Signs/Intake and Output Vital Signs (last 24 hours): Temp Pulse Resp BP Pulse Ox 99 F 86 18 119/66 98 11/05/17 05:46 11/05/17 05:46 11/05/17 05:46 11/05/17 05:46 11/05/17 05:46 Intake and Output: 11/05/17 11/05/17 06:59 18:59 Intake Total 1580 Output Total 1900 Balance -320 - Medications Medications: Current Medications Folic Acid (Folic Acid) 1 mg PO DAILY [facility] [place] Last Admin: 11/04/17 10:05 Dose: 1 mg Cefazolin Sodium (Ancef 1gm In Ns) 1 gm in 100 mls @ 100 mls/hr IVPB Q8 [facility] [place] PRN Reason: Protocol Last Admin: 11/05/17 05:09 Dose: 100 mls/hr Sodium Chloride (Sodium Chloride 0.9%) 1,000 mls @ 100 mls/hr IV .Q10H [facility] Stop: 11/05/17 10:00 Last Admin: 11/05/17 05:10 Dose: 100 mls/hr Losartan Potassium (Cozaar) 50 mg PO DAILY [facility] [place] Last Admin: 11/04/17 10:07 Dose: 50 mg Olanzapine (Zyprexa) 5 mg PO 1000,2200 [facility] [place] Last Admin: 11/04/17 21:31 Dose: 5 mg - Labs Labs: 11/05/17 07:30 11/04/17 06:30 PT 17.8 SECONDS (9.4-12.5) H 11/03/17 12:08 INR 1.53 (0.93-1.08) H 11/03/17 12:08 APTT 26.3 Seconds (25.1-36.5) 11/03/17 12:08 - Constitutional Appears: No Acute Distress - Head Exam Head Exam: ATRAUMATIC, NORMAL INSPECTION, NORMOCEPHALIC - Eye Exam Eye Exam: Normal appearance Pupil Exam: Miosis, NORMAL ACCOMODATION - ENT Exam ENT Exam: Mucous Membranes Moist - Respiratory Exam Respiratory Exam: Clear to Ausculation Bilateral, NORMAL BREATHING PATTERN. absent: Rales, Rhonchi, Wheezes - Cardiovascular Exam Cardiovascular Exam: REGULAR RHYTHM, +S1, +S2. absent: Gallop, Rubs, Murmur - GI/Abdominal Exam GI & Abdominal Exam: Soft, Normal Bowel Sounds. absent: Guarding, Rigid, Tenderness, Mass, Rebound - Rectal Exam Rectal Exam: NORMAL INSPECTION. absent: Black Stool, Bloody Stool, Hemorrhoids - Extremities Exam Extremities Exam: Pedal Edema Additional comments: bruising on shins bilaterally - Neurological Exam Neurological Exam: Alert, Awake, CN II-XII Intact - Skin Skin Exam: Dry, Warm Assessment and Plan - Assessment and Plan (Free Text) Assessment: This is a 62yo male with past medical history of HTN, schizophrenia, ITP, hep C (treated) who is admitted for 1. Anemia (most likely hemolytic) - can be secondary to medications such as antibiotics (Teflaro) 2. Cellulitis of lower extremities 3. Hx of ITP 4. Hx of Hep C (treated) 5. Schizophrenia Plan: Hgb has improved after 2U PRBC. Haptoglobin, LDH, AFP noted to be normal. He is on Ancef for cellulitis. Abdominal U/S reviewed. It showed cholelithiasis without CBD dilation and mild splenomegaly. Hep C viral load is pending. Patient noted to be vitamin B12 deficient. Will give him one dose of B12 shot. Stool for occult blood is pending, but no overt bleeding seen on rectal exam. Medications adjusted as per psych for schizophrenia. Will discuss with PMD. Case seen, discussed and reviewed with Dr. Beverly. Saranya Raza PGY2 <Hiren Beverly V - Last Filed: 11/05/17 22:55> Objective - Vital Signs/Intake and Output Vital Signs (last 24 hours): Temp Pulse Resp BP Pulse Ox 98.2 F 73 20 126/68 98 11/05/17 17:33 11/05/17 18:00 11/05/17 17:33 11/05/17 17:33 11/05/17 05:46 Intake and Output: 11/05/17 11/06/17 18:59 06:59 Intake Total 720 Output Total 625 Balance 95 - Medications Medications: Current Medications Folic Acid (Folic Acid) 1 mg PO DAILY [facility] [place] Last Admin: 11/05/17 09:02 Dose: 1 mg Cefazolin Sodium (Ancef 1gm In Ns) 1 gm in 100 mls @ 100 mls/hr IVPB Q8 [facility] PRN Reason: Protocol Last Admin: 11/05/17 21:59 Dose: 100 mls/hr Losartan Potassium (Cozaar) 50 mg PO DAILY [facility] Last Admin: 11/05/17 09:01 Dose: 50 mg Olanzapine (Zyprexa) 5 mg PO 1000,2200 [facility] [place] Last Admin: 11/05/17 22:00 Dose: 5 mg - Labs Labs: 11/05/17 07:30 11/05/17 09:30 PT 17.8 SECONDS (9.4-12.5) H 11/03/17 12:08 INR 1.53 (0.93-1.08) H 11/03/17 12:08 APTT 26.3 Seconds (25.1-36.5) 11/03/17 12:08 Attending/Attestation - Attestation I have personally seen and examined this patient.: Yes I have fully participated in the care of the patient.: Yes I have reviewed all pertinent clinical information, including history, physical exam and plan: Yes Notes (Text): This is an addendum to GI progress report dictated by the Well Testing Operator.The patient was seen and examined earlier. Medical records, lab studies, imagings were reviewed. Last 24 hours events reviewed. Agreed with the above treatment plan as outlined in Well Testing Operator 's notes the with the addition of the following On examination abdomen soft no tend Tolerating the diet Hemolytic anemia mainly indirect bilirubin Drug-induced hemolytic process probable drug-induced History of ITP Cellulitis on antibiotics as per ID Follows up Hep C PCR 11/05/17 22:51
[2017-11-05 10:34] LABS: ALB/GLOB RATIO 1.1 (1.1-1.8); ALT/SGPT 18 U/L (7-56); AST/SGOT 22 U/L (17-59); BLOOD UREA NITROGEN 14 mg/dL (7-21); CALCIUM 8.1 mg/dL (8.4-10.5); GFR AFRICAN-AMERICAN > 60; GFR NON-AFRICAN AMERICAN > 60
--- NOTE | 2017-11-05 12:14 | CP.PCM.PN ---
Subjective - Date & Time of Evaluation Date of Evaluation: 11/05/17 Time of Evaluation: 10:40 - Subjective Subjective: Legs feel better, no fevers, not in distress. Objective - Vital Signs/Intake and Output Vital Signs (last 24 hours): Temp Pulse Resp BP Pulse Ox 99 F 86 18 119/66 98 11/05/17 05:46 11/05/17 05:46 11/05/17 05:46 11/05/17 05:46 11/05/17 05:46 Intake and Output: 11/05/17 11/05/17 06:59 18:59 Intake Total 1580 Output Total 1900 Balance -320 - Medications Medications: Current Medications Folic Acid (Folic Acid) 1 mg PO DAILY [facility] Last Admin: 11/04/17 10:05 Dose: 1 mg Cefazolin Sodium (Ancef 1gm In Ns) 1 gm in 100 mls @ 100 mls/hr IVPB Q8 [facility] PRN Reason: Protocol Last Admin: 11/05/17 05:09 Dose: 100 mls/hr Sodium Chloride (Sodium Chloride 0.9%) 1,000 mls @ 100 mls/hr IV .Q10H [facility] Stop: 11/05/17 10:00 Last Admin: 11/05/17 05:10 Dose: 100 mls/hr Losartan Potassium (Cozaar) 50 mg PO DAILY [facility] Last Admin: 11/04/17 10:07 Dose: 50 mg Olanzapine (Zyprexa) 5 mg PO 1000,2200 [facility] Last Admin: 11/04/17 21:31 Dose: 5 mg - Labs Labs: 11/05/17 07:30 11/04/17 06:30 PT 17.8 SECONDS (9.4-12.5) H 11/03/17 12:08 INR 1.53 (0.93-1.08) H 11/03/17 12:08 APTT 26.3 Seconds (25.1-36.5) 11/03/17 12:08 - Constitutional Appears: Chronically Ill - Head Exam Head Exam: NORMAL INSPECTION - ENT Exam ENT Exam: Mucous Membranes Moist - Neck Exam Neck Exam: absent: Lymphadenopathy, Meningismus - Respiratory Exam Respiratory Exam: Decreased Breath Sounds - Cardiovascular Exam Cardiovascular Exam: +S1, +S2 - GI/Abdominal Exam GI & Abdominal Exam: Soft. absent: Tenderness - Extremities Exam Additional comments: both legs with decreased swelling Assessment and Plan - Assessment and Plan (Free Text) Plan: Assessment left leg cellulitis with tenosynovitis, clinically improved, with no evidence of osteomyelitis or abscess HTN schizophrenia alcohol abuse HTN chronic renal failure Plan was on Teflaro and PO antibiotics - continue Cefazolin day 2; blood cx are negative - complete 7-10 days of therapy
[2017-11-06] MEDS: ceFAZolin 1 gm in NS 1 GM/100 ML BAG IVPB SCH ×3 (05:39→22:03)
[2017-11-06 07:08] LABS: HEMOGLOBIN 8.1 g/dL (14.0-18.0); MEAN CELL VOLUME 93.1 fl (80.0-105.0); MEAN CORPUSCULAR HEMOGLOBIN 31.2 pg (25.0-35.0); MEAN CORPUSCULAR HGB CONC 33.5 g/dl (31.0-37.0); MEAN PLATELET VOLUME 9.6 fl (7.0-11.0); RBC 2.6 10^6/uL (3.5-6.1); RED CELL DISTRIBUTION WIDTH 19.1 % (11.5-14.5); WHITE BLOOD COUNT 3.4 10^3/ul (4.5-11.0)
--- NOTE | 2017-11-06 08:29 | PN ---
DATE: 11/06/2017 FOLLOWUP NOTE SUBJECTIVE: He is comfortable in bed, in no acute distress. Bilateral lower extremity cellulitis reduced. No events overnight. He is able to ambulate. No abdominal pain. No nausea. No vomiting. REVIEW OF SYSTEMS: As per HPI. Rest of 12-point review of systems reviewed negative. MEDICATIONS: Cefazolin 1 g daily, folic acid 1 mg daily, Cozaar 50 mg daily, Zyprexa 5 mg p.o. b.i.d. LABORATORY DATA: No current labs. Hemoglobin from 11/06/2017 of 8.1. Bilirubin 4.1, potassium 3.5, creatinine 0.9. B12 of 234. PHYSICAL EXAMINATION: GENERAL: Comfortable in bed, in no acute distress. VITAL SIGNS: Temperature 94, blood pressure 121 x 65, heart rate is 83 per minute, blood pressure 121/65, respiratory rate 18 per minute, oxygen saturation 99% on room air. HEENT: No lymphadenopathy. CHEST: Air entry present and equal bilateral. No added sound. CARDIOVASCULAR: S1 and S2 normal. No murmur. No gallop. ABDOMEN: Soft, nontender. No hepatosplenomegaly. EXTREMITIES: Bilateral lower extremity cellulitis improved. Bilateral leg swelling improved. HOSPITAL FELLOW: Alert and oriented x3. No focal sensorimotor deficit. ASSESSMENT: 1. Anemia. 2. Leukopenia. 3. ITP. 4. Splenomegaly. 5. Bilateral lower extremity cellulitis. 6. Hepatitis C. PLAN: We will continue current medications. We will monitor the blood counts. No evidence of hemolysis on peripheral smear. He has pancytopenia, likely related to antibiotics. Haptoglobin, LDH normal. Urine normal. Urine culture is negative. UA was positive. Hepatitis C positive. Viral load pending. GI following. We will continue to monitor blood closely. CBC, CMP ordered for today. Currently status stable. Jojo Kidd MD MTDDemetrius
--- NOTE | 2017-11-06 09:00 | PN ---
DATE: 11/05/2017 SUBJECTIVE: He is comfortable in bed, in no acute distress. Bilateral lower extremity cellulitis improved. He was transfused 2 units of blood. Hemoglobin was 7.5, today is 8.8. Platelet count is 103. He has a history of ITP. Haptoglobin is within normal limits, 1.3. Retic count is 6.69. Bilirubin elevated to 4. LDH is normal. Urine did not show urobilinogen. No events overnight. REVIEW OF SYSTEMS: As per HPI. Rest of 12-point review of systems reviewed negative. PHYSICAL EXAMINATION: GENERAL: Comfortable in bed, in no acute distress. VITAL SIGNS: Temperature 98.7, heart rate is 80 per minute, blood pressure 120/65, respiratory rate 18 per minute, oxygen saturation 99% on room air. HEENT: Pallor positive. NECK: No lymphadenopathy. CHEST: Air entry present and equal bilateral. No added sound. CARDIOVASCULAR: S1, S2 normal. No murmur. No gallop. ABDOMEN: Soft, nontender. No hepatosplenomegaly. EXTREMITIES: Bilateral erythema reduced. Bilateral lower extremity swelling reduced. ELECTRON BEAM WELDER: Alert and oriented x3. No focal sensorimotor deficits. LABORATORY DATA: White count 3.6, hemoglobin 8.8, hematocrit 26.3, platelet 103. Sodium 140, potassium 3.5, creatinine 0.9, bilirubin 4.1, LDH 370. Urine nitrite positive. MEDICATIONS: Cefazolin, folic acid 1 mg daily, Cozaar, Zyprexa 5 mg b.i.d. ASSESSMENT: 1. Anemia. 2. Bilateral lower extremity cellulitis. 3. Immune thrombocytopenic purpura. 4. Hyperbilirubinemia. PLAN: Currently, hemoglobin and hematocrit stable. Bilirubin still elevated at 4. Ultrasound of abdomen did show mild splenomegaly with spleen size of 14 cm. There is no evidence of hemolysis. Peripheral smear reviewed. No hemolysis. LDH not elevated. Urine negative for urobilinogen. Haptoglobin within normal limits. We will continue to monitor CBC closely. He has leukopenia also, looks like transient bone marrow suppression, might be related to antibiotics. He received several courses of antibiotics for lower extremity cellulitis. Bilirubin still elevated at 4. We will continue to monitor. GI following. We will continue Zyprexa 5 mg b.i.d., Cozaar 50 mg daily. Continue folic acid 1 mg daily. Jojo Kidd MD [facility] # [id number]
[2017-11-06 09:17] LABS: BASO # 0.01 K/mm3 (0.0-2.0); BASO % 0.4 % (0.0-3.0); EOS # 0.1 (0.0-0.7); EOS % 3.4 % (1.5-5.0); GRAN # 1.84 (1.4-6.5); GRAN % 69.4 % (50.0-68.0); HEMOGLOBIN 8.3 g/dL (14.0-18.0); LYMPH # 0.5 (1.2-3.4); MEAN CELL VOLUME 92.5 fl (80.0-105.0); MEAN CORPUSCULAR HGB CONC 33.5 g/dl (31.0-37.0); MEAN PLATELET VOLUME 8.9 fl (7.0-11.0); MONO # 0.3 (0.1-0.6); MONO % 9.8 % (1.0-6.0); RBC 2.68 10^6/uL (3.5-6.1); RED CELL DISTRIBUTION WIDTH 18.7 % (11.5-14.5)
[2017-11-06 09:20] LABS: ALT/SGPT 24 U/L (7-56); AST/SGOT 23 U/L (17-59); BLOOD UREA NITROGEN 13 mg/dL (7-21); CALCIUM 8.1 mg/dL (8.4-10.5); GFR AFRICAN-AMERICAN > 60; GFR NON-AFRICAN AMERICAN > 60; WHITE BLOOD COUNT 2.7 10^3/ul (4.5-11.0)
--- NOTE | 2017-11-06 12:09 | PN ---
DATE: 11/06/2017 SUBJECTIVE: The patient is in bed, in no acute distress, nontoxic. PHYSICAL EXAMINATION: VITAL SIGNS: Temperature is 97, blood pressure is 120/60, respiratory rate of 18. HEENT: Unremarkable. NECK: Supple. LUNGS: Have decreased breath sounds. HEART: Normal S1, S2. ABDOMEN: Soft, nontender. EXTREMITIES: Examination of the legs are noted. LABORATORY EXAMINATION: Reveals a white count of 3.4, hemoglobin of 8. Chemistries reveals a BUN of 14, creatinine of 0.9. Urinalysis is noted and serology is hepatitis C reactive is positive. Microbiology reveals the blood cultures are no growth. ASSESSMENT AND PLAN: A 62-year-old male who initially had tachycardia, has leukopenia with sepsis secondary to left leg cellulitis with tenosynovitis improving and the patient with hypertension, schizophrenia, alcohol abuse, renal disease. He was on Teflaro, day #3 at this time of antibiotics. The patient is currently on cefazolin. We will follow clinically. Will need 7-10 days of antibiotics. Currently, day #3. Maybe able to switch to p.o. once the leg is improved. Virgil Parnell MD
[2017-11-06 18:21] VITALS: O2SAT 100
[2017-11-07] MEDS: ceFAZolin 1 gm in NS 1 GM/100 ML BAG IVPB SCH (05:50)
[2017-11-07 07:56] LABS: HEMOGLOBIN 7.9 g/dL (14.0-18.0); MEAN CELL VOLUME 93.3 fl (80.0-105.0); MEAN CORPUSCULAR HEMOGLOBIN 31.2 pg (25.0-35.0); MEAN CORPUSCULAR HGB CONC 33.5 g/dl (31.0-37.0); MEAN PLATELET VOLUME 8.9 fl (7.0-11.0); RBC 2.53 10^6/uL (3.5-6.1); RED CELL DISTRIBUTION WIDTH 17.6 % (11.5-14.5)
[2017-11-07 08:04] LABS: WHITE BLOOD COUNT 2.2 10^3/ul (4.5-11.0)
[2017-11-07] MEDS: Cefpodoxime (Vantin) 200 mg Tab PO SCH ×2 (09:32→22:40)
--- NOTE | 2017-11-07 09:58 | PN ---
DATE: 11/07/2017 FOLLOWUP NOTE SUBJECTIVE: He is comfortable in bed, in no acute distress. He has bilateral ecchymosis on the legs. He has history of ITP. Platelet count declined from 131,000 to 88,000. White count is worsening too, it is 2.2 today, it was 3.9. He has been requiring blood transfusion for the past 1 week. Hemoglobin declined to 7.9. Bilirubin has improved. He also has vitamin B12 deficiency. Denies any complaint except lower extremity pain and weakness. No fever. No cough with expectoration. REVIEW OF SYSTEMS: As per HPI. Rest of 12-point review of systems reviewed negative. PHYSICAL EXAMINATION: GENERAL: Comfortable in bed, in no acute distress. VITAL SIGNS: Temperature 98.7, heart rate is 97 per minute, blood pressure 110/70, respiratory rate 20 per minute, oxygen saturation 100% on room air. HEENT: Pallor positive. NECK: No lymphadenopathy. CHEST: Air entry present and equal bilateral. No added sound. CARDIOVASCULAR: S1, S2 normal. No murmur. No gallop. ABDOMEN: Soft, nontender. No hepatosplenomegaly. EXTREMITIES: Bilateral edema and bilateral ecchymosis present. MEDICATIONS: Vantin every 12 hours, doxycycline 100 mg every 12 hours, folic 1 mg daily, Cozaar 50 mg daily, Zyprexa 5 mg b.i.d. ASSESSMENT: 1. Pancytopenia. 2. Immune thrombocytopenic purpura. 3. Hyperbilirubinemia. 4. Bilateral leg cellulitis. PLAN: He has worsening of blood counts. He has been requiring blood transfusion every few days. He has diagnosis of ITP with antiplatelet antibody positive in the past. Worsening blood counts are concerning for bone marrow disorder. He will need bone marrow aspiration and biopsy for further evaluation. Bilirubin is declining. B12 deficiency, we will give IM B12 daily. He might have mild hemolysis. Blood work is negative for hemolysis workup. Peripheral smear negative for hemolysis. He is on psych medication, Zyprexa for a long time that might cause bone marrow disorder, bone marrow aplasia. Currently, on doxycycline and Vantin. We will continue that. Continue folic acid 1 mg daily. Jojo Kidd MD
--- NOTE | 2017-11-07 16:27 | PN ---
DATE: 11/07/2017 SUBJECTIVE: The patient is seen earlier this morning, is doing well. No nausea. No vomiting. His legs have much improved. PHYSICAL EXAMINATION: VITAL SIGNS: Temperature is 98, blood pressure is 110/70, respiratory rate of 20, heart rate of 73. HEENT: Examination of HEENT is unremarkable. NECK: Supple. LUNGS: Have decreased breath sounds. HEART: Normal S1, S2. ABDOMEN: Soft, nontender. No rebound or guarding. LABORATORY DATA: Laboratory examination reveals a white count of 2.2, hemoglobin of 7.9, platelets of 88. Chemistries reveals a BUN of 13, creatinine of 0.8. Cultures are negative. Dr. Kidd's note is reviewed from today. ASSESSMENT AND PLAN: A 62-year-old male who was seen earlier today in 269, bed 1 who was admitted with tachycardia, leukopenia and sepsis secondary to left leg cellulitis and tenosynovitis, which is greatly improved in a patient with hypertension, schizophrenia, alcohol abuse, renal disease, day #4 of antibiotics. We will switch to p.o. doxycycline and p.o. Vantin to complete therapy in a patient with pancytopenia, I am concerned about underlying hematologic disorder. Workup as per Dr. Kidd. We will follow with you. Virgil Parnell MD
--- NOTE | 2017-11-07 19:04 | PN ---
DATE: 11/07/2017 SUBJECTIVE: This patient was seen and evaluated earlier today. PHYSICAL EXAMINATION: GENERAL: The patient not in any distress. VITAL SIGNS: Stable. HEENT: Atraumatic, icteric. NECK: Supple. HEART: S1 and S2 heard. LUNGS: Bilateral air entry present. ABDOMEN: Soft. There is no tenderness. EXTREMITIES: Mild erythema present and edema present. NEUROLOGIC: Alert and oriented. LABORATORY DATA: The hemoglobin is 7.9, hematocrit 23.9, WBC 2.2, platelet count is now 88. IMPRESSION:and PLAN This is a 62-year-old patient now has cellulitis, on antibiotics; has elevated liver function tests, elevated total bilirubin; now has pancytopenia. I did discuss with Dr. Kidd before, less likely this is a hepatitis etiology. The patient had hepatitis C antibody positive, but we are waiting for the hepatitis C RNA quantitative assay His pancytopenia is less likely related to the hepatic etiology and would follow up. Request reticulocyte count Hematology followup Thank you very much for allowing us to participate in the care of this patient. Hiren Beverly MD [facility]
--- NOTE | 2017-11-07 22:28 | CP.PCM.PN ---
Subjective - Date & Time of Evaluation Date of Evaluation: 11/06/17 Time of Evaluation: 15:00 - Subjective Subjective: tolerating the diet no c/o of abdominal pain Objective - Vital Signs/Intake and Output Vital Signs (last 24 hours): Temp Pulse Resp BP Pulse Ox 98.5 F 88 20 123/67 100 11/07/17 00:01 11/07/17 00:01 11/07/17 00:01 11/07/17 00:01 11/07/17 00:01 Intake and Output: 11/06/17 11/07/17 18:59 06:59 Intake Total 480 Balance 480 - Medications Medications: Current Medications Folic Acid (Folic Acid) 1 mg PO DAILY [facility] Last Admin: 11/06/17 09:21 Dose: 1 mg Cefazolin Sodium (Ancef 1gm In Ns) 1 gm in 100 mls @ 100 mls/hr IVPB Q8 [facility] PRN Reason: Protocol Last Admin: 11/06/17 22:03 Dose: 100 mls/hr Losartan Potassium (Cozaar) 50 mg PO DAILY [facility] Last Admin: 11/06/17 09:21 Dose: 50 mg Olanzapine (Zyprexa) 5 mg PO 1000,2200 [facility] Last Admin: 11/06/17 22:03 Dose: 5 mg - Labs Labs: 11/06/17 09:00 11/06/17 09:00 PT 17.8 SECONDS (9.4-12.5) H 11/03/17 12:08 INR 1.53 (0.93-1.08) H 11/03/17 12:08 APTT 26.3 Seconds (25.1-36.5) 11/03/17 12:08 - Head Exam Head Exam: ATRAUMATIC, NORMAL INSPECTION - Eye Exam Eye Exam: EOMI, Normal appearance - Neck Exam Neck Exam: Full ROM (this gentleman on), Normal Inspection - Respiratory Exam Respiratory Exam: NORMAL BREATHING PATTERN. absent: Rales, Rhonchi ( only mildly) - Cardiovascular Exam Cardiovascular Exam: Irregular Rhythm, REGULAR RHYTHM, +S1. absent: JVD - GI/Abdominal Exam GI & Abdominal Exam: Soft, Normal Bowel Sounds (nadia August,). absent: Tenderness - Extremities Exam Extremities Exam: absent: Calf Tenderness Additional comments: patchy edema present - Neurological Exam Neurological Exam: Awake, Oriented x3 Assessment and Plan - Assessment and Plan (Free Text) Assessment: 1. Anemia, reticulocyte doses, increased to indirect bilirubin more suggestive of hemolytic anemia Stool for occult blood negative 2. Hips c antibody positive PCR RNA pending Other comorbidities include scizophrenia Plan: Followup LFT Reticulocyte count Followup Hematology followup
[2017-11-08 06:21] LABS: MEAN CORPUSCULAR HGB CONC 34.1 g/dl (31.0-37.0); MEAN PLATELET VOLUME 9.1 fl (7.0-11.0); RBC 2.9 10^6/uL (3.5-6.1); RED CELL DISTRIBUTION WIDTH 17.9 % (11.5-14.5)
--- NOTE | 2017-11-08 06:36 | CP.PCM.PN ---
Subjective - Date & Time of Evaluation Date of Evaluation: 11/08/17 Time of Evaluation: 07:00 - Subjective Subjective: GI Progress Note for Saranya Marino PGY2 Patient seen and examined at bedside. There were no acute overnight events as per nursing staff. Patient is resting comfortably in bed. He denies chest pain, shortness of breath, nausea/vomiting/diarrhea/constipation, fever/chills, numbness/tingling, or leg pain. He is able to ambulate to and from the bathroom. Objective - Vital Signs/Intake and Output Vital Signs (last 24 hours): Temp Pulse Resp BP Pulse Ox 98.0 F 83 18 106/60 100 11/08/17 00:01 11/08/17 05:12 11/08/17 00:01 11/08/17 00:01 11/08/17 00:01 Intake and Output: 11/07/17 11/08/17 18:59 06:59 Intake Total 865 575 Output Total 2 Balance 863 575 - Medications Medications: Current Medications Cefpodoxime Proxetil (Vantin) 200 mg PO Q12 [facility] PRN Reason: Protocol Stop: 11/12/17 10:01 Last Admin: 11/07/17 22:40 Dose: 200 mg Doxycycline Hyclate (Doryx) 100 mg PO Q12 [facility] PRN Reason: Protocol Stop: 11/12/17 10:01 Last Admin: 11/07/17 22:39 Dose: 100 mg Folic Acid (Folic Acid) 1 mg PO DAILY [facility] Last Admin: 11/07/17 09:32 Dose: 1 mg Losartan Potassium (Cozaar) 50 mg PO DAILY [facility] Last Admin: 11/07/17 09:32 Dose: 50 mg Olanzapine (Zyprexa) 5 mg PO 1000,2200 [facility] Last Admin: 11/07/17 22:39 Dose: 5 mg - Labs Labs: 11/07/17 07:40 11/06/17 09:00 PT 17.8 SECONDS (9.4-12.5) H 11/03/17 12:08 INR 1.53 (0.93-1.08) H 11/03/17 12:08 APTT 26.3 Seconds (25.1-36.5) 11/03/17 12:08 - Constitutional Appears: No Acute Distress - Head Exam Head Exam: ATRAUMATIC, NORMAL INSPECTION, NORMOCEPHALIC - Eye Exam Eye Exam: Scleral icterus - ENT Exam ENT Exam: Mucous Membranes Moist - Respiratory Exam Respiratory Exam: Clear to Ausculation Bilateral, NORMAL BREATHING PATTERN. absent: Rales, Rhonchi, Wheezes - GI/Abdominal Exam GI & Abdominal Exam: Soft, Normal Bowel Sounds. absent: Tenderness, Rebound - Extremities Exam Extremities Exam: Pedal Edema - Neurological Exam Neurological Exam: Alert, Awake, CN II-XII Intact - Skin Skin Exam: Dry, Warm Additional comments: some bruising of the shins bilaterally. Skin is jaundiced Assessment and Plan - Assessment and Plan (Free Text) Assessment: This is a 62yo male with past medical history of HTN, schizophrenia, ITP, hep C (treated) who is admitted for 1. Anemia (most likely hemolytic) - can be secondary to medications - s/p 6U PRBC 2. Pancytopenia - can be secondary to bone marrow suppression 3. Cellulitis of lower extremities 4. Hx of ITP 5. Hx of Hep C (treated) 6. Schizophrenia Plan: Hep C viral load undetectable. Thrombocytopenia less likely hepatic etiology. Will get manual platelet count. Patient may benefit from bone marrow biopsy. Patient is on antibiotics for cellulitis. Hematology on the case. Will discuss with PMD. Case seen, discussed and reviewed with Dr. Beverly. Saranya Raza PGY2
[2017-11-08 07:00] LABS: WHITE BLOOD COUNT 2.3 10^3/ul (4.5-11.0)
[2017-11-08] MEDS: Cefpodoxime (Vantin) 200 mg Tab PO SCH (09:09)
[2017-11-08 14:25] VITALS: PULSE 82
[2017-11-08 15:07] VITALS: BP 126/66; RESP 21; TEMP 97.8
--- NOTE | 2017-11-08 15:39 | CP.PCM.PN ---
Subjective - Date & Time of Evaluation Date of Evaluation: 11/08/17 Time of Evaluation: 13:35 - Subjective Subjective: Patient is resting comfortably in bed, no fevers. Improved swelling and pain of the legs. Objective - Vital Signs/Intake and Output Vital Signs (last 24 hours): Temp Pulse Resp BP Pulse Ox 98.2 F 72 20 124/67 100 11/08/17 06:00 11/08/17 06:00 11/08/17 06:00 11/08/17 06:00 11/08/17 06:00 Intake and Output: 11/08/17 11/08/17 06:59 18:59 Intake Total 575 Balance 575 - Medications Medications: Current Medications Cefpodoxime Proxetil (Vantin) 200 mg PO Q12 [facility] PRN Reason: Protocol Stop: 11/12/17 10:01 Last Admin: 11/07/17 22:40 Dose: 200 mg Doxycycline Hyclate (Doryx) 100 mg PO Q12 [facility] PRN Reason: Protocol Stop: 11/12/17 10:01 Last Admin: 11/07/17 22:39 Dose: 100 mg Folic Acid (Folic Acid) 1 mg PO DAILY [facility] Last Admin: 11/07/17 09:32 Dose: 1 mg Losartan Potassium (Cozaar) 50 mg PO DAILY [facility] Last Admin: 11/07/17 09:32 Dose: 50 mg Olanzapine (Zyprexa) 5 mg PO 1000,2200 [facility] Last Admin: 11/07/17 22:39 Dose: 5 mg - Labs Labs: 11/08/17 05:30 11/06/17 09:00 PT 17.8 SECONDS (9.4-12.5) H 11/03/17 12:08 INR 1.53 (0.93-1.08) H 11/03/17 12:08 APTT 26.3 Seconds (25.1-36.5) 11/03/17 12:08 - Constitutional Appears: Chronically Ill - Head Exam Head Exam: NORMAL INSPECTION - Neck Exam Neck Exam: absent: Meningismus - Respiratory Exam Respiratory Exam: Decreased Breath Sounds - Cardiovascular Exam Cardiovascular Exam: +S1, +S2 - GI/Abdominal Exam GI & Abdominal Exam: Soft. absent: Tenderness - Extremities Exam Additional comments: improved swelling of both legs Assessment and Plan - Assessment and Plan (Free Text) Plan: Assessment left leg cellulitis with tenosynovitis, clinically improved, with no evidence of osteomyelitis or abscess, clinically improving pancytopenia, etiology to be determined HTN schizophrenia alcohol abuse HTN chronic renal failure Plan on PO Vantin and Doxycycline to complete total 7-10 days of therapy follow up plans of Heme/Onc regarding work up for the pancytopenia
== END 2017-11-08 15:22 | disposition home or self-care (01) | DRG 603 ==
LOC: ED 10:32 → ERH 14:12 → 2RNO 16:42
PROVIDERS: ADMIT Internal Medicine Nephrology; ATTEND Internal Medicine Nephrology
PROC: 30233N1 Transfusion of Nonautologous Red Blood Cells into Peripheral Vein, Percutaneous Approach (ICD-10-PCS; principal; 2017-11-03)
DX: L03.116 Cellulitis of left lower limb (principal); D61.818 Other pancytopenia; D69.3 Immune thrombocytopenic purpura; D59.9 Acquired hemolytic anemia, unspecified; L03.115 Cellulitis of right lower limb; I12.9 Hypertensive chronic kidney disease with stage 1 through stage 4 chronic kidney disease, or unspecified chronic kidney disease; N18.9 Chronic kidney disease, unspecified; M65.9 Synovitis and tenosynovitis, unspecified; F39 Unspecified mood [affective] disorder; E53.8 Deficiency of other specified B group vitamins; R16.1 Splenomegaly, not elsewhere classified; F20.9 Schizophrenia, unspecified; F10.10 Alcohol abuse, uncomplicated; Z80.1 Family history of malignant neoplasm of trachea, bronchus and lung; Z80.0 Family history of malignant neoplasm of digestive organs; Z86.19 Personal history of other infectious and parasitic diseases; Z87.891 Personal history of nicotine dependence